=== PATIENT | female | born 2005 | race Hispanic/Latino ===

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

== ENCOUNTER 2023-04-01 22:40 | Emergency (ER) | payer OTHER ==
--- OUTSIDE RECORDS SUMMARY | 2023-04-01 23:10 | XMS REPORT | Continuity of Care Document ---
:2005 Author Organization [facility] t Address [address] [place] [address] [place] [id number] Care Team Providers Name Role Phone King LELE, Josefa Isabel Primary Care Physician PERLA ZAVALETA Attending Clinician Unavailable YAMILKA KUMAR Attending Clinician Unavailable CHULA KING Attending Clinician Unavailable SOPHIA MERCEDES Attending Clinician Unavailable SOPHIA MERCEDES Attending Clinician Unavailable Pob, [facility] Main Attending Clinician Unavailable EDSON WELCH Attending Clinician Unavailable Edson Welch DO Attending Clinician HILDA GÓMEZ Attending Clinician Unavailable Hilda Gómez MD Attending Clinician Nurse, [facility] Attending Clinician Unavailable Perla Zavaleta MD Attending Clinician Doctor Unassigned, [place] Attending Clinician Unavailable Chula King MD Attending Clinician Latosha GARCIA Attending Clinician Unavailable Latosha Guzman Attending Clinician PERLA OSBORNE Attending Clinician Unavailable Perla Osborne MD Attending Clinician Kadie Rock MD Attending Clinician KADIE ROCK Attending Clinician Unavailable GERALD PENDLETON Attending Clinician Unavailable Keerthi PILL MAKER, Gerald B Attending Clinician Liza PAC, Yamilka S Attending Clinician KJ GALLAGHER Attending Clinician Unavailable Kj Gallagher MD Attending Clinician Kanu Mercado CRNA Attending Clinician Drake Gallardo CRNA Attending Clinician Miguel Douglas MD Attending Clinician Nurse, [facility] Attending Clinician Unavailable Ultrasound, [facility] Mf Attending Clinician Unavailable Nomi Giron MD Attending Clinician Cathleen DICKEY, Iris Samson Attending Clinician Unavailable UNKNOWN, ATTENDING Attending Clinician Unavailable PERLA ZAVALETA Admitting Clinician Unavailable CHULA KING Admitting Clinician Unavailable KADIE ROCK Admitting Clinician Unavailable SOPHIA MERCEDES Admitting Clinician Unavailable Chula King MD Admitting Clinician PERLA OSBORNE Admitting Clinician Unavailable Kadie Rock MD Admitting Clinician Payers Payer Name Policy Type Policy Number Effective Date Expiration Date S z[place] [facility] [id number] 2016 HEALTH 00:00:00 [place] [facility] [facility] [id number] 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 [employer] Problems Condition Condition Condition Status Onset Resolution Last Treating Co mments Source Name Details Category Date Date Treatment Clinician Date PCOS PCOS Disease Active Univers (polycysti (polycysti 6-08 [place] c [place] syndrome[place] syndrome[place] 00 [facility] Pain Pain Disease Active Univers pelvic pelvic 4-26 ity of 00:00: [address] Galactorrh Galactorrh Disease Active U nivers ea ea 4-26 ity of 00:: [address] Possible Possible Disease Active Unive rs exposure exposure 2-13 ity of to STD to STD 00:00: [address] Abnormal Abnormal Disease Active Unive rs uterine uterine 2-13 ity of bleeding bleeding 00:00: [address] BMI BMI Disease Active Univers 30.0-30.9, 30.0-30.9, 2-13 it y of adult adult 00:00: [place] 00 [facility] Branch Late Late Disease Active Univers menses menses 2-13 ity of 00:00: [place] 00 [facility] Disease Active 2021-10 Univers control control 2-08 [place] of counseling [place] [facility] Menorrhagi Menorrhagi Disease Active 2021-10 U nivers a with a with 2-08 [place] irregular irregular [place] 00 [place] Peritonsil Peritonsil Disease Active Overview : Univers lar lar 8-16 Formatt[place] ity of abscess abscess 00:00: g of this [place] note Medical might be Branch different from the original. Added automatic ally from request for surgery [id number] Recurrent Recurrent Disease Active Overview: Univers tonsilliti tonsilliti 8-16 Formattin ity of s s 00:00: g of this [place] note Medical might be Branch different from the original. Added automatic ally from request for surgery [id number] Abnormal Abnormal Disease Active Unive rs maternal maternal 9-07 ity of glucose glucose 00:00: [place] tolerance, tolerance, 00 Me dical antepartum antepartum Br anch Acute low Acute low Disease Active Uni vers back pain back pain 5-04 ity of without without 00:00: [place] sciatica, sciatica, 00 Medi margarita unspecifie unspecifie Br anch d back d back pain pain laterality laterality Allergies, Adverse Reactions, Alerts Allergy Allergy Status Severity Reaction(s) Onset Inactive Treating Comm ents Source Name Type Date Date Clinician NO KNOWN Drug Active Univers ALLERGIE Class ity of S [facility] Social History Social Habit Start Date Stop Date Quantity Comments Source Alcohol intake 2023-03-19 2023-03-19 Ex-drinker [facility] 00:00:00 00:00:00 (finding) [facility] Exposure to 2023-01-18 2023-01-28 Not sure [facility] SARS-CoV-2 00:00:00 15:55:00 [facility] (event) [place] Tobacco use and 2022-09-18 2022-09-18 Smokeless tobacco Un iversity of exposure 00:00:00 00:00:00 non-user [facility] Sex Assigned At [birth year] Universit y of 00:00:00 00:00:00 [facility] Smoking Status Start Date Stop Date Source Never smoked tobacco [facility] Medications Ordered Filled Start Stop Current Ordering Indication Dosage Frequency Signature Comments Components Source Medication Medication Date Date Medication? Clinician (SIG) Name Name radha 2022-0 Yes [id number] 1{tbl} Take 1 Univers e-ethinyl 6-08 tablet by ity o f estradioL [place] ([place] 00 the [facility] TRI-CYCLEN, morning. Bran ch 28,) 0.18/0.215/ 0.25 mg-35 mcg (28) tablet naproxen 2022-0 Yes [id number] 550mg Take 1 Univers sodium 550 4-14 9100 tablet by ity of mg tablet 00:00: [place] 00 the [place] morning Branch and 1 tablet in the evening. Take with meals. methylPREDN 2022-0 Yes [id number] Take by Univers ISolone 4 4-14 9100 mouth ity of mg tablets 00:00: [place]INSTRU [place] CTIONS. Medical follow Branch package directions naproxen 2022-0 Yes [id number] 550mg Take 1 Univers sodium 550 4-14 9100 tablet by ity of mg tablet 00:00: [place] the [place] morning Branch and 1 tablet in the evening. Take with meals. methylPREDN 2022-0 Yes [id number] Take by Univers ISolone 4 4-14 9100 mouth ity of mg tablets 00:00: [place]INSTRU [place] CTIONS. Medical follow Branch package directions naproxen 2022-0 Yes [id number] 550mg Take 1 Univers sodium 550 4-14 9100 tablet by ity of mg tablet 00:00: [place] 00 the Medical morning Branch and 1 tablet in the evening. Take with meals. methylPREDN 3-0 Yes [id number] Take by Univers ISolone 4 4-14 9100 mouth ity of mg tablets 00:00: [place]INSTRU [place] CTIONS. Medical follow Branch package directions naproxen 2022-0 Yes [id number] 550mg Take 1 Univers sodium 550 4-14 9100 tablet by ity of mg tablet 00:00: [place] 00 the Medical morning Branch and 1 tablet in the evening. Take with meals. methylPREDN 2023-0 Yes [id number] Take by Univers ISolone 4 4-14 9100 mouth ity of mg tablets 00:00: [place]INSTRU [place] CTIONS. Medical follow Branch package directions naproxen 2023-0 Yes [id number] 550mg Take 1 Univers sodium 550 4-14 9100 tablet by ity of mg tablet 00:00: [place] 00 the Medical morning Branch and 1 tablet in the evening. Take with meals. methylPREDN 2023-0 Yes [id number] Take by Univers ISolone 4 4-14 9100 mouth ity of mg tablets 00:00: [place]INSTRU [place] CTIONS. Medical follow Branch package directions naproxen 2023-0 Yes [id number] 550mg Take 1 Univers sodium 550 4-14 9100 tablet by ity of mg tablet 00:00: [place] 00 the Medical morning Branch and 1 tablet in the evening. Take with meals. methylPREDN 3-0 Yes [id number] Take by Univers ISolone 4 4-14 9100 mouth ity of mg tablets 00:00: [place]INSTRU [place] CTIONS. Medical follow Branch package directions naproxen 2023-0 Yes [id number] 550mg Take 1 Univers sodium 550 4-14 9100 tablet by ity of mg tablet 00:00: [place] 00 the Medical morning Branch and 1 tablet in the evening. Take with meals. methylPREDN 2023-0 Yes [id number] Take by Univers ISolone 4 4-14 9100 mouth ity of mg tablets 00:00: [place]INSTRU [place] CTIONS. Medical follow Branch package directions naproxen 2023-0 Yes [id number] 550mg Take 1 Univers sodium 550 4-14 9100 tablet by ity of mg tablet 00:00: [place] 00 the Medical morning Branch and 1 tablet in the evening. Take with meals. methylPREDN 2023-0 Yes [id number] Take by Univers ISolone 4 4-14 9100 mouth ity of mg tablets 00:00: [place]INSTRU [place] CTIONS. Medical follow Branch package directions naproxen 2023-0 Yes [id number] 550mg Take 1 Univers sodium 550 4-14 9100 tablet by ity of mg tablet 00:00: [place] 00 the Medical morning Branch and 1 tablet in the evening. Take with meals. methylPREDN 2022-0 Yes [id number] Take by Univers ISolone 4 4-14 9100 mouth ity of mg tablets 00:00: [place]INSTRU [place] CTIONS. Medical follow Branch package directions naproxen 2022-0 Yes [id number] 550mg Take 1 Univers sodium 550 4-14 9100 tablet by ity of mg tablet 00:00: [place] 00 the Medical morning Branch and 1 tablet in the evening. Take with meals. methylPREDN 2022-0 Yes [id number] Take by Univers ISolone 4 4-14 9100 mouth ity of mg tablets 00:00: [place]INSTRU [place] CTIONS. Medical follow Branch package directions methocarbam 2022- Yes [id number] 500mg Take 1 Univers oL 500 mg 01-23 9100 tablet by ity of tablet 00:00: 04:59 mouth in [place] 00 :00 the Medical morning Branch and 1 tablet at noon and 1 tablet in the evening. Do all this for 5 days. methocarbam 2022- Yes [id number] 500mg Take 1 Univers oL 500 mg 14 01-29 9100 tablet by ity of tablet 00:00: 04:59 mouth in [place] 00 :00 the Medical morning Branch and 1 tablet at noon and 1 tablet in the evening. Do all this for 5 days. methocarbam 2022- No [id number] 500mg Take 1 Univers oL 500 mg 414 01-29 9100 tablet by ity of tablet 00:00: 04:59 mouth in [place] 00 :00 the Medical morning Branch and 1 tablet at noon and 1 tablet in the evening. Do all this for 5 days. methocarbam 2022- No [id number] 500mg Take 1 Univers oL 500 mg 4-14 - 9100 tablet by ity of tablet 00:00: 04:59 mouth in [place] 00 :00 the Medical morning Branch and 1 tablet at noon and 1 tablet in the evening. Do all this for 5 days. methocarbam 2022- No [id number] 500mg Take 1 Univers oL 500 mg 4-14 0420 9100 tablet by ity of tablet 00:00: 04:59 mouth in [place] 00 :00 the Medical morning Branch and 1 tablet at noon and 1 tablet in the evening. Do all this for 5 days. predniSONE 2021-10 Yes [id number] 60mg Take 3 U nivers 20 mg 2-29 tablets by ity of tablet 00:00: mouth [place] 00 every Medical morning. Branch amoxicillin 2021-10 Yes [id number] 1{tbl} Take 1 Univers -clavulanat 2-29 tablet by ity of e 875-125 00:00: mouth [place] mg per 00 every 12 Medical tablet (twelve) Branch hours. predniSONE 2021-10 Yes [id number] 60mg Take 3 U nivers 20 mg 2-29 tablets by ity of tablet 00:00: mouth [place] 00 every Medical morning. Branch amoxicillin 2021-10 Yes [id number] 1{tbl} Take 1 Univers -clavulanat 2-29 tablet by ity of e 875-125 00:00: mouth [place] mg per 00 every 12 Medical tablet (twelve) Branch hours. predniSONE 2021-10 Yes [id number] 60mg Take 3 U nivers 20 mg 2-29 tablets by ity of tablet 00:00: mouth [place] 00 every Medical morning. Branch amoxicillin 2021-10 Yes [id number] 1{tbl} Take 1 Univers -clavulanat 2-29 tablet by ity of e 875-125 00:00: mouth [place] mg per 00 every 12 Medical tablet (twelve) Branch hours. predniSONE 2021-10 Yes [id number] 60mg Take 3 U nivers 20 mg 2-29 tablets by ity of tablet 00:00: mouth [place] 00 every Medical morning. Branch amoxicillin 2021-10 Yes [id number] 1{tbl} Take 1 Univers -clavulanat 2-29 tablet by ity of e 875-125 00:00: mouth [place] mg per 00 every 12 Medical tablet (twelve) Branch hours. predniSONE 2021-10 Yes [id number] 60mg Take 3 U nivers 20 mg 2-29 tablets by ity of tablet 00:00: mouth [place] 00 every Medical morning. Branch amoxicillin 2021-10 Yes [id number] 1{tbl} Take 1 Univers -clavulanat 2-29 tablet by ity of e 875-125 00:00: mouth [place] mg per 00 every 12 Medical tablet (twelve) Branch hours. predniSONE 2021-10 Yes [id number] 60mg Take 3 U nivers 20 mg 2-29 tablets by ity of tablet 00:00: mouth [place] 00 every Medical morning. Branch amoxicillin 2021-10 Yes [id number] 1{tbl} Take 1 Univers -clavulanat 2-29 tablet by ity of e 875-125 00:00: mouth [place] mg per 00 every 12 Medical tablet (twelve) Branch hours. predniSONE 2021-10 Yes [id number] 60mg Take 3 U nivers 20 mg 2-29 tablets by ity of tablet 00:00: mouth [place] 00 every Medical morning. Branch amoxicillin 2021-10 Yes [id number] 1{tbl} Take 1 Univers -clavulanat 2-29 tablet by ity of e 875-125 00:00: mouth [place] mg per 00 every 12 Medical tablet (twelve) Branch hours. predniSONE 2021-10 Yes [id number] 60mg Take 3 U nivers 20 mg 2-29 tablets by ity of tablet 00:00: mouth [place] 00 every Medical morning. Branch amoxicillin 2021-10 Yes [id number] 1{tbl} Take 1 Univers -clavulanat 2-29 tablet by ity of e 875-125 00:00: mouth [place] mg per 00 every 12 Medical tablet (twelve) Branch hours. predniSONE 2021-10 Yes [id number] 60mg Take 3 U nivers 20 mg 2-29 tablets by ity of tablet 00:00: mouth [place] 00 every Medical morning. Branch amoxicillin 2021-10 Yes [id number] 1{tbl} Take 1 Univers -clavulanat 2-29 tablet by ity of e 875-125 00:00: mouth [place] mg per 00 every 12 Medical tablet (twelve) Branch hours. predniSONE 2021-10 Yes [id number] 60mg Take 3 U nivers 20 mg 2-29 tablets by ity of tablet 00:00: mouth [place] 00 every Medical morning. Branch amoxicillin 2021-10 Yes [id number] 1{tbl} Take 1 Univers -clavulanat 2-29 tablet by ity of e 875-125 00:00: mouth [place] mg per 00 every 12 Medical tablet (twelve) Branch hours. predniSONE 2021- Yes [id number] 60mg Take 3 U nivers 20 mg 2-29 tablets by ity of tablet 00:00: mouth [place] 00 every Medical morning. Branch amoxicillin 2021-10 Yes [id number] 1{tbl} Take 1 Univers -clavulanat 2-29 tablet by ity of e 875-125 00:00: mouth [place] mg per 00 every 12 Medical tablet (twelve) Branch hours. predniSONE 2021-10 Yes [id number] 60mg Take 3 U nivers 20 mg 2-29 tablets by ity of tablet 00:00: mouth [place] 00 every Medical morning. Branch amoxicillin 2021-10 Yes [id number] 1{tbl} Take 1 Univers -clavulanat 2-29 tablet by ity of e 875-125 00:00: mouth [place] mg per 00 every 12 Medical tablet (twelve) Branch hours. predniSONE 2021-10 Yes [id number] 60mg Take 3 U nivers 20 mg 2-29 tablets by ity of tablet 00:00: mouth [place] 00 every Medical morning. Branch amoxicillin 2021-10 Yes [id number] 1{tbl} Take 1 Univers -clavulanat 2-29 tablet [...] 00 Medical (50,000 Branch unit) capsule ergocalcife 2021-1 Yes Univer s rol, 0-04 ity of vitamin d2, 00:00: [place] 1,250 mcg 00 Medical (50,000 Branch unit) capsule ergocalcife 2021-1 Yes Univer s rol, 0-04 ity of vitamin d2, 00:00: [place] 1,250 mcg 00 Medical (50,000 Branch unit) capsule ergocalcife 2021-1 Yes Univer s rol, 0-04 ity of vitamin d2, 00:00: [place] 1,250 mcg 00 Medical (50,000 Branch unit) capsule ergocalcife 2021-1 Yes Univer s rol, 0-04 ity of vitamin d2, 00:00: [place] 1,250 mcg 00 Medical (50,000 Branch unit) capsule ergocalcife 2021-1 Yes Univer s rol, 0-04 ity of vitamin d2, 00:00: [place] 1,250 mcg 00 Medical (50,000 Branch unit) capsule ergocalcife 2021-1 Yes Univer s rol, 0-04 ity of vitamin d2, 00:00: [place] 1,250 mcg 00 Medical (50,000 Branch unit) capsule ergocalcife 2021-1 Yes Univer s rol, 0-04 ity of vitamin d2, 00:00: [place] 1,250 mcg 00 Medical (50,000 Branch unit) capsule ergocalcife 2021-1 Yes Univer s rol, 0-04 ity of vitamin d2, 00:00: [place] 1,250 mcg 00 Medical (50,000 Branch unit) capsule ergocalcife 2021-1 Yes Univer s rol, 0-04 ity of vitamin d2, 00:00: [place] 1,250 mcg 00 Medical (50,000 Branch unit) capsule ergocalcife 2021-1 Yes Univer s rol, 0-04 ity of vitamin d2, 00:00: [place] 1,250 mcg 00 Medical (50,000 Branch unit) capsule ergocalcife 2021-1 Yes Univer s rol, 0-04 ity of vitamin d2, 00:00: [place] 1,250 mcg 00 Medical (50,000 Branch unit) capsule ergocalcife 2021-1 Yes Univer s rol, 0-04 ity of vitamin d2, 00:00: [place] 1,250 mcg 00 Medical (50,000 Branch unit) capsule ergocalcife 2021-1 Yes [facility] rol, 0-04 ity of vitamin d2, 00:00: [place] 1,250 mcg 00 Medical (50,000 Branch unit) capsule ergocalcife 2021-1 Yes [facility] rol, 0-04 ity of vitamin d2, 00:00: [place] 1,250 mcg 00 Medical (50,000 Branch unit) capsule ergocalcife 2021-1 Yes [facility] rol, 0-04 ity of vitamin d2, 00:00: [place] 1,250 mcg 00 Medical (50,000 Branch unit) capsule methylPREDN 2021-0 Yes [id number] Take by [facility] ISolone 4 8-15 mouth ity of mg tablets 00:00: [place]-INSTRU [place] CTIONS. Medical follow Branch package directions methylPREDN 2021-0 Yes [id number] Take by [facility] ISolone 4 8-15 mouth ity of mg tablets 00:00: SEE-INSTRU [place] 00 CTIONS. Medical follow Branch package directions methylPREDN 2021-0 Yes [id number] Take by Univers ISolone 4 8-15 mouth ity of mg tablets 00:00: SEE-INSTRU [place] 00 CTIONS. Medical follow Branch package directions methylPREDN 2-0 Yes [id number] Take by Univers ISolone 4 8-15 mouth ity of mg tablets 00:00: SEE-INSTRU [place] 00 CTIONS. Medical follow Branch package directions methylPREDN 2-0 2022- No [id number] Take by Univers ISolone 4 8-15 12-08 mouth ity of mg tablets 00:00: 00:00 SEE-INSTRU [place] 00 :00 CTIONS. Medical follow Branch package directions methylPREDN 2-0 2022- No [id number] Take by Univers ISolone 4 8-15 12-08 mouth ity of mg tablets 00:00: 00:00 SEE-INSTRU [place] 00 :00 CTIONS. Medical follow Branch package directions amoxicillin 2-0 2022- No [id number] 1{tbl} Take 1 Univers -clavulanat 8-15 08-30 tablet by it y of e 00:00: 04:59 mouth in [place] (AUGMENTIN) 00 :00 the Medical 875-125 mg morning Branch per tablet and 1 tablet in the evening. Do all this for 14 days. methylPREDN 2021-0 Yes [id number] Take by Univers ISolone 4 7-29 mouth ity of mg tablets 00:00: SEE-INSTRU [place] 00 CTIONS. Medical follow Branch package directions methylPREDN 2021-0 Yes [id number] Take by Univers ISolone 4 7-29 mouth ity of mg tablets 00:00: SEE-INSTRU [place] 00 CTIONS. Medical follow Branch package directions methylPREDN 2021-0 Yes [id number] Take by Univers ISolone 4 7-29 mouth ity of mg tablets 00:00: [place]-INSTRU [place] 00 CTIONS. Medical follow Branch package directions methylPREDN 2021-0 Yes [id number] Take by [facility] ISolone 4 7-29 mouth ity of mg tablets 00:00: [place]-INSTRU [place] CTIONS. Medical follow Branch package directions methylPREDN 2021-0 2- No [id number] Take by Univers ISolone 4 7-29 12-08 mouth ity of mg tablets 00:00: 00:00 SEE-INSTRU [place] 00 :00 CTIONS. Medical follow Branch package directions methylPREDN 2021-0 2- No [id number] Take by [facility] ISolone 4 7-29 12-08 mouth ity of mg tablets 00:00: 00:00 SEE-INSTRU [place] 00 :00 CTIONS. Medical follow Branch package directions ondansetron 2021-0 Yes [id number] 1 or 2 Univers 4 mg tablet 7-19 tablets ity o f 00:00: every 6 [place] 00 hours as Medical needed for Branch nausea ondansetron 2021-0 Yes [id number] 1 or 2 Univers 4 mg tablet 7-19 tablets ity o f 00:00: every 6 [place] 00 hours as Medical needed for Branch nausea ondansetron 2-0 Yes [id number] 1 or 2 Univers 4 mg tablet 7-19 tablets ity o f 00:00: every 6 [place] 00 hours as Medical needed for Branch nausea ondansetron 2-0 Yes [id number] 1 or 2 Univers 4 mg tablet 7-19 tablets ity o f 00:00: every 6 [place] 00 hours as Medical needed for Branch nausea ondansetron 2-0 2022- No [id number] 1 or 2 Univers 4 mg tablet 7-19 12-08 tablets ity of 00:00: 00:00 every 6 [place] 00 :00 hours as Medical needed for Branch nausea ondansetron 0 2022- No [id number] 1 or 2 Univers 4 mg tablet 04-29-08 tablets ity of 00:00: 00:00 every 6 [place] 00 :00 hours as Medical needed for Branch nausea ibuprofen 2021-0 Yes [id number] 600mg Take 1 Un jones 600 mg 7-13 tablet by ity of tablet 00:00: mouth [place] 00 every 6 Medical (six) Branch hours as needed for Pain (scale 4-6). ibuprofen 2021-0 Yes [id number] 600mg Take 1 Un jones 600 mg 7-13 tablet by ity of tablet 00:00: mouth [place] 00 every 6 Medical (six) Branch hours as needed for Pain (scale 4-6). ibuprofen 2021-0 Yes [id number] 600mg Take 1 Un jones 600 mg 7-13 tablet by ity of tablet 00:00: mouth [place] 00 every 6 Medical (six) Branch hours as needed for Pain (scale 4-6). ibuprofen 2021-0 Yes [id number] 600mg Take 1 Un jones 600 mg 7-13 tablet by ity of tablet 00:00: mouth [place] 00 every 6 Medical (six) Branch hours as needed for Pain (scale 4-6). ibuprofen 2021-0 Yes [id number] 600mg Take 1 Un jones 600 mg 7-13 tablet by ity of tablet 00:00: mouth [place] 00 every 6 Medical (six) Branch hours as needed for Pain (scale 4-6). ibuprofen 2021-0 Yes [id number] 600mg Take 1 Un jones 600 mg 7-13 tablet by ity of tablet 00:00: mouth [place] 00 every 6 Medical (six) Branch hours as needed for Pain (scale 4-6). ibuprofen 2021-0 Yes [id number] 600mg Take 1 Un jones 600 mg 7-13 tablet by ity of tablet 00:00: mouth [place] 00 every 6 Medical (six) Branch hours as needed for Pain (scale 4-6). ibuprofen 2021-0 Yes [id number] 600mg Take 1 Un jones 600 mg 7-13 tablet by ity of tablet 00:00: mouth [place] 00 every 6 Medical (six) Branch hours as needed for Pain (scale 4-6). ibuprofen 2022-0 Yes [id number] 600mg Take 1 Un jones 600 mg 7-13 tablet by ity of tablet 00:00: mouth [place] 00 every 6 Medical (six) Branch hours as needed for Pain (scale 4-6). ibuprofen 2022-0 Yes [id number] 600mg Take 1 Un jones 600 mg 7-13 tablet by ity of tablet 00:00: mouth [place] 00 every 6 Medical (six) Branch hours as needed for Pain (scale 4-6). ibuprofen 202-0 Yes [id number] 600mg Take 1 Un jones 600 mg 7-13 tablet by ity of tablet 00:00: mouth [place] 00 every 6 Medical (six) Branch hours as needed for Pain (scale 4-6). ibuprofen 2022-0 Yes [id number] 600mg Take 1 Un jones 600 mg 7-13 tablet by ity of tablet 00:00: mouth [place] 00 every 6 Medical (six) Branch hours as needed for Pain (scale 4-6). ibuprofen 2021-0 Yes [id number] 600mg Take 1 Un jones 600 mg 7-13 tablet by ity of tablet 00:00: mouth [place] 00 every 6 Medical (six) Branch hours as needed for Pain (scale 4-6). ibuprofen 2021-0 Yes [id number] 600mg Take 1 Un jones 600 mg 7-13 tablet by ity of tablet 00:00: mouth [place] 00 every 6 Medical (six) Branch hours as needed for Pain (scale 4-6). ibuprofen 2022-0 Yes [id number] 600mg Take 1 Un jones 600 mg 7-13 tablet by ity of tablet 00:00: mouth [place] 00 every 6 Medical (six) Branch hours as needed for Pain (scale 4-6). ibuprofen 2022-0 Yes [id number] 600mg Take 1 Un jones 600 mg 7-13 tablet by ity of tablet 00:00: mouth [place] 00 every 6 Medical (six) Branch hours as needed for Pain (scale 4-6). ibuprofen 2022-0 Yes [id number] 600mg Take 1 Un jones 600 mg 7-13 tablet by ity of tablet 00:00: mouth [place] 00 every 6 Medical (six) Branch hours as needed for Pain (scale 4-6). ibuprofen 2022-0 Yes [id number] 600mg Take 1 Un jones 600 mg 7-13 tablet by ity of tablet 00:00: mouth [place] 00 every 6 Medical (six) Branch hours as needed for Pain (scale 4-6). ibuprofen 2021-0 Yes [id number] 600mg Take 1 Un jones 600 mg 7-13 tablet by ity of tablet 00:00: mouth [place] 00 every 6 Medical (six) Branch hours as needed for Pain (scale 4-6). ibuprofen 2021-0 Yes [id number] 600mg Take 1 Un jones 600 mg 7-13 tablet by ity of tablet 00:00: mouth [place] 00 every 6 Medical (six) Branch hours as needed for Pain (scale 4-6). levonorgest 2021-0 Yes [id number] 1{tbl} Take 1 Univers rel-ethinyl 4-12 tablet by ity of estradiol 00:00: mouth [place] 0.1-20 00 daily. Medical mg-mcg per Branch tablet levonorgest 2021-0 Yes [id number] 1{tbl} Take 1 Univers rel-ethinyl 4-12 tablet by ity of estradiol 00:00: mouth [place] 0.1-20 00 daily. Medical mg-mcg per Branch tablet levonorgest 2021-0 Yes [id number] 1{tbl} Take 1 Univers rel-ethinyl 4-12 tablet by ity of estradiol 00:00: mouth [place] 0.1-20 00 daily. Medical mg-mcg per Branch tablet levonorgest 2021-0 Yes [id number] 1{tbl} Take 1 Univers rel-ethinyl 4-12 tablet by ity of estradiol 00:00: mouth [place] 0.1-20 00 daily. Medical mg-mcg per Branch tablet levonorgest 2021-0 2021- No [id number] 1{tbl} Take 1 Univers rel-ethinyl 4-12 12-08 tablet by it y of estradiol 00:00: 00:00 mouth [place] 0.1-20 00 :00 daily. Medical mg-mcg per Branch tablet levonorgest 2021-0 2021- No [id number] 1{tbl} Take 1 Univers rel-ethinyl 4-12 12-08 tablet by it y of estradiol 00:00: 00:00 mouth [place] 0.1-20 00 :00 daily. Medical mg-mcg per Branch tablet Yes [id number] 1{tbl} Take 1 U nivers vit w/iron 3-29 tablet by ity of fumarate 00:00: mouth [place] and [place] 00 daily. Medical ( Branch VITAMIN WITH MINERALS) tablet Yes [id number] 1{tbl} Take 1 U nivers vit w/iron 3-29 tablet by ity of fumarate 00:00: mouth [place] and [place] 00 daily. Medical ( Branch VITAMIN WITH MINERALS) tablet Yes [id number] 1{tbl} Take 1 U nivers vit w/iron 3-29 tablet by ity of fumarate 00:00: mouth [place] and [place] 00 daily. Medical ( Branch VITAMIN WITH MINERALS) tablet Yes [id number] 1{tbl} Take 1 U nivers vit w/iron 3-29 tablet by ity of fumarate 00:00: mouth [place] and [place] 00 daily. Medical ( Branch VITAMIN WITH MINERALS) tablet 2021- No [id number] 1{tbl} Take 1 Univers vit w/iron 3-29 12-08 tablet by ity of fumarate 00:00: 00:00 mouth [place] and [place] 00 :00 daily. Medical ( Branch VITAMIN WITH MINERALS) tablet 2021- No [id number] 1{tbl} Take 1 Univers vit w/iron 3-29 12-08 tablet by ity of fumarate 00:00: 00:00 mouth [place] and [place] 00 :00 daily. Medical ( Branch VITAMIN WITH MINERALS) tablet Immunizations Ordered Filled Immunization Date Status Comments [facility] e Immunization Name Name TD 2021-06-06 Completed University of 00:00:00 [facility] TDAP 2021-06-06 Completed University of 00:00:00 [facility] [place] TDAP 2021-06-06 Completed University of 00:00: [facility] TDAP 2021-06-06 Completed University of 00:00:00 [facility] TDAP 2021-06-06 Completed University of 00:00:00 [facility] TDAP 2021-06-06 Completed University of 00:00:00 [facility] TDAP 2021-06-06 Completed University of 00:00:00 [facility] TDAP 2021-06-06 Completed University of 00:00:00 [facility] TDAP 2021-06-06 Completed University of 00:00:00 [facility] TDAP 2021-06-06 Completed University of 00:00:00 [facility] TDAP 2021-06-06 Completed University of 00:00:00 [facility] TDAP 2021-06-06 Completed University of 00:00:00 [facility] TDAP 2021-06-06 Completed University of 00:00:00 [facility] TDAP 2021-06-06 Completed University of 00:00:00 [facility] TDAP 2021-06-06 Completed University of 00:00:00 [facility] TDAP 2021-06-06 Completed University of 00:00:00 [facility] TDAP 2021-06-06 Completed University of 00:00:00 [facility] TDAP 2021-06-06 Completed University of 00:00:00 [facility] TDAP 2021-06-06 Completed University of 00:00:00 [facility] TDAP 2021-06-06 Completed University of 00:00:00 [facility] Vital Signs Vital Name Observation Time Observation Value Comments Source Systolic blood 2023-03-19 14:04:00 122 mm[Hg] Univer sity of pressure [facility] Diastolic blood 2023-03-19 14:04:00 81 mm[Hg] Unive rsity of [facility] Heart rate 2023-03-19 14:04:00 80 /min [facility] Body temperature 2023-03-19 14:04:00 36.5 Nisha [facility] Body height 2023-03-19 14:04:00 152.4 cm [facility] Body weight 2023-03-19 14:04:00 70.035 kg [facility] BMI 2023-03-19 14:04:00 30.15 kg/m2 [facility] Systolic blood 2023-01-28 18:59:00 127 mm[Hg] Univer sity of pressure [facility] Diastolic blood 2023-01-28 18:59:00 89 mm[Hg] Unive rsity of pressure [facility] Heart rate 2023-01-28 18:59:00 74 /min [facility] Respiratory rate 2023-01-28 18:59:00 18 /min [facility] 2023-01-28 18:59:00 152.4 cm Universi ty of [facility] Body weight 2023-01-28 18:59:00 70.761 kg Universi ty of [facility] BMI 2023-01-28 18:59:00 30.47 kg/m2 Universi ty of [facility] Systolic blood 2023-01-23 17:03:00 122 mm[Hg] Univer sity of pressure [facility] Branch Diastolic blood 2023-01-23 17:03:00 82 mm[Hg] Unive rsity of pressure [facility] Branch Heart rate 2023-01-23 17:03:00 91 /min Universi ty of [facility] Body temperature 2023-01-23 17:03:00 36.72 Nisha Univ ersity of [facility] Respiratory rate 2023-01-23 17:03:00 14 /min Univ ersity of [facility] Body weight 2023-01-23 17:03:00 71.396 kg Universi ty of [facility] Oxygen saturation in 2023-01-23 17:03:00 99 /min University of Arterial blood by [facility] Pulse oximetry Branch Systolic blood 2022-11-24 16:49:00 121 mm[Hg] Univer sity of pressure [facility] Diastolic blood 2022-11-24 16:49:00 85 mm[Hg] Unive rsity of pressure [facility] Heart rate 2022-11-24 16:49:00 83 /min Universi ty of [facility] Body temperature 2022-11-24 16:49:00 36.67 Nisha Univ ersity of [facility] Branch Respiratory rate 2022-11-24 16:49:00 16 /min Univ ersity of [facility] Body height 2022-11-24 16:49:00 149.9 cm Universi ty of [facility] Body weight 2022-11-24 16:49:00 70.489 kg Universi ty of [facility] BMI 2022-11-24 16:49:00 31.39 kg/m2 Universi ty of [facility] Branch Systolic blood 2022-10-10 01:39:00 130 mm[Hg] Univer sity of pressure [facility] Branch Diastolic blood 2022-10-10 01:39:00 98 mm[Hg] Unive rsity of pressure [facility] Heart rate 2022-10-10 01:39:00 102 /min Universi ty of [facility] Body temperature 2022-10-10 01:39:00 36.61 Nisha Univ ersity of [facility] Respiratory rate 2022-10-10 01:39:00 20 /min Univ ersity of [facility] Body height 2022-10-10 01:39:00 149.9 cm Universi ty of [facility] Body weight 2022-10-10 01:39:00 70.126 kg Universi ty of [facility] BMI 2022-10-10 01:39:00 31.23 kg/m2 Universi ty of [facility] Oxygen saturation in 2022-10-10 01:39:00 98 /min University of Arterial blood by [facility] Pulse oximetry Branch Systolic blood 2022-10-01 17:06:00 118 mm[Hg] Univer sity of pressure [facility] [place] Diastolic blood 2022-10-01 17:06:00 79 mm[Hg] Unive rsity of pressure [facility] Heart rate 2022-10-01 17:06:00 78 /min Universi ty of [facility] Body temperature 2022-10-01 17:06:00 36.78 Nisha Univ ersity of [facility] Branch Respiratory rate 2022-10-01 17:06:00 18 /min Univ ersity of [facility] Body height 2022-10-01 17:06:00 149.9 cm Universi ty of [facility] Body weight 2022-10-01 17:06:00 68.493 kg Universi ty of [facility] BMI 2022-10-01 17:06:00 30.50 kg/m2 Universi ty of [facility] Systolic blood 2022-09-18 15:00:00 131 mm[Hg] Univer sity of pressure [facility] Diastolic blood 2022-09-18 15:00:00 83 mm[Hg] Unive rsity of pressure [facility] Heart rate 2022-09-18 15:00:00 78 /min Universi ty of [facility] Body height 2022-09-18 15:00:00 149.9 cm Universi ty of [facility] Body weight 2022-09-18 15:00:00 68.901 kg Universi ty of [facility] BMI 2022-09-18 15:00:00 30.68 kg/m2 Universi ty [facility] Oxygen saturation in 2022-09-18 15:00:00 98 /min [facility] Arterial blood by [facility] Pulse oximetry Branch Body height 2022-07-14 16:15:00 149.9 cm Universi ty [facility] Body weight 2022-07-14 16:15:00 68.765 kg Univers ty [facility] BMI 2022-07-14 16:15:00 30.62 kg/m2 Universi ty [facility] Body weight 2022-05-26 20:56:00 66.724 kg [facility] Procedures Procedure Date / Time Performing Source Performed Clinician US PELVIS COMPLETE WITH 2023-02-24 Daren [facility] of TRANSVAGINAL 20:54:19 [facility] WOUND/ASPIRATE OR ABSCESS 2023-01-[address] [facility] sity of CULTURE 21:33:00 [facility] WOUND CULTURE [facility]23[facility]01-[facility] 21:33:00 [facility] PROLACTIN 2023-01-28 [facility] 20:10:00 [facility] THYROID STIMULATING HORMONE 2023-01-28 [facility] 20:10:00 [facility] COMP. METABOLIC PANEL (95481) 2023-01-28 Carla, Un iversity of 20:10:00 [facility] LIPID PANEL ([id number])(TOTAL 2023-01-[facility] sity of CHOLESTEROL, TRIGLYCERIDES, 20:10:00 [facility] HDL) [place] DEHYDROEPIANDROSTERONE SULFATE 2023-01-28 [facility], U niversity of 20:10:00 [facility] CBC WITH DIFF 2023-01-28 [facility] 20:10:00 [facility] GLYCOSYLATED HEMOGLOBIN (A1C) 2023-01-28 Daren, iversity of 20:10:00 [facility] HEPATITIS B SURFACE ANTIGEN 2023-01-28 [facility] ersity of 20:10:00 [facility] HCV ANTIBODY 2023-01-28 [facility] of 20:10:00 [facility] ADC OR ADILENE ONLY - RPR 2023-01-28 [facility] sity of 20:10:00 [facility] HIV 1/2 AG-AB WITH REFLEX 2023-01-28 [facility] sity of 20:10:00 [facility] GC & CHLAMYDIA AMPLIFIED ASSAY 2023-01-28 [facility], U niversity of 19:02:00 [facility] TRICHOMONAS AMPLIFIED ASSAY 2023-01-28 [facility], Univ ersity of 19:02:00 [facility] CONSENT/REFUSAL FOR DIAGNOSIS 2023-01-23 [facility] 16:59:14 [place] [facility] POCT TEST 2022-11-24 [facility] o f 00:00:00 [facility] POCT TEST 2022-10-10 Hilda Gómez [facility] 02:57:00 [facility] ASSIGNMENT OF BENEFITS 2022-10-10 Doctor Unassigned, [facility] sity of 01:54:06 [facility]AP[facility] STREP SCREEN FOR GROUP A 2022-10-10 Hilda Gómez [facility] 01:48:00 [facility] RAPID INFLUENZA A/B 2022-10-10 Hilda Gómez [facility] 01:48:00 [facility] COVID-19 (ID NOW RAPID TESTING) 2022-10-10 Hilda Gómez [facility] 01:48:00 [facility] NOTICE OF PRIVACY PRACTICES 2022-10-10 Doctor Unassigned, U niversity of 01:26:12 [place] [facility] CONSENT/REFUSAL FOR DIAGNOSIS 2022-10-10 Doctor Mtigned, [facility] AND [facility] 01:25:34 [facility] PO[facility] 2022-10-01 [facility] o f 00:00:00 [facility] POCT TEST 2022-09-18 [facility] o f 15:08:00 [facility] Encounters Start End Encounter Admission Attending Care Care Encounter Source Date/Time Date/Time Type Type Clinicians Facility Department ID 2022-05-27 Outpatient Ella ZAVALETA UTRAQUEL MARIE [id number] Univers 07:53:54 PERLA ity of [facility] 2022-05-09 Emergency X [facility] CYNTHIA [id number] Univers 15:51:37 ity of [facility] 2022-05-09 Emergency X LIZA [facility] CYNTHIA [id number] Univers 15:45:58 YAMILKA ity of [facility] 2022-05-09 Emergency X [facility] CYNTHIA [id number] Univers 15:45:27 ity of [facility] 2022-05-09 Emergency X CHRISTINE [facility] CYNTHIA [id number] Univers 15:38:57 CHULA ity of [facility] 2022-05-09 Emergency X CHRISTINE [facility] CYNTHIA [id number] Univers 14:28:14 CHULA ity [facility] 2021-08-13 Outpatient P [facility] GAURI [id number] Univers 09:55:02 ity [facility] 2023-03-19 2023-03-19 Outpatient R SOPHIA MERCEDES [facility] B [id number] Univers 09:00:00 09:17:42 SOPHIA MERCEDES ity [facility] 2023-03-19 2023-03-19 Office [facility] 1.2.840.114 [id number] Univers 09:00:00 09:17:42 Visit Sophia CHAN 350.1.13.10 it y of WOMEN'S 4.2.7.2.686 [facility] [id number] [address] 2023-03-19 2023-03-19 [facility] 1.2.840.11 [id number] Univers 00:00:00 00:00:00 Ziggygwen REZA 350.1.13.10 it [place] [facility] [id number] [address] 2023-03-03 2023-03-03 Telephone [facility] 1.2.840.11 [id number] Univers 00:00:00 00:00:00 Sophia CHAN 350.1.13.10 it y of [place] [id number] [facility] [address] [place] 2023-02-24 2023-02-24 Outpatient R CARLANAVEEN SOPHIA [facility] B [id number] Univers 15:16:23 23:59:00 SOPHIA MERCEDES [facility] 2023-02-24 2023-02-24 [facility] 1.2.840.114 [id number] Univers 15:15:00 23:59:00 Encounter Sophia MATTSON 350.1.13.10 ity of [place] 4.2.7.2.686 [facility] [id number] [facility] [address] [place] 2023-01-28 2023-01-28 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 Moses, Radha Lab Main [facility] 1.2.8 [id number] Univers 15:00:00 15:15:00 Visit Sophia Mercedes 350.1.13. 10 ity [facility] 4.2.7.2.686 [facility] [id number] Ut dical [facility] 2023-01-28 2023-01-28 Outpatient R SOPHIA MERCEDES [facility] B [id number] Univers 13:30:00 14:16:52 SOPHIA MERCEDES [facility] 2023-01-28 2023-01-28 Office Daren [facility] 1.2.840.114 [id number] Univers 13:30:00 14:16:52 Visit Sophia CHAN 350.1.13.10 it y of [facility] 4.2.7.2.686 [facility] [id number] [facility] [address] [place] 2023-01-23 2023-01-23 Outpatient R DAREN SOPHIA [facility] B [id number] Univers 14:00:00 14:00:00 SOPHIA MERCEDES [facility] 2023-01-23 2023-01-23 Emergency X FLORENTIN WELCH ERT [id number] Univers 12:04:00 12:24:00 EDSON barajas [facility] 2023-01-23 2023-01-23 Emergency Singer WIRAQUEL [id number] Univers 12:04:00 12:24:00 Edson MATTSON 350.1.13.10 i ty [facility] 4.2.7.2.686 [facility] [id number] [place] [id number] Branch 2023-01-22 2023-01-22 Outpatient R CARLANAVEEN SOPHIA [facility] B [id number] Univers 10:00:00 10:00:00 SOPHIA MERCEDES kael [facility] 2022-11-24 2022-11-24 Outpatient R DAREN SOPHIA [facility] B [id number] Univers 10:30:00 11:00:50 [facility] 2022-11-24 2022-11-24 Office Daren [facility] 1.2.840.114 [id number] Univers 10:30:00 11:00:50 Visit Sophia CHAN 350.1.13.10 it y of WOMEN'S 4.2.7.2.686 [facility] [id number] [facility] [address] [place] 2022-10-20 2022-10-20 Outpatient R DAREN SOPHIA [facility] B [id number] Univers 09:30:00 09:30:00 SOPHIA MERCEDES kael [facility] 2022-10-13 2022-10-13 Outpatient R APRIL [facility] [id number] Univers 15:00:00 15:00:00 PERLA [facility] 2022-10-09 2022-10-09 Emergency X DALIA [facility] ERT [id number] Univers 19:49:00 21:03:00 HILDA [facility] 2022-10-09 2022-10-09 Emergency Dalia [facility] [id number] Univers 19:49:00 21:03:00 Hilda MATTSON 350.1.13.10 ity of [place] 4.2.7.2.686 [facility] [id number] [place] 427844 [place] 2022-10-08 2022-10-08 Outpatient R SOPHIA MERCEDES [facility] B [id number] Univers 11:30:00 11:30:00 SOPHIA MERCEDES [facility] 2022-10-02 2022-10-02 Outpatient R SOPHIA MERCEDES [facility] B [id number] Univers 10:00:00 10:00:00 SOPHIA MERCEDES [facility] 2022-10-01 2022-10-01 Nurse Nurse, Terrence [facility] 1.2.840.114 [id number] Univers 11:00:00 11:15:00 Visit Sophia Mercedes 350.1.13.1 0 ity of WOMEN'S 4.2.7.2.686 [facility] [id number] [address] 2022-10-01 2022-10-01 Outpatient R SOPHIA MERCEDES [facility] B [id number] Univers 11:00:00 11:00:00 SOPHIA MERCEDES [facility] 2022-09-18 2022-09-18 Outpatient R SOPHIA MERCEDES [facility] B [id number] Univers 08:30:00 09:16:33 SOPHIA MERCEDES [facility] 2022-09-18 2022-09-18 Office Daren [facility] 1.2.840.114 [id number] Univers 08:30:00 09:16:33 Visit Sophia CHAN 350.1.13.10 it y of WOMEN'S 4.2.7.2.686 [facility] [id number] [address] 2022-08-18 2022-08-18 Outpatient R APRIL [facility] [id number] Univers 16:00:00 16:00:00 PERLA barajas [facility] 2022-07-14 2022-07-14 [facility] [id number] Univers 10:30:00 17:06:10 PERLA barajas [facility] 2022-07-14 2022-07-14 Office JOSE Zavaleta 1.2.840.114 [id number] Univers 10:30:00 17:06:10 Visit Perla Demarco 350.1.13.10 it y of NATIONAL 4.2.7.2.686 [place] as [id number] [address] [place] 2022-05-26 2022-05-26 Office JOSE Zavaleta 1.2.840.114 [id number] Univers 15:45:00 17:28:44 Visit Perla Demarco 350.1.13.10 it y of NATIONAL 4.2.7.2.686 [place] as BANK [id number] [facility]. [address] [place] 2022-05-26 2022-05-26 [facility] [id number] Univers 15:45:00 17:28:44 [facility] 2022-05-26 2022-05-26 Outpatient [facility] [id number] Univers 15:45:00 17:28:44 PERLA karl [facility] 2022-05-26 2022-05-26 Outpatient [facility] [id number] Univers 15:45:00 15:45:00 [facility] 2022-05-26 2022-05-26 Orders Doctor KEEGAN 1.2.840.114 [id number] Univers 00:00:00 00:00:00 Only Unassigned, WILMER 350.1.13.10 ity of [place] [facility] 4.2.7.2.686 [place] as [id number] [facility] [address] [place] 2022-05-09 2022-05-09 Emergency Coblens, TRAUMA 1.2.840.114 [id number] Univers 16:46:00 21:14:00 [facility] 350.1.13.10 it [place] [id number] [facility] 0[address] [place] 2022-05-09 2022-05-09 Emergency X Latosha GARCIA [facility] ERT [id number] Univers 11:13:00 15:36:00 ity [facility] 2022-05-09 2022-05-09 Emergency Latosha Garcia [facility] 1.2.840.114 [id number] Univers 11:13:00 15:36:00 Lesvia MATTSON 350.1.13.10 i ty of [place] 4.2.7.2.686 [facility] [id number] [address] 2022-05-09 2022-05-09 Emergency X Latosha GARCIA [facility] ERT [id number] Univers 11:13:00 15:36:00 ity [facility] 2022-04-29 2022-04-29 [facility] [id number] Univers 15:58:00 17:59:00 PERLA ity [facility] 2022-04-29 2022-04-29 [facility] [id number] Univers 15:58:00 17:59:00 Perla MATTSON 350.1.13.10 ity of [place] 4.2.7.2.686 [facility] [id number] [address] 2022-04-23 2022-04-23 Emergency X Latosha GARCIA [facility] ERT [id number] Univers 14:02:00 15:29:00 ity [facility] 2022-04-23 2022-04-23 Emergency Latosha Garcia [facility] 1.2.840.114 [id number] Univers 14:02:00 15:29:00 Lesvia MATTSON 350.1.13.10 i ty [facility] 4.2.7.2.686 [facility] [id number] [address] 2022-01-21 2022-01-21 Office Kadie Rock [facility] 1.2.840.114 [id number] Univers 13:30:00 14:09:37 Ramana MATTSON 350.1.13.10 i ty of [place] 4.2.7.2.[address] [facility] PROFESSIO [id number] Ut dical [address] BUILDING 2022-01-21 2022-01-21 Outpatient R KADIE ROCK [facility] [id number] Univers 13:30:00 14:09:37 ity [facility] 2022-01-21 2022-01-21 Outpatient R KADIE ROCK [facility] [id number] Univers 13:30:00 13:30:00 ity [facility] 2022-01-21 2022-01-21 Kadie Meng [facility] 1.2.840.11 [id number] Univers 00:00:00 00:00:00 REZA 350.1.13.10 it y of WOMENS 4.2.7.2.686 [facility] [id number] [facility] [address] [place] 2022-01-16 2022-01-16 Emergency X KEERTHI, [facility] ERT [id number] Univers 19:19:00 19:22:00 GERALD ity [facility] 2022-01-16 2022-01-16 Emergency [place], [facility] 1.2.840.114 [id number] Univers 19:19:00 19:22:00 Gerald B [place] 350.1.13.10 i ty of [place] 4.2.7.2.686 [facility] [id number] [address] 2022-01-16 2022-01-16 Emergency X KEERTHI, [facility] ERT [id number] Univers 19:19:00 19:22:00 GERALD ity [facility] 2022-01-16 2022-01-16 Emergency X KEERTHI, [facility] ERT [id number] Univers 19:19:00 19:22:00 GERALD ity [facility] 2021-11-26 2021-11-26 Emergency X KUMAR, [facility] ERT [id number] Univers 13:04:00 14:50:00 YAMILKA ity [facility] 2021-11-26 2021-11-26 Emergency Liza, [facility] [id number] Univers 13:04:00 14:50:00 Yamilka S [place] 350.1.13.10 i ty of [place] 4.2.7.2.686 [facility] [id number] [address] 2021-11-26 2021-11-26 Emergency [facility] [id number] Univers 13:04:00 14:50:00 YAMILKA ity [facility] 2021-11-13 2021-11-13 Telephone Kadie Rock [facility] 1.2.840.11 [id number] Univers 00:00:00 00:00:00 REZA 350.1.13.10 it y [place]2.[place] [id number] [address] 2021-11-07 2021-11-07 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 Moses, Adc Lab Main [facility] 1.2.8 40.114 [id number] Univers 13:45:00 14:00:00 Visit Kadie [place] 350.1.13.10 ity [facility] 4.2.7.2.[place] [id number] Ut dical [address] 2021-11-07 2021-11-07 Outpatient R KADIE ROCK [facility] [id number] Univers 13:45:00 13:45:00 ity [facility] 2021-11-04 2021-11-04 Telephone Kadie Rock [facility] 1.2.840.11 4 [id number] Univers 00:00:00 00:00:00 REZA 350.1.13.10 it [place] [id number] [address] 2021-10-31 2021-10-31 Outpatient R KADIE ROCK [facility] [id number] Univers 13:30:00 14:08:32 ity [facility] 2021-10-31 2021-10-31 Office Kadie Rock [facility] 1.2.840.114 [id number] Univers 13:30:00 14:08:32 Visit REZA 350.1.13.10 it [place] [id number] [address] 2021-10-31 2021-10-31 Outpatient R KADIE ROCK [facility] [id number] Univers 13:30:00 13:30:00 ity [facility] 2021-09-27 2021-09-27 Outpatient R KADIE ROCK [facility] [id number] Univers 15:30:00 17:19:02 ity [facility] 2021-09-27 2021-09-27 Office Kadie Rock [facility] 1.2.840.114 [id number] Univers 15:30:00 17:19:02 Visit TWILA 350.1.13.10 i ty [facility] [place] [id number] Ut dical [address] 2021-09-27 2021-09-27 Outpatient R KADIE ROCK [facility] [id number] Univers 15:30:00 17:19:02 ity of [facility] 2021-09-27 2021-09-27 Telephone Kadie Rock 1.2.840.11 [id number] Univers 00:00:00 00:00:00 REZA 350.1.13.10 it [place] [id number] [address] 2021-09-27 2021-09-27 Orders Doctor KEEGAN 1.2.840.114 [id number] Univers 00:00:00 00:00:00 Only Unassigned, WILMER 350.1.13.10 ity of [place] [facility] 4.2.7.2.686 [place] as [id number] [address] 2021-09-12 2021-09-12 Telephone Kadie Rock 1.2.840.11 4 [id number] Univers 00:00:00 00:00:00 REZA 350.1.13.10 it [place] [id number] [address] 2021-09-10 2021-09-10 Outpatient R KADIE ROCK [facility] [id number] Univers 13:00:00 13:00:00 ity [facility] 2021-09-09 2021-09-09 Outpatient R KADIE ROCK [facility] [id number] Univers 15:15:00 15:51:16 ity [facility] 2021-09-09 2021-09-09 Routine Kadie Rock WIRAQUEL MICHELLE 1.2.840.114 [id number] Univers 15:13:19 15:51:16 REZA 350.1.13.10 i ty of [place] [id number] [address] 2021-09-04 2021-09-04 Nurse Nurse, [facility] 1.2.840.114 [id number] Univers 13:25:52 13:34:15 Visit Kadie Rock 350.1.13.10 ity of WOMEN'S 4.2.7.2.686 [facility] [id number] [address] 2021-09-04 2021-09-04 Outpatient R KADIE ROCK [facility] [id number] Univers 13:00:00 13:34:15 ity of [facility] 2021-08-23 2021-08-23 Outpatient R KJ GALLAGHER [facility] [id number] Univers 11:00:00 11:17:16 ity of [facility] 2021-08-23 2021-08-23 Nurse Nurse, [facility] 1.2.840.114 [id number] Univers 10:53:34 11:17:16 Visit Kj Gallagher 350.1.13.10 ity of WOMEN'S 4.2.7.2.686 [facility] [id number] [address] 2021-08-15 2021-08-18 Inpatient P KADIE ROCK [facility] GAURI [id number] Univers 09:58:00 12:30:00 ity of [facility] 2021-08-15 2021-08-18 [facility] Kadie Rock [facility] 1.2.840.114 [id number] Univers 09:58:00 12:30:00 Encounter TWILA 350.1.13.10 ity of [place] 4.2.7.2.686 [facility] [id number] [address] 2021-08-18 2021-08-18 [place] Kadie Rock [facility] 1.2.840.11 4 [id number] Univers 00:00:00 00:00:00 REZA 350.1.13.10 it y of WOMEN'S 4.2.7.2.686 [facility] [id number] [address] 2021-08-16 2021-08-16 Anesthesia Jess [facility] 1.2.840.114 [id number] Univers 20:03:10 20:03:10 Event Kanu TWILA 350.1.13.10 i ty [facility] 4.2.7.2.686 [facility] [id number] [facility] [address] 2021-08-16 2021-08-16 Anesthesia Drake Gallardo [facility] 1.2.8 40.114 [id number] Univers 07:16:00 14:08:00 Event Miguel Douglas TWILA 350.1.13.10 ity of [place] 4.2.7.2.686 [facility] [id number] [facility] [address] 2021-08-16 2021-08-16 Surgery Esvin Rockn [facility] 1.2.840.114 [id number] [facility] 00:00:00 00:00:00 TWILA 350.1.13.10 i ty of [place] 4.2.7.2.686 [facility] [id number] [facility] [address] 2021-08-15 2021-08-15 Routine Pranav Kadie [facility] 1.2.840.114 [id number] Univers 08:04:05 09:03:46 REZA 350.1.13.10 i ty of Visit WOMEN'S 4.2.7.2.686 [facility] [id number] [facility] [address] 2021-08-15 2021-08-15 Outpatient R ESVIN ROCKN [facility] [id number] [facility] 08:00:00 09:03:46 ity of [facility] 2021-08-09 2021-08-09 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 Radha Lopes Lab Main [facility] 1.2.8 40.114 [id number] [facility] 14:28:40 14:43:40 Visit Pranav Kadiejasbir MATTSON 350.1.13.10 ity [facility] 4.2.7.2.686 [facility] [id number] Ut dic[address] 2021-08-09 2021-08-09 Routine Pranav Kadie [facility] 1.2.840.114 [id number] [facility] 11:28:18 14:10:27 ANGLESELVIN 350.1.13.10 ity of [place] [id number] Ut dical [address] 2021-08-09 2021-08-09 Outpatient R KADIE ROCK [facility] [id number] Univers 11:15:00 14:10:27 ity of [facility] 2021-08-09 2021-08-09 Orders Doctor KEEGAN 1.2.840.114 [id number] Univers 00:00:00 00:00:00 Only Unassigned, WILMER 350.1.13.10 ity of [place] [facility] 4.2.7.2.686 [place] [id number] [facility] [address] 2021-08-08 2021-08-08 Outpatient R ESVIN ROCKN [facility] [id number] Univers 15:15:00 15:15:00 ity [facility] 2021-08-06 2021-08-06 Outpatient P PRANAVESVINN [facility] [id number] Univers 15:38:00 16:45:00 ity of [facility] 2021-08-06 2021-08-06 [facility] Kadie Rock [facility] 1.2.840.114 [id number] Univers 15:38:00 16:45:00 Encounter Rudy 350.1.13.10 [place] [id number] [facility] [address] 2021-08-06 2021-08-06 Telephone PranavKadie WIRAQUEL Michelle 1.2.840.11 [id number] Univers 00:00:00 00:00:00 Reza 350.1.13.10 it [place] [id number] [address] 2021-08-01 2021-08-01 Routine PranavKadie [facility] Michelle 1.2.840.114 [id number] Univers 13:55:38 14:36:36 Reza 350.1.13.10 i ty of Visit [place]'s [place] [id number] [address] 2021-08-01 2021-08-01 Outpatient R KADIE ROCK [facility] [id number] Univers 13:45:00 13:45:00 ity [facility] 2021-07-29 2021-07-29 Outpatient R KADIE ROCK [facility] [id number] Univers 08:00:00 08:00:00 ity [facility] 2021-07-22 2021-07-22 Nurse Nurse, [facility] 1.2.840.114 [id number] Univers 15:32:02 16:12:55 Visit Kadie [place] 350.1.13.10 [place] [id number] Ut dical nal [address] [place] [address] 2021-07-22 2021-07-22 Outpatient R [facility] [id number] Univers 15:30:00 15:30:00 ity [facility] 2021-07-22 2021-07-22 Routine Kadie Rock Michelle 1.2.840.114 [id number] Univers 13:34:00 13:57:40 Reza 350.1.13.10 i ty of Visit [place] [id number] [address] 2021-07-22 2021-07-22 Letter Nurse, [facility] 1.2.840.114 [id number] Univers 00:00:00 00:00:00 (Out) WomenLakishas Twila 350.1.13.10 i ty of Health [place].2.[place] [id number] Ut dical nal [address] [place] [address] 2021-07-16 2021-07-16 Telephone Kadie Rock 1.2.840.11 [id number] Univers 00:00:00 00:00:00 Reza 350.1.13.10 it [place] [id number] [address] 2021-07-15 2021-07-15 Routine Kadie Rock 1.2.840.114 [id number] Univers 11:22:22 11:59:52 Reza 350.1.13.10 i ty of Visit [place]'s [place] [id number] [address] 2021-07-15 2021-07-15 Outpatient R KADIE ROCK [facility] [id number] Univers 11:15:00 11:15:00 ity of [facility] 2021-07-14 2021-07-14 Telephone Kadie Rock WIRAQUEL Michelle 1.2.840.11 [id number] Univers 00:00:00 00:00:00 Reza 350.1.13.10 it [place] [id number] [address] 2021-07-08 2021-07-08 Telephone Kadie Rock 1.2.840.11 4 [id number] Univers 00:00:00 00:00:00 Reza 350.1.13.10 it y of [place] [id number] [address] 2021-07-05 2021-07-05 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 Moses, Radha Lab Main [facility] 1.2.8 40.114 [id number] Univers 09:18:21 09:33:21 Visit Kadie Rock 350.1.13.10 it[place] of [place].2.[place] [id number] Ut dical nal [address] [place] [address] 2021-07-05 2021-07-05 Outpatient R KADIE ROCK [facility] [id number] Univers 09:15:00 09:15:00 ity of [facility] 2021-07-05 2021-07-05 Orders Doctor KEEGAN 1.2.840.114 [id number] Univers 00:00:00 00:00:00 Only Unassigned, WILMER 350.1.13.10 ity of [place] [facility] 4.2.7.2.686 [place] [id number] [address] 2021-07-01 2021-07-01 Routine Kadie Rock [facility] Miguel Angel 1.2.840.114 [id number] Univers 12:55:46 13:48:40 Reza 350.1.13.10 i ty of Visit [place]'s [place] [id number] [address] 2021-07-01 2021-07-01 Outpatient R KADIE ROCK [facility] [id number] Univers 13:00:00 13:00:00 ity of [facility] 2021-07-01 2021-07-01 Letter Kadie Rock 1.2.840.114 [id number] Univers 00:00:00 00:00:00 (Out) Reza 350.1.13.10 it [place] of [place] [id number] [address] 2021-07-01 2021-07-01 Kadie Colin 1.2.840.114 [id number] Univers 00:00:00 00:00:00 (Out) Reza 350.1.13.10 it [place] of [place] [id number] [address] 2021-07-01 2021-07-01 Letter Kadie Rock 1.2.840.114 [id number] Univers 00:00:00 00:00:00 (Out) Reza 350.1.13.10 it [place] [id number] [address] 2021-07-01 2021-07-01 Letter Kadie Rock 1.2.840.114 [id number] Univers 00:00:00 00:00:00 (Out) Reza 350.1.13.10 it [place] [id number] [address] 2021-06-19 2021-06-19 Osmar Kadie [place] 1.2.840.11 4 [id number] Univers 00:00:00 00:00:00 Reza 350.1.13.10 it y of Pediatric 4.2.7.2.686 [facility] [id number] [address] 2021-06-18 2021-06-18 Routine Kadie Rock 1.2.840.114 [id number] Univers 14:22:01 15:24:05 Reza 350.1.13.10 i ty of Visit [place] [id number] [address] 2021-06-18 2021-06-18 Routine Kadie Rock 1.2.840.114 [id number] Univers 14:22:01 15:24:05 Reza 350.1.13.10 i ty of Visit [place]'s 4[place]2.[place] [id number] [address] 2021-06-18 2021-06-18 Outpatient R KADIE ROCK [facility] [id number] [facility] 14:30:00 14:30:00 ity of [facility] 2021-06-18 2021-06-18 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 Moses, [facility] Lab Main [facility] 1.2.8 40.114 [id number] Univers 11:36:41 11:51:41 Visit Kadie Rock 350.1.13.10 it[place] [id number] Ut dic[address] 2021-06-18 2021-06-18 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 Moses, [facility] Lab Main [facility] 1.2.8 40.114 [id number] Univers 11:36:41 11:51:41 Visit Kadie Rock 350.1.13.10 it[place] of [place] 4[place].2.[place] [id number] Ut dical nal [address] [place] [address] 2021-06-06 2021-06-06 Routine Kadie Rock Michelle 1.2.840.114 [id number] Univers 11:21:25 12:13:40 Erza 350.1.13.10 i ty of Visit [place]'s 4.2.[place].2.[place] [id number] [address] 2021-06-06 2021-06-06 Routine Kadie Rock [facility] 1.2.840.114 [id number] Univers 11:21:25 12:13:40 Reza 350.1.13.10 i ty of Visit Women's 4.2.7.2.686 [place] [facility] [id number] [address] 2021-06-06 2021-06-06 Outpatient R KADIE ROCK [facility] [id number] Univers 11:15:00 11:15:00 ity of [facility] 2021-05-31 2021-05-31 Orders Doctor KEEGAN 1.2.840.114 [id number] Univers 00:00:00 00:00:00 Only Unassigned, WILMER 350.1.13.10 ity of [facility] 4.2.7.2.686 [place] [id number] [place] [address] 2021-05-09 2021-05-09 Outpatient R KADIE ROCK [facility] [id number] Univers 10:45:00 10:45:00 ity of [facility] 2021-04-19 2021-04-19 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 Светлана, [facility] 1.2 .840.114 [id number] Univers 13:51:24 14:51:24 Visit Nomi Giron 350.1.13.10 ity [facility] 4.2.7.2.686 [facility]ash[place] s [facility] [id number] Ut dical [address] 2021-04-19 2021-04-19 Outpatient P [facility] [id number] Univers 14:00:00 14:00:00 ity of [facility] 2021-04-11 2021-04-11 Outpatient R KADIE ROCK [facility] [id number] Univers 13:45:00 13:45:00 ity of [facility] 2021-03-29 2021-03-29 Outpatient R KADIE ROCK [facility] [id number] Univers 09:45:00 09:45:00 ity [facility] 2021-03-29 2021-03-29 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 Pojoseph, Adc Lab Main [facility] 1.2.8 40.114 [id number] Univers 09:04:17 09:19:17 Visit Kadie Rock 350.1.13.10 it[place] [id number] [address] 2021-03-29 2021-03-29 Orders Doctor KEEGAN 1.2.840.114 [id number] Univers 00:00:00 00:00:00 Only Unassigned, WILMER 350.1.13.10 ity of [place] [facility] 4.2.7.2.686 [place] [id number] [address] 2021-03-14 2021-03-14 Outpatient R KADIE ROCK [facility] [id number] Univers 13:45:00 13:45:00 ity of [facility] 2021-03-14 2021-03-14 Orders Doctor KEEGAN 1.2.840.114 [id number] Univers 00:00:00 00:00:00 Only Unassigned, WILMER 350.1.13.10 [facility] 4.2.7.2.686 [place] [id number] [address] 2021-02-13 2021-02-13 Outpatient R KADIE ROCK [facility] [id number] Univers 12:30:00 12:30:00 ity of [facility] 2021-02-13 2021-02-13 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 Radha Lopes Lab Main [facility] 1.2.8 40.114 [id number] Univers 12:06:52 12:21:52 Visit Kadie Rock 350.1.13.10 it[place].2.[place] [id number] [address] 2021-02-13 2021-02-13 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 Moses, [facility] 1.2.840.114 [id number] 12:06:52 12:21:52 Visit Lab Main Rudy 350.1.13.10 [place] 4.2.7.2.686 Professio [id number] [address] 2021-02-13 2021-02-13 Orders Doctor ALLISON 1.2.840.114 [id number] Univers 00:00:00 00:00:00 Only Unassigned, WILMER 350.1.13.10 ity of [place] [facility] 4.2.7.2.686 [place] [id number] [address] 2021-02-13 2021-02-13 Orders Doctor KEEGAN 1Shara2.840.114 [id number] 00:00:00 00:00:00 Only Unassigned, WILMER 350.1.13.10 [place] [facility] 4.2.7.2.686 [id number] 2021-02-12 2021-02-12 Outpatient R KADIE ROCK [facility] [id number] Univers 13:45:00 13:45:00 ity [facility] 2021-01-22 2021-01-22 Outpatient R KADIE ROCK [facility] [id number] Univers 16:00:00 16:00:00 ity [facility] 2021-01-08 2021-01-08 Orders Doctor KEEGAN 1Shara2.840.114 [id number] Univers 00:00:00 00:00:00 Only Unassigned, WILMER 350.1.13.10 ity of [place] [facility] 4.2.7.2.686 [place] [id number] [address] 2021-01-07 2021-01-07 Outpatient R KADIE ROCK [facility] [id number] Univers 08:30:00 08:30:00 ity [facility] 2020-06-11 2020-06-11 Letter KEEGAN Connolly 1.2.840.114 [id number] Univers 00:00:00 00:00:00 (Out) Iris GUILLEN 350.1.13.10 it y of [facility] 4.2.7.2.686 [place] [id number] [address] 2020-06-11 2020-06-11 Letter KEEGAN Connolly 1.2.840.114 [id number] 00:00:00 00:00:00 (Out) Iris GUILLEN 350.1.13.10 HOSPITAL 4.2.7.2.686 [id number] 019 2020-06-08 2020-06-08 Outpatient R EVIN, [facility] [id number] Univers 14:15:00 14:15:00 ATTENDING ity [facility] Results Test Description Test Time Test Comments Results Result Comments Source PROLACTIN 2023-01-29 09:12:15 Test Item Value Reference Range Interpretation Comme nts PROLACTIN (test code = 9360717078) 7.3 ng/mL 3.3-26.7 Lab Interpretation (test code = 61372-8) Normal [facility]HYDROEPIANDROSTERONE [id number] 09:12:15 Test Item Value Reference Range Interpretation Comments DHEA-S (test code = 2234.3 ng/mL 1332884312) ANTONIO (test code = Normal Ranges for DHEA ANTONIO) SO4 Prepubertal: ? ? 50-995 ng/mLAdult: ? 650-3400 ng/mL Adult levels may decrease with age after age 50. ? Decreased level may be seen in term pregnancies. ? Pubertal is based on physical examination. ? [facility] CenterHCV [id number] 07:01:39 Test Item Value Reference Range Interpretation Comments HCV Ab (test code = 62508-3) Negative HCV Semi-Quantitative (test code = 0.03 94964-2) [facility] CenterHEPATITIS B SURFACE [id number] 06:44:18 Test Item Value Reference Range Interpretation Comments HBsAg Semi-Quantitative (test code = 0.06 Negative 5195-3) [facility] OR ADILENE ONLY - [id number] 03:57:58 Test Item Value Reference Range Interpretation Comments RPR (Qualitative) (test code = Nonreactive Nonreactive 23613-0) Lab Interpretation (test code = Normal 89500-1) [facility] CenterCB WITH [id number] 00:07:19 Test Item Value Reference Range Interpretation Comments WBC (test code = 7.75 See_Comment [Automated message] 1090-2) The system [employer] generated this result transmitted ref erence range: 4.30 - 1 1.10 10*3/?L. The re ference range was not u sed to interpret this result as normal/abnor mal. RBC (test code = 4.44 See_Comment [Automated message] 259-8) The system [employer] generated this result transmitted ref erence range: 3.93 - 5 .25 10*6/?L. The re ference range was not u sed to interpret this result as normal/abnor mal. HGB (test code = 12.9 g/dL 11.6-15.0 718-7) HCT (test code = 38.9 % 35.7-45.2 4544-3) MCV (test code = 87.6 fL 80.6-95.5 787-2) MCH (test code = 29.1 pg 25.9-32.8 785-6) MCHC (test code = 33.2 g/dL 31.6-35.1 786-4) RDW-SD (test code 39.5 fL 39.0-49.9 = 92591-1) RDW-CV (test code 12.2 % 12.0-15.5 = 788-0) PLT (test code = 334 See_Comment [Automated message] 777-3) The system [employer] generated this result transmitted ref erence range: 166 - 35 8 10*3/?L. The re ference range was not u sed to interpret this result as normal/abnor mal. MPV (test code = 10.4 fL 9.5-12.9 55625-6) NRBC/100 WBC (test 0.0 See_Comment [Automat ed message] code = 4263164935) The syste m which generated this result transmitted ref erence range: 0.0 - 10 .0 /100 WBCs. The refer ence range was not u sed to interpret this result as normal/abnor mal. NRBC x10^3 (test See_Comment [Automated message] code = 5471521403) The syste m which generated this result transmitted ref erence range: 10*3/?L. The reference range was not used to interpr et this result as normal/abnormal . GRAN MAT (NEUT) % 67.4 % (test code = 770-8) IMM GRAN % (test 0.30 % code = 4910631824) LYMPH % (test code 24.9 % = 736-9) MONO % (test code 5.3 % = 5905-5) EOS % (test code = 1.3 % 713-8) BASO % (test code 0.8 % = 706-2) GRAN MAT 5.23 10*3/uL 1.88-7.09 x10^3(ANC) (test code = 6190537921) IMM GRAN x10^3 0.00-0.06 (test code = 6176133758) LYMPH x10^3 (test 1.93 10*3/uL 1.32-3.29 code = 731-0) MONO x10^3 (test 0.41 10*3/uL 0.33-0.92 code = 742-7) EOS x10^3 (test 0.10 10*3/uL 0.03-0.39 code = 711-2) BASO x10^3 (test 0.06 10*3/uL 0.01-0.07 code = 704-7) [facility] CenterGLYCOSYLATED HEMOGLOBIN (A1C)2023-01-28 22:01:59 Test Item Value Reference Range Interpretation Comments HGB A1C (test code = 4.7 % 4.0-5.7 4548-4) ANTONIO (test code = ANTONIO) Reference RangesNormal: <5.7%Prediabetes: 5.7 - 6.4%Diabetes: > 6.5% Lab Interpretation (test Normal code = 54907-7) [facility] CenterHIV 1/2 AG-AB WITH [id number] 21:56:38 Test Item Value Reference Range Interpretation Comments HIV 0.08 Negative Semi-quantitative (test code = 55852-3) ANTONIO (test code = Non-reactive for HIV-1 ANTONIO) antigen and HIV-1/HIV-2 antibodies. ?No laboratory evidence of HIV infection. ?Repeat in 2-4 weeks if acute HIV infection is suspected. [facility] CenterTHYROID STIMULATING [id number] 21:46:58 Test Item Value Reference Range Interpretation Comments TSH (test code = 0.96 See_Comment [Automated message] 1539180941) The system [employer] generated this result transmitted ref erence range: 0.45 - 4 .70 mIU/L. The refe rence range was not u sed to interpret this result as normal/abnor mal. Lab Interpretation (test Normal code = 82747-1) [facility] CenterLIPID PANEL (40294)(TOTAL CHOLESTEROL, TRIGLYCERIDES, HDL)2023-01-28 21:19:54 Test Item Value Reference Range Interpretation Comments CHOL (test code = 9079661982) 178 mg/dL 120-200 HDL (test code = 6393454228) 56 mg/dL >=50 HDLC RATIO (test code = 9067569984) 3.2 <=4.5 TRIG (test code = 9515579030) 78 mg/dL 30-170 LDL CHOL (test code = 07129-9) 106 mg/dL <=160 VLDL (test code = 7822771189) 16 mg/dL 5-60 Lab Interpretation (test code = Normal 31903-6) [facility]. METABOLIC PANEL (56912)2023-01-28 21:19:33 Test Item Value Reference Range Interpretation Comments NA (test code = 141 mmol/L 135-145 6905775928) K (test code = 4.3 mmol/L 3.5-5.0 9567601719) CL (test code = 103 mmol/L 98-108 1188469115) CO2 TOTAL (test code 26 mmol/L 23-31 = 7182073526) AGAP (test code = 12 2-16 4025758364) BUN (test code = 11 mg/dL 7-23 4064649568) GLUCOSE (test code = 78 mg/dL 70-110 5346307496) CREATININE (test code 0.51 mg/dL 0.50-1.04 = 5873085349) TOTAL BILI (test code 0.9 mg/dL 0.1-1.1 = 8994508526) CALCIUM (test code = 9.8 mg/dL 8.6-10.6 8520450392) T PROTEIN (test code 7.9 g/dL 6.3-8.2 = 4104819599) ALBUMIN (test code = 4.9 g/dL 3.5-5.0 4432469526) ALK PHOS (test code = 74 U/L 34-122 9750105338) ALTv (test code = 20 U/L 5-35 1742-6) AST(SGOT) (test code 25 U/L 13-40 = 0009741358) eGFR (test code = 155.4 mL/min/1.73m2 5634885238) ANTONIO (test code = ANTONIO) Association of Glomerular Filtration Rate (GFR) and Staging of Kidney Disease* + + +- +| GFR (mL/min/1.73 m2) ?| With Kidney Damage ?| ?Without Kidney Damage+ ------+ ----+ ------+| ?>90 ?| ?Stage one ?| ? Normal ?+ -+ + -+| ?60-89 ?| ?Stage two ?| ? Decreased GFR ? + + +- +| ?30-59 ?| ?Stage three ?| ? Stage three ? + + +- +| ?15-29 ?| ?Stage four ? | ? Stage four ?+ -+ + -+| ?<15 (or dialysis) ? ?| ?Stage five ? | ? Stage five ?+ -+ + -+ *Each stage assumes the associated GFR level has been in effect for at least three months. ?Stages 1 to 5, with or without kidney disease, indicate chronic kidney disease. Notes: Determination of stages one and two (with eGFR >59mL/min/1.73 m2) requires estimation of kidney damage for at least three months as defined by structural or functional abnormalities of the kidney, manifested by either:Pathological abnormalities or Markers of kidney damage (including abnormalities in the composition of the blood or urine or abnormalities in imaging tests). [facility] [id number] 16:52:00 Test Item Value Reference Range Interpretation Comments POCT PREG (test code = 1605) Negative On board controls acceptable with C Yes Line (test code = 3574) POCT PREG LOT # (test code = 3575) POCT PREG TEST DATE (test code = 3576) [facility] [id number] 16:52:00 Test Item Value Reference Range Interpretation Comments POCT PREG (test code = 1605) Negative On board controls acceptable with C Yes Line (test code = 3574) POCT PREG LOT # (test code = 3575) POCT PREG TEST DATE (test code = 3576) [facility] [id number] 02:57:00 Test Item Value Reference Range Interpretation Comments POCT PREG (test code = 1605) neg On board controls acceptable with yes C Line (test code = 3574) POCT PREG LOT # (test code = 3575) [id number] POCT PREG TEST DATE (test 01/10/2024 code = 3576) Lab Interpretation (test code = Normal 06817-5) [facility] [id number] 17:05:00 Test Item Value Reference Range Interpretation Comments POCT PREG (test code = 1605) Negative On board controls acceptable with C Yes Line (test code = 3574) POCT PREG LOT # (test code = 3575) POCT PREG TEST DATE (test code = 3576) [facility] [id number] 15:08:00 Test Item Value Reference Range Interpretation Comments POCT PREG (test code = 1605) Negative On board controls acceptable with C Yes Line (test code = 3574) POCT PREG LOT # (test code = 3575) POCT PREG TEST DATE (test code = 3576) [facility] [id number] 15:08:00 Test Item Value Reference Range Interpretation Comments POCT PREG (test code = 1605) Negative On board controls acceptable with C Yes Line (test code = 3574) POCT PREG LOT # (test code = 3575) POCT PREG TEST DATE (test code = 3576) [facility]"
--- NOTE | 2023-04-02 00:02 | EDPHYS ---
Physician Documentation [facility] Name: Laina Palomo Age: 17 yrs Sex: Female : 2005 Arrival Date: 04/01/2023 Time: 22:40 Bed 11 Private MD: ED Physician Sergo Zuluaga HPI: 04/01 23:59 This 17 yrs old Female presents to ER via Ambulatory with complaints of no jmm symptoms. 23:59 Patient states her child was recently diagnosed with influenza. Advised by her work she jmm would need to be cleared to return due to contact. Patient denies cough, fever, sore throat, ect. . 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 Flu vaccine is not up to date. - Social history:: Smoking status: Patient denies any tobacco usage or history of. Patient uses alcohol, occasionally. ROS: 23:59 Constitutional: Negative for fever, chills, and weight loss, Cardiovascular: Negative jmm for chest pain, palpitations, and edema, Respiratory: Negative for shortness of breath, cough, wheezing, and pleuritic chest pain. 23:59 All other systems are negative. Exam: 23:59 Constitutional: This is a well developed, well nourished patient who is awake, alert, jmm and in no acute distress. Head/Face: atraumatic. Eyes: EOMI, no conjunctival erythema appreciated ENT: Moist Mucus Membranes Neck: Trachea midline, Supple Chest/axilla: Normal chest wall appearance and motion. Cardiovascular: Regular rate and rhythm. No edema appreciated Respiratory: Normal respirations, no respiratory distress appreciated Abdomen/GI: Non distended Back: Normal ROM Skin: General appearance color normal MS/ Extremity: Moves all extremities, no obvious deformities appreciated, no edema noted to the lower extremities Neuro: Awake and alert Psych: Behavior is normal, Mood is normal, Patient is cooperative and pleasant Vital Signs: 22:54 BP 117 / 77; Pulse 67; Resp 15 S; Temp 98.4(O); Pulse Ox 100% on R/A; Weight 68.04 kg lg3 (R); Height 5 ft. 0 in. (R); Pain 0/10; 22:54 Body Mass Index 29.29 (68.04 kg, 152.4 cm) lg3 22:54 Pain Scale: Adult lg3 MDM: 22:49 Patient medically screened. [facility] 23:59 Data reviewed: vital signs, nurses notes, lab test result(s). Counseling: I had a [facility] detailed discussion with the patient and/or guardian regarding: the historical points, exam findings, and any diagnostic results supporting the discharge/admit diagnosis, lab results, the need for outpatient follow up, to return to the emergency department if symptoms worsen or persist or if there are any questions or concerns that arise at home. 04/01 22:49 Order name: Influenza Screen (a \T\ B); Complete Time: 23:[address] [facility] Administered Medications: No medications were administered Disposition Summary: 04/02/23 00:01 Discharge Ordered Location: Home [facility] Condition: Stable [facility] Diagnosis - Person with feared health complaint in whom no diagnosis is made [facility] Followup: [facility] - With: Private Physician - When: As needed - Reason: Recheck today's complaints, Continuance of care, Re-evaluation by your physician Discharge Instructions: - Discharge Summary Sheet [facility] Forms: - Work release form [facility] - Medication Reconciliation Form [facility] - Thank You Letter [facility] - Antibiotic Education [facility] - Prescription Opioid Use [facility] Addendum: 04/03/2023 05:19 Co-signature as Attending Physician, Sergo Zuluaga MD I agree with the assessment s p4 and plan of care. I reviewed the patient's care provided by the Advanced Practice Provider and agree with the diagnosis and treatment plan. Signatures: Dispatcher [employer] EDMckay Bal PA PA jmm Gibson, Lacie, NOBLE RN lg3 Sergo Zuluaga MD MD sp4
--- NOTE | 2023-04-02 00:02 | ER ---
Nurse's Notes [facility] Name: Laina Palomo Age: 17 yrs Sex: Female : 2005 Arrival Date: 04/01/2023 Time: 22:40 Bed 11 Private MD: Diagnosis: Person with feared health complaint in whom no diagnosis is made Presentation: 04/01 22:54 Chief complaint: Patient states: my son tested positive for flu a few days ago and i lg3 have been out from work with him. my job said i have to come get tested before i can come back to work. denies any flu like symptoms. Coronavirus screen: Client denies travel out of the [place] in the last 14 days. At this time, the client does not indicate any symptoms associated with coronavirus-19. Ebola Screen: No symptoms or risks identified at this time. Initial Sepsis Screen: Does the patient meet any 2 criteria? No. Patient's initial sepsis screen is negative. Does the patient have a suspected source of infection? No. Patient's initial sepsis screen is negative. Risk Assessment: Do you want to hurt yourself or someone else? Patient reports no desire to harm self or others. Onset of symptoms was April 01, 2023. 22:54 Method Of Arrival: Ambulatory lg3 22:54 Acuity: HI 5 lg3 Triage Assessment: 22:57 General: Appears in no apparent distress. comfortable, Behavior is calm, cooperative. lg3 Pain: Denies pain. EENT: No deficits noted. No signs and/or symptoms were reported regarding the EENT system. Neuro: No deficits noted. Kaplan Agitation-Sedation Scale (RASS): 0 - Alert and Calm Level of Consciousness is awake, alert, obeys commands, Oriented to person, place, time, situation. Cardiovascular: No deficits noted. Denies chest pain, shortness of breath, Capillary refill < 3 seconds Clubbing of nail beds is present JVD is absent Patient's skin is warm and dry. Respiratory: No deficits noted. Airway is patent Respiratory effort is even, unlabored, Respiratory pattern is regular, symmetrical. GI: No deficits noted. No signs and/or symptoms were reported involving the gastrointestinal system. Abdomen is round non-distended. : No deficits noted. No signs and/or symptoms were reported regarding the genitourinary system. Derm: No deficits noted. No signs and/or symptoms reported regarding the dermatologic system. Skin is intact, is healthy with good turgor, Skin is dry, Skin is normal, Skin temperature is warm. Musculoskeletal: No deficits noted. No signs and/or symptoms reported regarding the musculoskeletal system. Circulation, motion, and sensation intact. Range of motion: intact in all extremities. [employer]: 22:57 LMP 02/26/2023 lg3 Historical: - Allergies: 22:57 No Known Allergies; lg3 - Home Meds: 22:57 None [Active]; lg3 - PMHx: 22:57 None; lg3 - PSHx: 22:57 section; lg3 - Immunization history:: Adult Immunizations up to date, Client reports having NOT received the Covid vaccine. Flu vaccine is not up to date. - Social history:: Smoking status: Patient denies any tobacco usage or history of. Patient uses alcohol, occasionally. Screenin:00 [facility] ED Fall Risk Assessment (Adult) History of falling in the last 3 months, lg3 including since admission No falls in past 3 months (0 pts). Abuse screen: Denies threats or abuse. Denies injuries from another. Nutritional screening: No deficits noted. Tuberculosis screening: No symptoms or risk factors identified. Assessment: 22:59 General: see triage assessment . lg3 04/02 00:04 Reassessment: Patient appears in no apparent distress at this time. No changes from lg3 previously documented assessment. Patient and/or family updated on plan of care and expected duration. Pain level reassessed. Patient is alert, oriented x 3, equal unlabored respirations, skin warm/dry/pink. Patient denies pain at this time. Vital Signs: 04/01 22:54 BP 117 / 77; Pulse 67; Resp 15 S; Temp 98.4(O); Pulse Ox 100% on R/A; Weight 68.04 kg lg3 (R); Height 5 ft. 0 in. (R); Pain 0/10; 22:54 Body Mass Index 29.29 (68.04 kg, 152.4 cm) lg3 22:54 Pain Scale: Adult lg3 ED Course: 22:44 Patient arrived in ED. ag3 22:46 Mckay Richardson PA is PHCP. jmm 22:47 Sergo Zuluaga MD is Attending Physician. katherin 22:54 Dorothy Armenta, RN is Primary Nurse. lg3 22:57 Triage completed. lg3 22:57 Arm band placed on right wrist. lg3 23:00 Patient has correct armband on for positive identification. Bed in low position. Call lg3 light in reach. Door closed. Noise minimized. Warm blanket given. 23:00 Influenza Screen (a \T\ B) Sent. lg3 04/02 00:04 No provider procedures requiring assistance completed. Patient did not have IV access lg3 during this emergency room visit. Administered Medications: No medications were administered Medication: 00:05 VIS not applicable for this client. lg3 Outcome: 00:01 Discharge ordered by . [facility] 00:04 Discharged to home ambulatory. lg3 00:04 Condition: stable 00:04 Discharge instructions given to patient. 00:06 Patient left the ED. lg3 Signatures: Mckay Richardson PA PA [facility] Malina Quintana ag3 Dorothy Armenta, RN RN lg3
[2023-04-02 01:11] VITALS: BP 117/77; TEMP 98.4; O2SAT 100
== END 2023-04-02 00:06 | disposition home or self-care (01) ==
LOC: ER 22:40
DX: Z71.1 Person with feared health complaint in whom no diagnosis is made (principal)
CPT/HCPCS: 87804; 99283

== ENCOUNTER 2024-10-12 04:10 | Emergency (ER) | payer OTHER, SELFPAY ==
--- OUTSIDE RECORDS SUMMARY | 2024-10-12 04:17 | XMS REPORT | Continuity of Care Document ---
Author Name Unknown Address [address] [facility] [address] [place] [address] [facility] Address [address] [facility] [place] [address] Care Team Providers Care Clerk Rating Name Role Phone LORENZO HAWK Primary Care Physician VALENTINE Mckeon Attending Clinician VALENTINE Mckeon Attending Clinician PERLA Alejandre Attending Clinician Unavailable YAMILKA DE JESUS Attending Clinician Unavailable CHULA HILL Attending Clinician Unavailable ALISSA LE Attending Clinician UnaALISSA Karimi Attending Clinician UnaAlissa Karimi MD Attending Clinician + MIRIAM LEZAMA Attending Clinician Unavailable Latosha SANCHEZ Attending Clinician Unavailable Latosha Guzman Attending Clinician [phone] Emmie Borden RN Attending Clinician Unavailable Umesh Garcia DNP Attending Clinician [phone] Alissa Neely MD Attending Clinician [phone] Drake Gallardo CRNA Attending Clinician [phone] Pob, [facility] Main Attending Clinician Unavailethan Aguero, Terrence Nst Room Attending Clinician Unavailable RODRIGO MARY Attending Clinician Unavailable RODRIGO MARY Attending Clinician Unavailable Ultrasound, [facility] Attending Clinician Unavailkendal Mary MD, Rodrigo Attending Clinician [phone] Doctor Unassigned, [place] Attending Clinician U elliott Patel MD, Jorje Rivera Attending Clinician [phone] Kanu Mercado CRNA Attending Clinician [phone] Zack DICKEY, Mer Attending Clinician Unavailethan prabhakar 2, [facility] Attending Clinician Unavailable Kj Gallagher MD Attending Clinician [phone] KJ GALLAGHER Attending Clinician Unavailable PALLAVI MOLINA Attending Clinician Unavailable Stephanie WHEEL PRESS OPERATOR, Pallavi Webb Attending Clinician [phone] JUNIE HICKEY Attending Clinician Unavailable JUNIE HICKEY Attending Clinician Unavailable Junie Hickey MD Attending Clinician [phone] Rajan DICKEY, Shahab Samson Attending Clinician Unavaila TENISHA Alonso Attending Clinician Unav delia Dobbs MD, Tenisha Cannon Attending Clinician + 2, [facility] Us Room Attending Clinician Unavailab REGLA Munguia Attending Clinician Unavailable Regla Hernández Attending Clinician [phone] ERNESTO WHARTON Attending Clinician Unavaila Ernesto Maza Attending Clinician [phone] SOPHIA MERCEDES Attending Clinician Unavaila SOPHIA Emery Attending Clinician Unavaila EDSON Stauffer Attending Clinician Unavailable Edson Montanez DO Attending Clinician [phone] HILDA GÓMEZ Attending Clinician Unavailable Hilda Gómez MD Attending Clinician [phone] Nurse, [facility] Attending Clinician Unavailable Meghann BILL, Perla Attending Clinician [phone] Sergio BILL, [place] Attending Clinician [phone] PERLA ROBLES Attending Clinician Unavailethan Robles MD, Perla Magana Attending Clinician [phone] Kadie Rock MD Attending Clinician [phone] KADIE ROCK Attending Clinician Unavailable GERALD PENDLETON Attending Clinician Unavailable Keerthi GONZALEZP, Gerald B Attending Clinician [phone] Yamilka English S Attending Clinician [phone] Miguel Douglas MD Attending Clinician [phone] Nurse, [facility] Attending Clinician Un available Ultrasound, [facility] M[facility] Attending Clinician UnavailNomi Orozco MD Attending Clinician [phone] Cathleen DICKEY, Iris Samson Attending Clinician Unavailab le UNKNOWN, ATTENDING Attending Clinician Unavailab VALENTINE Hope Admitting Clinician UnaPERLA Iverson Admitting Clinician Unavailable CHULA HILL Admitting Clinician Unavailable KADIE ROCK Admitting Clinician Unavailable ALISSA LE Admitting Clinician UnaMIRIAM Nagy Admitting Clinician Unavailable KJ GALLAGHER Admitting Clinician Unavailable Kj Gallagher MD Admitting Clinician [phone] ERNESTO WHARTON Admitting Clinician Unavaila SOPHIA Emery Admitting Clinician Unavaila marissa Hill MD, [place] Admitting Clinician [phone] PERLA ROBLES Admitting Clinician UnavailKadie Ureña MD Admitting Clinician [phone] Payers Payer Name Policy Type Policy Number Effective Date Expirati on Date Source [place] [employer] [id number] 2021 00:00:00 [place] [employer] [id number] Problems Condition Name Condition Details Condition Category Status Onset Date Resolution Date Last Treatment Date Treating Clinician Comments Source S/P section S/P section Disease Active 01-11 00:00: 00 [facility] Preeclamps ia, third trimester Preeclamps ia, third trimester Disease Active 12-29 00:00: 00 [facility] Preeclamps ia in period Preeclamps ia in period Disease Active 12-29 00:00: 00 [facility] Obesity (BMI 30-39.9) Obesity (BMI 30-39.9) Disease Active 2023-1 1-20 00:00: 00 [facility] Previous section complicati ng Previous section complicati ng Disease Active 0 9-21 00:00: 00 [facility] BMI 30.0-30.9, adult BMI 30.0-30.9, adult Disease Active 0 2-13 00:00: 00 [facility] headache headache Disease Resolve d 0 4-02 00:00: 00 2024-01-19 00:00:00 2024-01-19 09:02:35 [facility] Two vessel umbilical cord in mckeon , antepartum Two vessel umbilical cord in [place]ckeon , antepartum Disease Resolve d 2023-0 1-19 00:00: 00 2024-01-19 00:00:00 2024-01-19 09:02:20 [facility] Two vessel umbilical cord in [place] , antepartum Two vessel umbilical cord in [place]cke[place] , antepartum Disease Resolve d 0 1-19 00:00: 00 2024-01-19 00:00:00 2024-01-19 09:02:20 [facility] History of pre-eclamp mel in prior , currently History of pre-eclamp mel in prior , currently Disease Resolve d 2022-0 9-21 00:00: 00 2024-01-19 00:00:00 2024-01-19 09:02:26 [facility] High-risk in third trimester High-risk in third trimester Disease Resolve d 2020-0 3-29 00:00: 00 2024-01-19 00:00:00 2024-01-19 09:02:28 [facility] uterine contractio ns in third trimester, antepartum uterine contractio ns in third trimester, antepartum Disease Resolve d 2023-0 3-14 00:00: 00 2024-01-06 00:00:00 2024-01-06 06:25:44 [facility] Galactorrh ea Galactorrh ea Disease Resolve d 2022-0 4-26 00:00: 00 2024-01-06 00:00:00 2024-01-06 06:25:26 [facility] 35 weeks gestation of 35 weeks gestation of Disease Resolve d 2020-0 3-29 00:00: 00 2024-01-06 00:00:00 2024-01-06 06:25:17 [facility] Peritonsil lar abscess Peritonsil lar abscess Disease Resolve d 2021-0 8-16 00:00: 00 2023-07-02 00:00:00 2023-07-02 12:57:57 Overview: Formattin g of this note might be different from the original. Added automatic ally from request for surgery [id number] [facility] Recurrent tonsilliti s Recurrent tonsilliti s Disease Resolve d 2021-0 8-16 00:00: 00 2023-07-02 00:00:00 2023-07-02 12:58:00 Overview: Formattin g of this note might be different from the original. Added automatic ally from request for surgery [id number] [facility] PCOS (polycysti c ovarian syndrome) PCOS (polycysti c ovarian syndrome) Disease Resolve d 2022-0 6-08 00:00: 00 2023-06-04 00:00:00 2023-06-04 13:37:17 [facility] Pain pelvic Pain pelvic Disease Resolve d 2022-0 4-26 00:00: 00 2023-06-04 00:00:00 2023-06-04 13:36:51 [facility] Possible exposure to STD Possible exposure to STD Disease Resolve d 2022-0 2-13 00:00: 00 2023-06-04 00:00:00 2023-06-04 13:37:01 [facility] Abnormal uterine bleeding Abnormal uterine bleeding Disease Resolve d 2022-0 2-13 00:00: 00 2023-06-04 00:00:00 2023-06-04 13:36:46 [facility] Late menses Late menses Disease Resolve d 2022-0 2-13 00:00: 00 2023-06-04 00:00:00 2023-06-04 13:36:49 [facility] control counseling control counseling Disease Resolve d 2021-1 2-08 00:00: 00 2023-06-04 00:00:00 2023-06-04 13:36:59 [facility] Menorrhagi a with irregular cycle Menorrhagi a with irregular cycle Disease Resolve d 2021- 2-08 00:00: 00 2023-06-04 00:00:00 2023-06-04 13:36:54 [facility] Abnormal maternal glucose tolerance, antepartum Abnormal maternal glucose tolerance, antepartum Disease Resolve d 2020-0 9-07 00:00: 00 2023-06-04 00:00:00 2023-06-04 13:37:07 [facility] Acute low back pain without sciatica, unspecifie d back pain laterality Acute low back pain without sciatica, unspecifie d back pain laterality Disease Resolve d 0 5-04 00:00: 00 2023-06-04 00:00:00 2023-06-04 13:37:11 [facility] Liveborn infant, of [place] , born in hospital by delivery Liveborn infant, of [place] , born in hospital by delivery Disease Resolve d 1 1-05 00:00: 00 2021-10-31 00:00:00 2021-10-31 14:11:58 [facility] Severe preeclamps ia, third trimester Severe preeclamps ia, third trimester Disease Resolve d 1 1-04 00:00: 00 2021-10-31 00:00:00 2021-10-31 14:12:00 [facility] Anemia of mother in , antepartum Anemia of mother in , antepartum Disease Resolve d 2020-0 9-07 00:00: 00 2021-10-31 00:00:00 2021-10-31 14:09:18 [facility] Nausea Nausea Disease Resolve d 2020-0 4-14 00:00: 00 2021-10-31 00:00:00 2021-10-31 14:09:21 [facility] Dysuria Dysuria Disease Resolve d 0 7-01 00:00: 00 2021-07-22 00:00:00 2021-07-22 14:03:37 [facility] Encounter for supervisio n of normal first in second trimester Encounter for supervisio n of normal first in second trimester Disease Resolve d 7 00:00: 00 2021-06-18 00:00:00 2021-06-18 17:44:58 [facility] Allergies, Adverse Reactions, Alerts Allergy Name Allergy Type Status Severity Reaction(s) Onset Date Inactive Date Treating Clinician Comments Source NO KNOWN ALLERGIE S Drug Class Active [facility] Family History Family Member Diagnosis Comments Start Date Stop Date Sourc e Natural father Unive [facility] Natural mother Unive [facility] Social History Social Habit Start Date Stop Date Quantity Comments Source ASSERTION 2023-05-06 00:00:00 [facility] Gender identity [facility] Alcoholic beverage intake 2024-04-22 00:00:00 2024-04-22 00:00:00 Ex-drinker (finding) [facility] Alcohol intake 2024-02-09 00:00:00 2024-02-09 00:00:00 Ex-drinker (finding) [facility] History of Social function 2023-05-21 00:00:00 2023-05-21 00:00:00 [facility] Exposure to SARS-CoV-2 (event) 2023-01-18 00:00:00 2023-01-28 15:55:00 Not sure [facility] Tobacco use and exposure 2022-09-18 00:00:00 2022-09-18 00:00:00 Smokeless tobacco non-user [facility] Sex assigned at 2005 00:00:00 2005 00:00:00 [facility] Smoking Status Start Date Stop Date Source Never smoked tobacco [facility] Medications Ordered Medication Name Filled Medication Name Start Date Stop Date Current Medication? Ordering Clinician Indication Dosage Frequency Signature (SIG) Comments Components Source ondansetron (ZOFRAN (PF)) injection 4 mg 2023-10 13:30: 00 09-13 13:36 :00 No 4mg 4 mg, Slow IV Push, ONCE, 1 dose, On Thu09/13/24 at 0730, Administer over 2-5 Minutes, 2 mL [facility] maalox/diph enhydrAMINE :lidocaine2 %viscous 1:1:1: suspension (COMPOUNDED ) 2023-10 13:30: 00 09-13 13:33 :00 No 15mL 15 mL, Oral, ONCE, 1 dose, On Thu09/13/24 at 0730, Routine [facility] omeprazole 40 mg capsule 2023-10 00:00: 00 10-14 05:59 :00 Yes [id number] 40mg Take 1 capsule by mouth in the morning for 30 days. [facility] cefTRIAXone (ROCEPHIN) injection 1,000 mg 04-20 19:00: 00 Yes 1000mg 1,000 mg, Intramuscu lar, Q24H, First dose on Thu04/20/24 at 1400, Until Discontinu ed, SAVITA, Reason for Anti-Infec tive: Documented Infection, Documented Infection Site: HEENT, Duration of Therapy: Once (ED) [facility] ibuprofen (IBU) tablet 600 mg 04-20 17:15: 00 04-20 16:35 :00 No 600mg 600 mg, Oral, ONCE, 1 dose, On Thu04/20/24 at 1215, SAVITA [facility] acetaminoph en (TYLENOL) tablet 650 mg 04-20 17:15: 00 04-20 16:34 :00 No 650mg 650 mg, Oral, ONCE, 1 dose, On Thu04/20/24 at 1215, SAVITA [facility] famotidine (PEPCID AC) tablet 40 mg 04-20 16:30: 00 04-20 16:35 :00 No 40mg 40 mg, Oral, ONCE, 1 dose, On Thu04/20/24 at 1130, SAVITA [facility] amoxicillin -clavulanat e 875-125 mg per tablet 04-20 00:00: 00 Yes [id number] 1{tbl} Take 1 tablet by mouth every 12 (twelve) hours. [facility] ibuprofen 800 mg tablet 04-20 00:00: 00 Yes [id number] 800mg Take 1 tablet by mouth every 6 (six) hours as needed for Pain (scale 4-6) or Temp > 38.5 C. [facility] bromphenira mine-pseudo ephedrine-D M (BROMFED DM) 2-30-10 mg/5 mL syrup 04-20 00:00: 00 Yes [id number] 5mL Take 5 mL by mouth 4 (four) times daily as needed for Congestion /Allergies . [facility] SERTraline (ZOLOFT) 100 mg tablet 03-03 00:00: 00 Yes 100mg Take 1 tablet by mouth in the morning. [facility] levonorgest reL (MIRENA) IUD 1 Device 02-17 20:45: 00 02-17 19:52 :00 No [id number] 1{devic e} 1 Device, Intrauteri ne, ONCE, 1 dose, On Yesenia 02/18/24 at 1545, Routine [facility] amoxicillin (TRIMOX) capsule 500 mg 01-27 04:30: 00 01-27 04:25 :00 No 500mg 500 mg, Oral, ONCE, 1 dose, On Thu01/27/24 at 2330, SAVITA
Re ason for Anti-Infec tive: Documented Infection< br>Documen dickson Infection Site: HEENT
D uration of Therapy: Once (ED) [facility] amoxicillin 500 mg capsule 01-26 00:00: 00 02-06 04:59 :00 No [id number] 500mg Take 1 capsule by mouth in the morning and 1 capsule at noon and 1 capsule in the evening. Do all this for 10 days. [facility] cephALEXin 250 mg capsule 01-18 00:00: 00 01-26 04:59 :00 No [id number] 250mg Take 1 capsule by mouth every 6 (six) hours for 7 days. [facility] magnesium sulfate in water for injection 20 gram/500 mL (4 %) IV infusion 01-11 23:30: 00 Yes 2g/h 2 g/hr (50 mL/hr), IV Infusion, CONTINUOUS , Starting on Thu01/12/24 at 1830, [facility] mL 01-11 23:00: 00 Yes 1000mL at 75 mL/hr, IV Infusion, CONTINUOUS , Starting on Thu01/12/24 at 1800, Until [facility]continu ed, [facility] ibup[facility] (IBU) tablet 600 mg 01-11 22:56: 24 Yes 600mg 600 mg, Oral, Q6HPRN, Starting on Thu01/12/24 at 1756, Until Discontinu ed, Routine, Pain (scale 1-3), Pain (scale 4-6) [facility] butalbital- acetaminoph en-caff (ESGIC) 50-325-40 mg tablet 1 tablet 01-11 22:54: 07 Yes 1{tbl} 1 tablet, Oral, Q4HPRN, Starting on Thu01/12/24 at 1754, Until Discontinu ed, Routine, Pain (scale 7-10), headache if unrelieved by Ibuprofen [facility] NIFEdipine (ADALAT) capsule 10 mg 01-11 22:53: 29 Yes 10mg [Order 1 Start] Name: NIFEdipine (ADALAT) capsule 10 mg Signed Summary: 10 mg, Oral, PRN - SEE INSTRUCTIO NS, 1 dose, Starting on Thu01/12/24 at 1753, Until Discontinu ed, Routine, If severe BP persists for 15 min or more, administer Nifedipine capsules [Order 1 End] [Order 2 Start] Name: NIFEdipine (ADALAT) capsule 20 mg Signed Summary: 20 mg, Oral, PRN - SEE INSTRUCTIO NS, 2 doses, Starting on Thu01/12/24 at 1753, Until Discontinu ed, Routine, If either BP threshold is still exceeded, administer Nifedipine capsules [Order 2 End] [Order 3 Start] Name: labetaloL (NORMODYNE ) injection 20 mg Signed Summary: 20 mg, Slow IV Push, PRN - SEE INSTRUCTIO NS, 1 dose, Starting on Thu01/12/24 at 1753, Until Discontinu ed, Routine, If either BP threshold is still exceeded, administer Labetalol 40 mg slow [Order 3 End] [facility] calcium gluconate 100 mg/mL (10%) injection 1,000 mg 01-11 22:51: 54 Yes 1000mg 1,000 mg, Slow IV Push, PRN - SEE INSTRUCTIO NS, Starting on Thu01/12/24 at 1751, Until Discontinu ed, Routine, magnesium toxicity [facility] magnesium sulfate 500 mg/mL (50 %) injection 32.48 mEq 01-11 22:51: 54 Yes 4g 32.48 mEq (4 g), Slow IV Push, PRN - SEE INSTRUCTIO NS, Starting on Thu01/12/24 at 1751, Until Discontinu ed, Routine, For seizure activity (patient not on magnesium sulfate) [facility] magnesium sulfate 500 mg/mL (50 %) injection 16.24 mEq 01-11 22:51: 54 Yes 2g 16.24 mEq (2 g), Slow IV Push, PRN - SEE INSTRUCTIO NS, 2 doses, Starting on Thu01/12/24 at 1751, Until Discontinu ed, Routine, For seizure activity (patient already on magnesium sulfate) [facility] no115/iron/ folic acid ( 19 ORAL) 01-07 08:27: 18 01-07 00:00 :00 No Take by mouth. [facility] aspirin 81 mg Cap 01-07 08:27: 18 01-07 00:00 :00 No Take by mouth. [facility] vitamin w/FA tablet 01-07 00:00: 00 01-13 00:00 :00 No [id number] 1{tbl} Take 1 tablet by mouth in the morning. [facility] docusate 100 mg capsule 01-07 00:00: 00 01-13 00:00 :00 No [id number] 200mg Take 2 capsules by mouth once daily as needed for Constipati on. [facility] ferrous sulfate 325 mg (65 mg iron) tablet 01-07 00:00: 00 01-13 00:00 :00 No [id number] 325mg Take 1 tablet by mouth in the morning. [facility] ibuprofen 600 mg tablet 01-07 00:00: 00 01-13 00:00 :00 No [id number] 600mg Take 1 tablet by mouth every 6 (six) hours as needed (Pain). Take with food or milk. [facility] HYDROcodone -acetaminop hen 5-325 mg tablet 01-07 00:00: 00 01-13 00:00 :00 No [id number] 1{tbl} Take 1 tablet by mouth every 6 (six) hours as needed (Pain scale above 4) for up to 7 days. Do not exceed 3 grams of acetaminop hen in 24 hours. Indication s: acute pain [facility] acetaminoph en (TYLENOL) tablet 1,000 mg 01-06 03:00: 00 Yes 1000mg 1,000 mg, Oral, Q8H, First dose (after last modificati on) on Thu01/06/24 at 2200, Until Discontinu ed, Routine [facility] acetaminoph en (OFIRMEV) IV piggyback 1,000 mg 01-05 19:00: 00 01-05 19:47 :00 No 1000mg 1,000 mg, IV Piggyback, at 400 mL/hr Administer over 15 Minutes, ONCE, 1 dose, On Thu01/06/24 at 1415, Routine, PACU
Is the patient strict NPO and unable to tolerate oral medication s? Yes [facility] ibuprofen (IBU) tablet 800 mg 01-05 18:00: 00 Yes 800mg 800 mg, Oral, Q8HA1, First dose on Thu01/06/24 at 1300, Until Discontinu ed, Routine [facility] lactated ringers IV infusion 1,000 mL 01-05 14:45: 00 01-05 17:58 :00 No 1000mL at 125 mL/hr, 1,000 mL, IV Infusion, ONCE, 1 dose, On Thu01/06/24 at 0945, Routine [facility] rho(D) immune globulin (RHOGAM) syringe 300 mcg 01-05 13:58: 27 Yes 300ug 300 mcg, Intramuscu lar, ONCE, For 1 dose, Conditiona l, Routine [facility] oxyCODONE immediate release tablet 5 mg 01-05 13:57: 56 Yes 5mg 5 mg, Oral, Q6HPRN, Starting on Thu01/06/24 at 0857, Until Discontinu ed, Routine, Pain (scale 7-10)
F aculty member approving Restricted medication : WOODY IS, VALENTINE [facility] diphenhydrA MINE (BENADRYL) injection 25 mg 01-05 13:56: 58 Yes 25mg 25 mg, Slow IV Push, Q6HPRN, Starting on Thu01/06/24 at 0856, Until Discontinu ed, Routine, Itching [facility] diphenhydrA MINE (BENADRYL) tablet 25 mg 01-05 13:56: 58 Yes 25mg 25 mg, Oral, Q6HPRN, Starting on Thu01/06/24 at 0856, Until Discontinu ed, Routine, Sleep, Itching [facility] ondansetron (ZOFRAN (PF)) injection 4 mg 01-05 13:56: 58 Yes 4mg 4 mg, Slow IV Push, Q8HPRN, Starting on Thu01/06/24 at 0856, Until Discontinu ed, Routine, Nausea and Vomiting (N/V) [facility] bisacodyL (DULCOLAX) suppository 10 mg 01-05 13:56: 58 Yes 10mg 10 mg, Rectal, QDAILYPRN, Starting on Thu01/06/24 at 0856, Until Discontinu ed, Routine, Constipati on [facility] simethicone (GAS RELIEF (SIMETHICON E)) chewable tablet 160 mg 01-05 13:56: 58 Yes 160mg 160 mg, Oral, PC+HSPRN, Starting on Thu01/06/24 at 0856, Until Discontinu ed, Routine, Gas [facility] docusate (COLACE) capsule 200 mg 01-05 13:56: 58 Yes 200mg 200 mg, Oral, QDAILYPRN, Starting on Thu01/06/24 at 0856, Until Discontinu ed, Routine, Constipati on [facility] magnesium hydroxide (MILK OF MAGNESIA) 400 mg/5 mL suspension 30 mL 01-05 13:56: 58 Yes 30mL 30 mL, Oral, QDAILYPRN, Starting on Thu01/06/24 at 0856, Until Discontinu ed, Routine, Constipati on [facility] lactated ringers IV infusion 1,000 mL 01-05 13:56: 58 Yes 1000mL at 125 mL/hr, 1,000 mL, IV Infusion, PRN, 1 dose, Starting on Thu01/06/24 at 0856, Until Discontinu ed, Routine [facility] sodium citrate-cit kathleen acid (BICITRA) 500-334 mg/5 mL solution 30 mL 01-05 11:02: 35 01-05 12:43 :00 No 30mL 30 mL, Oral, PRE-PROCED URE ONCE, 1 dose, Starting on Thu01/06/24 at 0602, Until Discontinu ed, Routine, Surgery/Pr ocedure [facility] D5W-LR IV infusion 1,000 mL 01-05 11:02: 35 01-05 13:58 :26 No 1000mL at 1-125 mL/hr, IV Infusion, TITRATE, Starting on Thu01/06/24 at 0602, Until Thu01/06/24 at 0858, Routine [facility] no115/iron/ folic acid ( 19 ORAL) 01-05 05:59: 33 Yes Take by mouth. [facility] aspirin 81 mg Cap 01-05 05:59: 33 Yes Take by mouth. [facility] aspirin 81 mg Cap 01-04 10:04: 33 Yes Take by mouth. [facility] betamethaso ne acet,sod phos (CELESTONE SOLUSPAN) 6 mg/mL injection 12 mg 12-30 12:45: 00 12-30 13:17 :00 No 12mg 12 mg, Intramuscu lar, ONCE, 1 dose, On Thu12/31/23 at 0800, Routine [facility] no115/iron/ folic acid ( 19 ORAL) 12-30 10:04: 55 Yes Take by mouth. [facility] betamethaso ne acet,sod phos (CELESTONE SOLUSPAN) 6 mg/mL injection 12 mg 12-29 12:45: 00 12-31 12:44 :00 No 12mg 12 mg, Intramuscu lar, Q24H, 2 doses, First dose on Thu12/30/23 at 0745, Last dose on Thu12/31/23 at 0745, Routine [facility] miSOPROStoL (CYTOTEC) tablet 200 mcg 12-29 12:38: 16 Yes 200ug 200 mcg, Rectal, PRN, 5 doses, Starting on Thu12/30/23 at 0738, Until Discontinu ed, Routine, For PPH [facility] carboprost (HEMABATE) injection 250 mcg 12-29 12:38: 16 Yes 250ug 250 mcg, Intramuscu lar, Q2HPRN, 8 doses, Starting on Thu12/30/23 at 0738, Until Discontinu ed, Routine, PPH [facility] methylergon ovine (METHERGINE ) injection 0.2 mg 12-29 12:38: 16 Yes .2mg 0.2 mg, Intramuscu lar, Q4HPRN, 1 dose, Starting on Thu12/30/23 at 0738, Until Discontinu ed, Routine, PPH [facility] lidocaine 1% (XYLOCAINE) 10 mg/mL (1 %) injection 50 mL 12-29 12:38: 16 Yes 50mL 50 mL, Infiltrati on, PRN - SEE INSTRUCTIO NS, Starting on Thu12/30/23 at 0738, Until Discontinu ed, Routine, Local anesthesia , For laceration repair only as a local anesthetic as indicated. [facility] lidocaine 1% (PF) (XYLOCAINE) injection 0.3 mL 12-29 12:38: 16 Yes .3mL 0.3 mL, Infiltrati on, PRN - SEE INSTRUCTIO NS, Starting on Thu12/30/23 at 07, Until Discontinu ed, Routine, Local anesthesia , For IV line placement only as a local anesthetic . [facility] lactated ringers IV infusion 500 mL 12-29 12:38: 16 Yes 500mL at 999 mL/hr, 500 mL, IV Infusion, PRN - SEE INSTRUCTIO NS, Starting on Thu12/30/23 at 07, Until Discontinu ed, Routine [facility] D5W-LR IV infusion 1,000 mL 12-29 12:38: 16 Yes 1000mL at 1-125 mL/hr, IV Infusion, TITRATE, Starting on Thu12/30/23 at 07, Until Discontinu ed, Routine [facility] sodium citrate-cit kathleen acid (BICITRA) 500-334 mg/5 mL solution 30 mL 12-29 12:38: 16 12-30 01:50 :00 No 30mL 30 mL, Oral, PRE-PROCED URE ONCE, 1 dose, Starting on Thu12/30/23 at 0738, Until Discontinu ed, Routine, Surgery/Pr [facility]cedure [facility] [facility] IV infusion 1,000 mL 12-29 09:00: 00 12-29 08:38 :25 No 1000mL at 999 mL/hr, 1,000 mL, IV Infusion, ONCE, 1 dose, On Thu12/30/23 at 0400, STAT [facility] no115/iron/ folic acid ( 19 ORAL) 12-29 07:40: 03 Yes Take by mouth. [facility] no115/iron/ folic acid ( 19 ORAL) 12-23 08:32: 00 Yes Take by mouth. [facility] terbutaline (BRETHINE) injection 0.25 mg 12-23 04:30: 00 12-23 03:45 :00 No .25mg 0.25 mg, Subcutaneo us, ONCE, 1 dose, On Thu12/23/23 at 2330, Routine [facility] D5W-LR IV infusion 1,000 mL 12-23 03:15: 00 Yes 1000mL at 125 mL/hr, IV Infusion, CONTINUOUS , Starting on Thu12/23/23 at 2215, Until Discontinu ed, Routine [facility] NaCl 0.9% (NS) bolus infusion 1,000 mL 12-23 02:09: 00 12-23 02:30 :00 No 1000mL at 999 mL/hr, 1,000 mL, IV Infusion, ONCE, 1 dose, On Thu12/23/23 at 2115, STAT [facility] metroNIDAZO LE (FLAGYL) tablet 500 mg 12-23 02:07: 00 12-24 00:59 :00 No 500mg 500 mg, Oral, Q12H, 2 doses, First dose on Thu12/23/23 at 2115, Last dose on Yesenia 12/24/23 at 0800, Routine
Reason for Anti-Infec tive: Documented Infection< br>Documen dickson Infection Site: Urine
D uration of Therapy: Once (ED) [facility] fluconazole (DIFLUCAN) tablet 200 mg 12-23 02:05: 00 12-23 02:57 :00 No 200mg 200 mg, Oral, DAILY, 1 dose, First dose on Thu12/23/23 at 2115, SAVITA
Re ason for Anti-Infec tive: Documented Infection< br>Documen dickson Infection Site: Urine
D uration of Therapy: Once (ED) [facility] ferrous sulfate 325 mg (65 mg iron) tablet 12-23 00:00: 00 01-07 00:00 :00 No [id number] 325mg Take 1 tablet by mouth in the morning and 1 tablet in the evening. [facility] metroNIDAZO LE 500 mg tablet 12-23 00:00: 00 12-30 00:00 :00 No [id number] 500mg Take 1 tablet by mouth every 12 (twelve) hours for 7 days. [facility] metoclopram sarah HCl (REGLAN) 10 mg tablet 12-23 00:00: 00 12-30 00:00 :00 No [id number] 10mg Take 1 tablet by mouth every 6 (six) hours as needed for Nausea and Vomiting (N/V) or Gastroesop hageal reflux. [facility] famotidine 20 mg tablet 12-23 00:00: 00 12-30 00:00 :00 No [id number] 20mg Take 1 tablet by mouth in the morning and 1 tablet in the evening. [facility] NaCl 0.9% (NS) bolus infusion 1,000 mL 12-12 03:00: 00 12-12 03:42 :00 No 1000mL at 999 mL/hr, 1,000 mL, IV Infusion, ONCE, 1 dose, On 12/12/23 at 2100, SAVITA [facility] ondansetron (ZOFRAN-ODT ) disintegrat ing tablet 4 mg 12-12 02:15: 00 12-12 02:33 :00 No 4mg 4 mg, Oral, ONCE, 1 dose, On 12/12/23 at 2015, Routine [facility] acetaminoph en (TYLENOL) tablet 1,000 mg 12-12 02:15: 00 12-12 02:33 :00 No 1000mg 1,000 mg, Oral, ONCE NOW, 1 dose, On 12/12/23 at 2015, Routine [facility] fluticasone propionate 50 mcg/actuati on nasal spray 12-11 00:00: 00 12-15 05:59 :00 No [id number] 2{spray } Use 2 Sprays in each nostril in the morning for 3 days. [facility] no115/iron/ folic acid ( 19 ORAL) 2022-10 19:42: 21 Yes Take by mouth. [facility] NaCl 0.9% (NS) IV infusion 1,000 mL 2022-10 04:22: 00 08-05 05:54 :00 No 1000mL at 999 mL/hr, Intravenou s, ONCE, 1 dose, [facility]04[facility]23 [facility] 2330[facility] (NS[facility] 1,000 mL 2022-10 02:45: 00 08-05 05:19 :00 No 1000mL at 999 mL/hr, Intravenou s, ONCE, 1 dose, On Thu08/04/23 at 2145, Routine [facility] proMETHazin e (PHENERGAN) 12.5 mg in NaCl 0.9% (NS) 50 mL IV piggyback 2022-10 01:45: 00 08-05 03:10 :00 No 12.5mg 12.5 mg, IV Piggyback, ONCE, 1 dose, On Thu08/04/23 at 2045, [facility] sodium chloride (NS) injection 5 mL 2022-10 01:32: 32 Yes 5mL 5 mL, Intravenou s, PRN, Starting on Thu08/04/23 at 2031, Until Discontinu ed, Routine, IV line flushing [facility] proMETHazin e 25 mg tablet 2022-10 00:00: 00 12-23 00:00 :00 No [id number] 25mg Take 1 tablet by mouth every 8 (eight) hours as needed for Nausea and Vomiting (N/V). [facility] acetaminoph en (TYLENOL) tablet 325 mg 2022-10 21:00: 00 07-13 20:26 :00 No [id number] 325mg [facility] ampicillin 500 mg capsule 2022-10 0 00:00: 00 12-23 00:00 :00 No [id number] 500mg Take 1 capsule by mouth every 6 (six) hours. [facility] ondansetron (ZOFRAN) 4 mg tablet 9-07 00:00: 00 12-23 00:00 :00 No 4mg Take 1 tablet by mouth every 6 (six) hours as needed for Nausea and Vomiting (N/V) (Every 6 hours as needed). [facility] doxylamine- pyridoxine, vit B6, (DICLEGIS) 10-10 mg per tablet 8-31 00:00: 00 12-30 00:00 :00 No 1{tbl} Take 1 tablet by mouth at bedtime. [facility] cefdinir 300 mg capsule 814 00:00: 00 06-02 04:59 :00 No [id number] 300mg Take 1 capsule by mouth every 12 (twelve) hours for 7 days. [facility] no115/iron/ folic acid ( 19 ORAL) 8 10:18: 05 Yes Take by mouth. [facility] norgestimat e-ethinyl estradioL (ORTHO TRI-CYCLEN, 28,) 0.18/0.215/ 0.25 mg-35 mcg (28) tablet 08 00:00: 00 05-21 00:00 :00 No [id number] 1{tbl} Take 1 tablet by mouth in the morning. [facility] naproxen sodium 550 mg tablet 14 00:00: 00 05-21 00:00 :00 No [id number] 9100 550mg Take 1 tablet by mouth in the morning and 1 tablet in the evening. Take with meals. [facility] methylPREDN ISolone 4 mg tablets 14 00:00: 00 05-21 00:00 :00 No [id number] 9100 Take by mouth SEE-INSTRU CTIONS. follow package directions [facility] methocarbam oL 500 mg tablet 414 00:00: 00 01-29 04:59 :00 No [id number] 9100 500mg Take 1 tablet by mouth in the morning and 1 tablet at noon and 1 tablet in the evening. Do all this for 5 days. [facility] predniSONE 20 mg tablet 2021-10 2- 00:00: 00 05-21 00:00 :00 No [id number] 60mg Take 3 tablets by mouth every morning. [facility] amoxicillin -clavulanat e 875-125 mg per tablet 2021-10 2- 00:00: 00 05-21 00:00 :00 No [id number] 1{tbl} Take 1 tablet by mouth every 12 (twelve) hours. [facility] miSOPROStoL 200 mcg tablet 2021-10 2- 00:00: 00 11-24 00:00 :00 No Take one tablet the night before the procedure and one tablet the morning of the procedure [facility] ergocalcife rol, vitamin d2, 1,250 mcg (50,000 unit) capsule 2021-10 0-04 00:00: 00 05-21 00:00 :00 No [facility] methylPREDN ISolone 4 mg tablets - 00:00: 00 09-18 00:00 :00 No [id number] Take by mouth SEE-INSTRU CTIONS. follow package directions [facility] amoxicillin -clavulanat e (AUGMENTIN) 875-125 mg per tablet 05-26 00:00: 00 06-10 04:59 :00 No [id number] 1{tbl} Take 1 tablet by mouth in the morning and 1 tablet in the evening. Do all this for 14 days. [facility] methylPREDN ISolone 4 mg tablets 05-09 00:00: 00 09-18 00:00 :00 No [id number] Take by mouth SEE-INSTRU CTIONS. follow package directions [facility] ondansetron 4 mg tablet 04-29 00:00: 00 09-18 00:00 :00 No [id number] 1 or 2 tablets every 6 hours as needed for nausea [facility] ibuprofen 600 mg tablet 04-23 00:00: 00 2023- 08-10 00:00 :00 No [id number] 600mg Take 1 tablet by mouth every 6 (six) hours as needed for Pain (scale 4-6). [facility] levonorgest rel-ethinyl estradiol 0.1-20 mg-mcg per tablet - 00:00: 00 09-18 00:00 :00 No [id number] 1{tbl} Take 1 tablet by mouth daily. [facility] vit w/iron fumarate and FA ( VITAMIN WITH MINERALS) tablet 01-07 00:00: 00 09-18 00:00 :00 No [id number] 1{tbl} Take 1 tablet by mouth daily. [facility] Immunizations Ordered Immunization Name Filled Immunization Name Date Status Comments Source TDAP 2023-10-30 00:00:00 Completed [facility] TDAP 2021-06-06 00:00:00 Completed [facility] TDAP 2021-06-06 00:00:00 Completed [facility] TDAP 2021-06-06 00:00:00 Completed [facility] TDAP 2021-06-06 00:00:00 Completed [facility] TDAP 2021-06-06 00:00:00 Completed [facility] TDAP 2021-06-06 00:00:00 Completed [facility] TDAP 2021-06-06 00:00:00 Completed [facility] TDAP 2021-06-06 00:00:00 Completed [facility] TDAP 2021-06-06 00:00:00 Completed [facility] TDAP 2021-06-06 00:00:00 Completed [facility] TDAP 2021-06-06 00:00:00 Completed [facility] TDAP 2021-06-06 00:00:00 Completed [facility] TDAP 2021-06-06 00:00:00 Completed [facility] TDAP 2021-06-06 00:00:00 Completed [facility] TDAP 2021-06-06 00:00:00 Completed [facility] TDAP 2021-06-06 00:00:00 Completed [facility] TDAP 2021-06-06 00:00:00 Completed [facility] TDAP 2021-06-06 00:00:00 Completed [facility] TDAP 2021-06-06 00:00:00 Completed [facility] TDAP 2021-06-06 00:00:00 Completed [facility] TDAP 2021-06-06 00:00:00 Completed [facility] TDAP 2021-06-06 00:00:00 Completed [facility] TDAP 2021-06-06 00:00:00 Completed [facility] TDAP 2021-06-06 00:00:00 Completed [facility] TDAP 2021-06-06 00:00:00 Completed [facility] TDAP 2021-06-06 00:00:00 Completed [facility] TDAP 2021-06-06 00:00:00 Completed [facility] TDAP 2021-06-06 00:00:00 Completed [facility] TDAP Unknown Completed [facility] TDAP Unknown Completed [facility] TDAP Unknown Completed [facility] TDAP Unknown Completed [facility] TDAP Unknown Completed [facility] TDAP Unknown Completed [facility] TDAP Unknown Completed [facility] TDAP Unknown Completed [facility] TDAP Unknown Completed [facility] TDAP Unknown Completed [facility] TDAP Unknown Completed [facility] TDAP Unknown Completed [facility] TDAP Unknown Completed [facility] TDAP Unknown Completed [facility] TDAP Unknown Completed [facility] TDAP Unknown Completed [facility] TDAP Unknown Completed [facility] TDAP Unknown Completed [facility] TDAP Unknown Completed [facility] TDAP Unknown Completed [facility] TDAP Unknown Completed [facility] TDAP Unknown Completed [facility] TDAP Unknown Completed [facility] TDAP Unknown Completed [facility] TDAP Unknown Completed [facility] TDAP Unknown Completed [facility] TDAP Unknown Completed [facility] TDAP Unknown Completed [facility] TDAP Unknown Completed [facility] TDAP Unknown Completed [facility] TDAP Unknown Completed [facility] TDAP Unknown Completed [facility] TDAP Unknown Completed [facility] TDAP Unknown Completed [facility] TDAP Unknown Completed [facility] TDAP Unknown Completed [facility] TDAP Unknown Completed [facility] TDAP Unknown Completed [facility] TDAP Unknown Completed [facility] TDAP Unknown Completed [facility] TDAP Unknown Completed [facility] TDAP Unknown Completed [facility] TDAP Unknown Completed [facility] TDAP Unknown Completed [facility] TDAP Unknown Completed [facility] TDAP Unknown Completed [facility] TDAP Unknown Completed [facility] TDAP Unknown Completed [facility] TDAP Unknown Completed [facility] TDAP Unknown Completed [facility] TDAP Unknown Completed [facility] TDAP Unknown Completed [facility] TDAP Unknown Completed [facility] TDAP Unknown Completed [facility] TDAP Unknown Completed [facility] TDAP Unknown Completed [facility] TDAP Unknown Completed [facility] TDAP Unknown Completed [facility] Vital Signs Vital Name Observation Time Observation Value Comments S ource Systolic blood pressure 2024-09-13 16:00:00 102 mm[Hg] [facility] Diastolic blood pressure 2024-09-13 16:00:00 71 mm[Hg] [facility] Heart rate 2024-09-13 16:00:00 67 /min [facility] Respiratory rate 2024-09-13 16:00:00 14 /min [facility] Oxygen saturation in Arterial blood by Pulse oximetry 2024-09-13 16:00:00 97 /min [facility] Body temperature 2024-09-13 12:41:00 36.44 Nisha [facility] Body height 2024-09-13 12:41:[address] [facility] Body weight 2024-09-13 12:41:[address] [facility] BMI 2024-09-13 12:41:00 29.29 kg/m2 [facility] Systolic blood pressure 2024-04-20 19:14:00 121 mm[Hg] [facility] Diastolic blood pressure 2024-04-20 19:14:00 88 mm[Hg] [facility] Heart rate 2024-04-20 19:14:00 98 /min [facility] Respiratory rate 2024-04-20 19:14:00 16 /min [facility] Oxygen saturation in Arterial blood by Pulse oximetry 2024-04-20 19:14:00 99 /min [facility] Body temperature 2024-04-20 16:17:00 37.28 Nisha [facility] Body height 2024-04-20 16:17:00 152.4 cm [facility] Body weight 2024-04-20 16:17:[address] [facility] BMI 2024-04-20 16:17:00 32.22 kg/m2 [facility] Systolic blood pressure 2024-02-18 19:51:00 113 mm[Hg] [facility] Diastolic blood pressure 2024-02-18 19:51:00 79 mm[Hg] [facility] Heart rate 2024-02-18 19:51:00 91 /min [facility] Respiratory rate 2024-02-18 19:51:00 18 /min [facility] Body height 2024-02-18 19:51:00 152.4 cm [facility] Body weight 2024-02-18 19:51:[address] [facility] BMI 2024-02-18 19:51:00 31.05 kg/m2 [facility] Systolic blood pressure 2024-02-09 17:51:00 121 mm[Hg] [facility] Diastolic blood pressure 2024-02-09 17:51:00 86 mm[Hg] [facility] Heart rate 2024-02-09 17:51:00 94 /min [facility] Body temperature 2024-02-09 17:51:00 36.67 Nisha [facility] Respiratory rate 2024-02-09 17:51:00 16 /min [facility] Body height 2024-02-09 17:51:00 152.4 cm [facility] Body weight 2024-02-09 17:51:00 72.712 kg [facility] BMI 2024-02-09 17:51:00 31.31 kg/m2 [facility] Oxygen saturation in Arterial blood by Pulse oximetry 2024-02-09 17:51:00 98 /min [facility] Systolic blood pressure 2024-01-28 03:24:00 118 mm[Hg] [facility] Diastolic blood pressure 2024-01-28 03:24:00 86 mm[Hg] [facility] Heart rate 2024-01-28 03:24:00 92 /min [facility] Body temperature 2024-01-28 03:24:00 37 Nisha [facility] Respiratory rate 2024-01-28 03:24:00 18 /min [facility] Body height 2024-01-28 03:24:00 152.4 cm [facility] Body weight 2024-01-28 03:24:[address] [facility] BMI 2024-01-28 03:24:00 29.69 kg/m2 [facility] Oxygen saturation in Arterial blood by Pulse oximetry 2024-01-28 03:24:00 100 /min [facility] Systolic blood pressure 2024-01-19 13:38:00 118 mm[Hg] [facility] Diastolic blood pressure 2024-01-19 13:38:00 77 mm[Hg] [facility] Heart rate 2024-01-19 13:38:00 75 /min [facility] Body temperature 2024-01-19 13:38:00 36.61 Nisha [facility] Respiratory rate 2024-01-19 13:38:00 16 /min [facility] Body height 2024-01-19 13:38:00 152.4 cm [facility] Body weight 2024-01-19 13:38:00 70.988 kg [facility] BMI 2024-01-19 13:38:00 30.56 kg/m2 [facility] Oxygen saturation in Arterial blood by Pulse oximetry 2024-01-19 13:38:00 98 /min [facility] Systolic blood pressure 2024-01-14 13:08:00 132 mm[Hg] [facility] Diastolic blood pressure 2024-01-14 13:08:00 79 mm[Hg] [facility] Heart rate 2024-01-14 12:12:00 76 /min [facility] Body temperature 2024-01-14 12:12:00 36.94 Nisha [facility] Respiratory rate 2024-01-14 12:12:00 16 /min [facility] Oxygen saturation in Arterial blood by Pulse oximetry 2024-01-14 12:12:00 100 /min [facility] Body height 2024-01-12 23:00:00 152.4 cm [facility] Body weight 2024-01-12 23:00:00 73.483 kg [facility] BMI 2024-01-12 23:00:00 31.64 kg/m2 [facility] Systolic blood pressure 2024-01-12 20:38:00 138 mm[Hg] [facility] Diastolic blood pressure 2024-01-12 20:38:00 102 mm[Hg] [facility] Heart rate 2024-01-12 20:30:00 72 /min [facility] Body temperature 2024-01-12 20:30:00 36.67 Nisha [facility] Respiratory rate 2024-01-12 20:30:00 16 /min [facility] Body height 2024-01-12 20:30:00 152.4 cm [facility] Body weight 2024-01-12 20:30:[address] [facility] BMI 2024-01-12 20:30:00 31.81 kg/m2 [facility] Heart rate 2024-01-08 13:28:00 84 /min [facility] Body temperature 2024-01-08 13:28:00 36.94 Nisha [facility] Respiratory rate 2024-01-08 13:28:00 18 /min [facility] Oxygen saturation in Arterial blood by Pulse oximetry 2024-01-08 13:28:00 97 /min [facility] Systolic blood pressure 2024-01-08 10:02:00 133 mm[Hg] [facility] Diastolic blood pressure 2024-01-08 10:02:00 90 mm[Hg] [facility] Body height 2024-01-06 11:15:[address] [facility] Body weight 2024-01-06 11:15:[address] [facility] BMI 2024-01-06 11:15:00 34.53 kg/m2 [facility] Systolic blood pressure 2024-01-06 14:15:00 137 mm[Hg] [facility] Diastolic blood pressure 2024-01-06 14:15:00 80 mm[Hg] [facility] Heart rate 2024-01-06 14:15:00 95 /min [facility] Oxygen saturation in Arterial blood by Pulse oximetry 2024-01-06 14:15:00 100 /min [facility] Body temperature 2024-01-06 14:05:00 35.94 Nisha [facility] Respiratory rate 2024-01-06 14:05:00 16 /min [facility] Body height 2024-01-06 11:15:[address] [facility] Body weight 2024-01-06 11:15:[address] [facility] BMI 2024-01-06 11:15:00 34.53 kg/m2 [facility] Heart rate 2023-12-31 14:30:00 81 /min [facility] Oxygen saturation in Arterial blood by Pulse oximetry 2023-12-31 14:30:00 99 /min [facility] Systolic blood pressure 2023-12-31 12:00:00 124 mm[Hg] [facility] Diastolic blood pressure 2023-12-31 12:00:00 81 mm[Hg] [facility] Body temperature 2023-12-31 12:00:00 36.78 Nisha [facility] Respiratory rate 2023-12-31 12:00:00 16 /min [facility] Body height 2023-12-30 07:29:00 152.4 cm [facility] Body weight 2023-12-30 07:29:00 78.881 kg [facility] BMI 2023-12-30 07:29:00 33.96 kg/m2 [facility] Systolic blood pressure 2023-12-29 18:58:00 129 mm[Hg] [facility] Diastolic blood pressure 2023-12-29 18:58:00 88 mm[Hg] [facility] Heart rate 2023-12-29 18:56:00 87 /min [facility] Respiratory rate 2023-12-29 18:56:00 18 /min [facility] Body height 2023-12-29 18:56:00 152.4 cm [facility] Body weight 2023-12-29 18:56:[address] [facility] BMI 2023-12-29 18:56:00 33.79 kg/m2 [facility] Systolic blood pressure 2023-12-24 12:11:00 129 mm[Hg] [facility] Diastolic blood pressure 2023-12-24 12:11:00 86 mm[Hg] [facility] Heart rate 2023-12-24 12:11:00 80 /min [facility] Body temperature 2023-12-24 12:11:00 36.89 Nisha [facility] Respiratory rate 2023-12-24 12:11:00 18 /min [facility] Oxygen saturation in Arterial blood by Pulse oximetry 2023-12-24 12:11:00 100 /min [facility] Body height 2023-12-23 23:48:00 152.4 cm [facility] Body weight 2023-12-23 23:48:00 76.93 kg [facility] BMI 2023-12-23 23:48:00 33.12 kg/m2 [facility] Systolic blood pressure 2023-12-13 03:00:00 122 mm[Hg] [facility] Diastolic blood pressure 2023-12-13 03:00:00 82 mm[Hg] [facility] Heart rate 2023-12-13 03:00:00 106 /min [facility] Respiratory rate 2023-12-13 03:00:00 16 /min [facility] Oxygen saturation in Arterial blood by Pulse oximetry 2023-12-13 03:00:00 100 /min [facility] Body temperature 2023-12-13 01:43:00 37.61 Nisha [facility] Body height 2023-12-13 01:43:00 152.4 cm [facility] Body weight 2023-12-13 01:43:[address] [facility] BMI 2023-12-13 01:43:00 33.20 kg/m2 [facility] Systolic blood pressure 2023-12-11 21:14:00 127 mm[Hg] [facility] Diastolic blood pressure 2023-12-11 21:14:00 73 mm[Hg] [facility] Heart rate 2023-12-11 21:14:00 108 /min [facility] Body temperature 2023-12-11 21:13:00 36.61 Nisha [facility] Body height 2023-12-11 21:13:00 160 cm [facility] Body weight 2023-12-11 21:13:[address] [facility] BMI 2023-12-11 21:13:00 29.87 kg/m2 [facility] Systolic blood pressure 2023-11-27 19:15:00 105 mm[Hg] [facility] Diastolic blood pressure 2023-11-27 19:15:00 71 mm[Hg] [facility] Heart rate 2023-11-27 19:15:00 89 /min [facility] Body height 2023-11-27 19:15:00 160 cm [facility] Body weight 2023-11-27 19:15:[address] [facility] BMI 2023-11-27 19:15:00 29.30 kg/m2 [facility] Systolic blood pressure 2023-11-13 16:51:00 111 mm[Hg] [facility] Diastolic blood pressure 2023-11-13 16:51:00 78 mm[Hg] [facility] Heart rate 2023-11-13 16:51:00 85 /min [facility] Body temperature 2023-11-13 16:51:00 36.72 Nisha [facility] Respiratory rate 2023-11-13 16:51:00 18 /min [facility] Body height 2023-11-13 16:51:[address] [facility] Body weight 2023-11-13 16:51:[address] [facility] BMI 2023-11-13 16:51:00 28.59 kg/m2 [facility] Systolic blood pressure 2023-10-30 20:10:00 127 mm[Hg] [facility] Diastolic blood pressure 2023-10-30 20:10:00 84 mm[Hg] [facility] Heart rate 2023-10-30 20:10:00 103 /min [facility] Respiratory rate 2023-10-30 20:10:00 18 /min [facility] Body height 2023-10-30 20:10:[address] [facility] Body weight 2023-10-30 20:10:[address] [facility] BMI 2023-10-30 20:10:00 28.17 kg/m2 [facility] Systolic blood pressure 2023-09-28 20:25:00 136 mm[Hg] [facility] Diastolic blood pressure 2023-09-28 20:25:00 85 mm[Hg] [facility] Heart rate 2023-09-28 20:25:00 86 /min [facility] Body temperature 2023-09-28 20:25:00 36.22 Nisha [facility] Respiratory rate 2023-09-28 20:25:00 17 /min [facility] Body height 2023-09-28 20:25:[address] [facility] Body weight 2023-09-28 20:25:[address] [facility] BMI 2023-09-28 20:25:00 28.06 kg/m2 [facility] Systolic blood pressure 2023-08-31 22:41:00 123 mm[Hg] [facility] Diastolic blood pressure 2023-08-31 22:41:00 87 mm[Hg] [facility] Heart rate 2023-08-31 22:41:00 95 /min [facility] Body temperature 2023-08-31 22:41:00 36.83 Nisha [facility] Respiratory rate 2023-08-31 22:41:00 18 /min [facility] Body height 2023-08-31 22:41:[address] [facility] Body weight 2023-08-31 22:41:[address] [facility] BMI 2023-08-31 22:41:00 30.74 kg/m2 [facility] Oxygen saturation in Arterial blood by Pulse oximetry 2023-08-31 22:41:00 98 /min [facility] Heart rate 2023-08-05 05:54:00 68 /min [facility] Respiratory rate 2023-08-05 05:54:00 16 /min [facility] Oxygen saturation in Arterial blood by Pulse oximetry 2023-08-05 05:54:00 98 /min [facility] Systolic blood pressure 2023-08-05 01:24:00 124 mm[Hg] [facility] Diastolic blood pressure 2023-08-05 01:24:00 84 mm[Hg] [facility] Body temperature 2023-08-05 01:24:00 37.17 Nisha [facility] Body height 2023-08-05 01:24:[address] [facility] Body weight 2023-08-05 01:24:[address] [facility] BMI 2023-08-05 01:24:00 30.08 kg/m2 [facility] Systolic blood pressure 2023-07-30 16:30:00 119 mm[Hg] [facility] Diastolic blood pressure 2023-07-30 16:30:00 87 mm[Hg] [facility] Heart rate 2023-07-30 16:30:00 98 /min [facility] 2023-07-30 16:30:00 18 /min [facility] Body height 2023-07-30 16:30:00 152.4 cm [facility] weight 2023-07-30 16:30:00 69.854 kg [facility] BMI 2023-07-30 16:30:00 30.08 kg/m2 [facility] Systolic blood pressure 2023-07-13 20:06:00 118 mm[Hg] [facility] Diastolic blood pressure 2023-07-13 20:06:00 80 mm[Hg] [facility] Heart rate 2023-07-13 20:06:00 103 /min [facility] Body height 2023-07-13 20:06:00 152.4 cm [facility] Body weight 2023-07-13 20:06:00 68.04 kg [facility] BMI 2023-07-13 20:06:00 29.29 kg/m2 [facility] Systolic blood pressure 2023-07-02 18:02:00 119 mm[Hg] [facility] Diastolic blood pressure 2023-07-02 18:02:00 87 mm[Hg] [facility] Heart rate 2023-07-02 18:02:00 93 /min [facility] Body temperature 2023-07-02 18:02:00 36.72 Nisha [facility] Respiratory rate 2023-07-02 18:02:00 16 /min [facility] Body height 2023-07-02 18:02:00 152.4 cm [facility] Body weight 2023-07-02 18:02:00 70.852 kg [facility] BMI 2023-07-02 18:02:00 30.51 kg/m2 [facility] Oxygen saturation in Arterial blood by Pulse oximetry 2023-07-02 18:02:00 97 /min [facility] Systolic blood pressure 2023-06-04 18:21:00 111 mm[Hg] [facility] Diastolic blood pressure 2023-06-04 18:21:00 72 mm[Hg] [facility] Heart rate 2023-06-04 18:21:00 68 /min [facility] Body temperature 2023-06-04 18:21:00 36.72 Nisha [facility] Respiratory rate 2023-06-04 18:21:00 16 /min [facility] Body height 2023-06-04 18:21:[address] [facility] Body weight 2023-06-04 18:21:[address] [facility] BMI 2023-06-04 18:21:00 30.47 kg/m2 [facility] Systolic blood pressure 2023-05-28 16:46:00 118 mm[Hg] [facility] Diastolic blood pressure 2023-05-28 16:46:00 80 mm[Hg] [facility] Heart rate 2023-05-28 16:46:00 95 /min [facility] Body temperature 2023-05-28 16:46:00 36.83 Nisha [facility] Respiratory rate 2023-05-28 16:46:00 18 /min [facility] Body height 2023-05-28 16:46:[address] [facility] Body weight 2023-05-28 16:46:[address] [facility] BMI 2023-05-28 16:46:00 31.25 kg/m2 [facility] Systolic blood pressure 2023-05-25 20:00:47 126 mm[Hg] [facility] Diastolic blood pressure 2023-05-25 20:00:47 71 mm[Hg] [facility] Heart rate 2023-05-25 20:00:47 92 [facility] Respiratory rate 2023-05-25 20:00:47 18 /min [facility] Oxygen saturation in Arterial blood by Pulse oximetry 2023-05-25 20:00:47 100 /min [facility] Body temperature 2023-05-25 16:09:00 37.22 Nisha [facility] Body height 2023-05-25 16:09:00 152.4 cm [facility] Body weight 2023-05-25 16:09:00 73.029 kg [facility] BMI 2023-05-25 16:09:00 31.44 kg/m2 [facility] Systolic blood pressure 2023-05-21 15:16:00 121 mm[Hg] [facility] Diastolic blood pressure 2023-05-21 15:16:00 81 mm[Hg] [facility] Heart rate 2023-05-21 15:16:00 93 /min [facility] Body temperature 2023-05-21 15:16:00 36.94 Nisha [facility] Respiratory rate 2023-05-21 15:16:00 16 /min [facility] Body height 2023-05-21 15:16:00 152.4 cm [facility] Body weight 2023-05-21 15:16:[address] [facility] BMI 2023-05-21 15:16:00 31.19 kg/m2 [facility] Oxygen saturation in Arterial blood by Pulse oximetry 2023-05-21 15:16:00 99 /min [facility] Systolic blood pressure 2023-04-29 15:40:00 119 mm[Hg] [facility] Diastolic blood pressure 2023-04-29 15:40:00 86 mm[Hg] [facility] Heart rate 2023-04-29 15:40:00 78 /min [facility] Respiratory rate 2023-04-29 15:40:00 18 /min [facility] Body height 2023-04-29 15:40:00 152.4 cm [facility] weight 2023-04-29 15:40:[address] [facility] BMI 2023-04-29 15:40:00 30.08 kg/m2 [facility] Sy[facility] blood pressure 2023-03-19 14:04:00 122 mm[Hg] [facility] Diastolic blood pressure 2023-03-19 14:04:00 81 mm[Hg] [facility] Heart rate 2023-03-19 14:04:00 80 /min [facility] Body temperature 2023-03-19 14:04:00 36.5 Nisha [facility] Body height 2023-03-19 14:04:00 152.4 cm [facility] Body weight 2023-03-19 14:04:[address] [facility] BMI 2023-03-19 14:04:00 30.15 kg/m2 [facility] Systolic blood pressure 2023-01-28 18:59:00 127 mm[Hg] [facility] Diastolic blood pressure 2023-01-28 18:59:00 89 mm[Hg] [facility] Heart rate 2023-01-28 18:59:00 74 /min [facility] Respiratory rate 2023-01-28 18:59:00 18 /min [facility] Body height 2023-01-28 18:59:00 152.4 cm [facility] Body weight 2023-01-28 18:59:[address] [facility] BMI 2023-01-28 18:59:00 30.47 kg/m2 [facility] Systolic blood pressure 2023-01-23 17:03:00 122 mm[Hg] [facility] Diastolic blood pressure 2023-01-23 17:03:00 82 mm[Hg] [facility] Heart rate 2023-01-23 17:03:00 91 /min [facility] Body temperature 2023-01-23 17:03:00 36.72 Nisha [facility] Respiratory rate 2023-01-23 17:03:00 14 /min [facility] Body weight 2023-01-23 17:03:[address] [facility] Oxygen saturation in Arterial blood by Pulse oximetry 2023-01-23 17:03:00 99 /min [facility] Systolic blood pressure 2022-11-24 16:49:00 121 mm[Hg] [facility] Diastolic blood pressure 2022-11-24 16:49:00 85 mm[Hg] [facility] Heart rate 2022-11-24 16:49:00 83 /min [facility] Body temperature 2022-11-24 16:49:00 36.67 Nisha [facility] Respiratory rate 2022-11-24 16:49:00 16 /min [facility] Body height 2022-11-24 16:49:[address] [facility] Body weight 2022-11-24 16:49:[address] [facility] BMI 2022-11-24 16:49:00 31.39 kg/m2 [facility] Systolic blood pressure 2022-10-10 01:39:00 130 mm[Hg] [facility] Diastolic blood pressure 2022-10-10 01:39:00 98 mm[Hg] [facility] Heart rate 2022-10-10 01:39:00 102 /min [facility] Body temperature 2022-10-10 01:39:00 36.61 Nisha [facility] Respiratory rate 2022-10-10 01:39:00 20 /min [facility] Body height 2022-10-10 01:39:[address] [facility] Body weight 2022-10-10 01:39:[address] [facility] BMI 2022-10-10 01:39:00 31.23 kg/m2 [facility] Oxygen saturation in Arterial blood by Pulse oximetry 2022-10-10 01:39:00 98 /min [facility] Systolic blood pressure 2022-10-01 17:06:00 118 mm[Hg] [facility] Diastolic blood pressure 2022-10-01 17:06:00 79 mm[Hg] [facility] Heart rate 2022-10-01 17:06:00 78 /min [facility] Body temperature 2022-10-01 17:06:00 36.78 Nisha [facility] Respiratory rate 2022-10-01 17:06:00 18 /min [facility] Body height 2022-10-01 17:06:00 149.9 cm [facility] weight 2022-10-01 17:06:00 68.493 kg [facility] BMI 2022-10-01 17:06:00 30.50 kg/m2 [facility] Systolic blood pressure 2022-09-18 15:00:00 131 mm[Hg] [facility] Diastolic blood pressure 2022-09-18 15:00:00 83 mm[Hg] [facility] Heart rate 2022-09-18 15:00:00 78 /min [facility] Body height 2022-09-18 15:00:00 149.9 cm [facility] Body weight 2022-09-18 15:00:00 68.901 kg [facility] BMI 2022-09-18 15:00:00 30.68 kg/m2 [facility] Oxygen saturation in Arterial blood by Pulse oximetry 2022-09-18 15:00:00 98 /min [facility] Body height 2022-07-14 16:15:00 149.9 cm [facility] Body weight 2022-07-14 16:15:00 68.765 kg [facility] BMI 2022-07-14 16:15:00 30.62 kg/m2 [facility] Body weight 2022-05-26 20:56:[address] [facility] Systolic blood pressure 2024-01-07 18:42:00 132 mm[Hg] [facility] Diastolic blood pressure 2024-01-07 18:42:00 88 mm[Hg] [facility] Heart rate 2024-01-07 18:42:00 87 /min [facility] Body temperature 2024-01-07 18:42:00 36.44 Nisha [facility] Respiratory rate 2024-01-07 18:42:00 18 /min [facility] Oxygen saturation in Arterial blood by Pulse oximetry 2024-01-07 18:42:00 100 /min [facility] Body height 2024-01-06 11:15:[address] [facility] Body weight 2024-01-06 11:15:[address] [facility] BMI 2024-01-06 11:15:00 34.53 kg/m2 [facility] Procedures Procedure Date / Time Performed Performing Clinician Source US GALL BLADDER 2024-09-13 14:46:52 Alissa Le [facility] POCT TEST 2024-09-13 12:50:00 Kristen Sanford [facility] LIPASE 2024-09-13 12:49:00 Kristen Sanford [facility] COMP. METABOLIC PANEL (29233) 2024-09-13 12:49:00 Kristen Sanford [facility] CBC WITH DIFF 2024-09-13 12:49:00 Kristen Sanford [facility] URINALYSIS 2024-09-13 12:49:00 Kristen Sanford [facility] XR CHEST 1 VW 2024-04-20 18:07:00 Flaco Miriam [facility] RAPID STREP SCREEN FOR GROUP A 2024-04-11 0 16:33:00 Flaco Miriam [facility] INFLUENZA A/B RSV COVID NAAT 2024-04-20 16:33:00 Flaco Miriam [facility] URINALYSIS 2024-04-20 16:31:00 Flaco Miriam [facility] POCT TEST 2024-02-18 00:00:00 Valentine Montes [facility] RAPID STREP SCREEN FOR GROUP A 2024-01-11 8 03:27:00 Latosha Sanchez [facility] SGOT (ASPARTATE AMINO TRANSFER) 23:02:00 Rosio Thompson [facility] CREATININE 2024-01-12 23:02:00 Adum, Rosio Garcia [facility] ALANINE AMINO TRANSFERASE(SGPT 2 23:02:00 Adum, Rosio Garcia [facility] LACTATE DEHYDROGENASE 2024-01-12 23:02:00 Adum, Rosio Garcia [facility] URIC ACID 2024-01-12 23:02:00 Adum, Rosio Garcia [facility] CBC WITH DIFF 2024-01-12 23:02:00 Adum, Rosio Garcia [facility] URINALYSIS 2024-01-12 23:02:00 Adum, Rosio Garcia [facility] CBC WITH DIFF 2024-01-07 09:10:00 [facility] CBC WITH DIFF 2024-01-07 09:10:00 [facility] CBC WITH DIFF 2024-01-07 09:10:00 [facility] CENTRAL NEURAXIAL BLOCK 2024-01-06 13:11:00 Drake Gallardo [facility] SECTION 2024-01-06 12:43:00 [facility] SECTION 2024-01-06 12:43:00 [facility] SECTION 2024-01-06 12:43:00 [facility] HB ABO GROUPING 2024-01-06 11:27:00 [facility] RHO (D) IMMUNE GLOBULIN 2024-01-06 11:27:00 [facility] HB ABO GROUPING 2024-01-06 11:27:00 [facility] RHO (D) IMMUNE GLOBULIN 2024-01-06 11:27:00 [facility] HB ABO GROUPING 2024-01-06 11:27:00 [facility] RHO (D) IMMUNE GLOBULIN 2024-01-06 11:27:00 [facility] CBC WITH DIFF 2024-01-05 17:15:00 [facility] HEPATITIS B SURFACE ANTIGEN 2024-01-05 17:15:00 [facility] ADC OR SHAUNA ONLY - RPR 2024-01-05 17:15:00 [facility] HIV 1/2 AG-AB WITH REFLEX 2024-01-05 17:15:00 [facility] NON-STRESS TEST 2024-01-05 15:16:30 [facility] POCT URINALYSIS W/O SPECIFIC GRAVITY 2024-01-05 00:00:00 [facility] SECOND AND THIRD TRIMESTER ULTRASOUND 2024-01-01 16:57:00 [facility] SECOND AND THIRD TRIMESTER ULTRASOUND 2024-01-01 16:57:00 [facility] HEPATITIS B SURFACE ANTIGEN 2023-12-30 12:58:00 [facility] HB ABO GROUPING 2023-12-30 12:58:00 [facility] ADC OR SHAUNA ONLY - RPR 2023-12-30 12:58:00 [facility] HIV 1/2 AG-AB WITH REFLEX 2023-12-30 12:58:00 [facility] HEPATITIS B SURFACE ANTIGEN 2023-12-30 12:58:00 [facility] ADC OR SHAUNA ONLY - RPR 2023-12-30 12:58:00 [facility] HB ABO GROUPING 2023-12-30 12:58:00 [facility] HIV 1/2 AG-AB WITH REFLEX 2023-12-30 12:58:00 [facility] PROTEIN CREAT RATIO URINE RANDOM 2023-12-30 09:48:00 [facility] PROTEIN CREAT RATIO URINE RANDOM 2023-12-30 09:48:00 [facility] NOTICE OF PRIVACY PRACTICES 2023-12-30 07:25:47 Doctor Unassigned, [place] [facility] NOTICE OF PRIVACY PRACTICES 2023-12-30 07:25:47 Doctor Unassigned, [place] [facility] CONSENT/REFUSAL FOR DIAGNOSI S AND TREATMENT 2023-12-30 07:24:45 Doctor Unassigned, [place] [facility] CONSENT/REFUSAL FOR DIAGNOSI S AND TREATMENT 2023-12-30 07:24:45 Doctor Unassigned, [place] [facility] HOSPITAL ADMISSION 2023-12-30 05:01:00 Doctor Unassigned, [place] [facility] CBC WITH DIFF 2023-12-29 19:47:00 [facility] 2023-12-29 19:47:00 [facility] COMP. METABOLIC PANEL (51617) 2023-12-29 19:47:00 [facility] LACTATE DEHYDROGENASE 2023-12-29 19:47:00 [facility] DSU PRE-OP 2023-12-29 05:01:00 Doctor Unassigned, [place] [facility] POCT URINALYSIS W/O SPECIFIC GRAVITY 2023-12-29 00:00:00 [facility] POCT URINALYSIS W/O SPECIFIC GRAVITY 2023-12-29 00:00:00 [facility] NON-STRESS TEST 2023-12-24 13:29:11 Brett [facility] NON-STRESS TEST 2023-12-24 13:29:11 Brett [facility] GROUP B STREPTOCOCCUS BY PCR 2023-12-24 01:15:00 [facility] CHLAM[facility]DIA AMPLIFIED ASSAY 2023-12-11 4 01:15:00 Brett [facility] CBC WITH DIFF 2023-12-24 00:44:00 Brett [facility] URINALYSIS 2023-12-24 00:44:00 Brett [facility] ADC CLC OR LCC ONLY - WET PREP 2023-12-11 4 00:44:00 Brett [facility] URINE CULTURE 2023-12-24 00:44:00 Brett [facility] ADC CLC OR LCC ONLY - WET PREP 2023-12-11 4 00:44:00 Brett [facility] CBC WITH DIFF 2023-12-24 00:44:00 Brett [facility] URINALYSIS 2023-12-24 00:44:00 Brett [facility] CONSENT/REFUSAL FOR DIAGNOSI S AND TREATMENT 2023-12-23 23:29:32 Doctor Unassigned, [place] [facility] CONSENT/REFUSAL FOR DIAGNOSI S AND TREATMENT 2023-12-23 23:29:32 Doctor Unassigned, [place] [facility] CREATININE U 24 HR 2023-12-14 18:00:00 [facility] PROTEIN QUANT U/24H 2023-12-14 18:00:00 [facility] BASIC METABOLIC PANEL (NA, K , CL, CO2, GLUCOSE, BUN, CREATININE, CA) 2023-12-13 02:17:00 Pallavi Molina [facility] CBC WITH DIFF 2023-12-13 02:17:00 Pallavi Molina [facility] RAPID INFLUENZA A/B 2023-12-13 02:17:00 Pallavi Molina [facility] COVID-19 (ID NOW RAPID TESTING) 02:17:00 Pallavi Molina [facility] COVID-19 (ID NOW RAPID TESTING) 02:17:00 Pallavi Molina [facility] RAPID INFLUENZA A/B 2023-12-13 02:17:00 Pallavi Molina [facility] CBC WITH DIFF 2023-12-13 02:17:00 Pallavi Molina [facility] BASIC METABOLIC PANEL (NA, K , CL, CO2, GLUCOSE, BUN, CREATININE, CA) 2023-12-13 02:17:00 Pallavi Molina [facility] LAB ONLY COVID INTERPRETATION 2023-12-13 02:17:00 Pallavi Molina [facility] ASSIGNMENT OF BENEFITS 2023-12-13 01:36:22 Doctor Unassigned, [place] [facility] ASSIGNMENT OF BENEFITS 2023-12-13 01:36:22 Doctor Unassigned, [place] [facility] CONSENT/REFUSAL FOR DIAGNOSI S AND TREATMENT 2023-12-13 01:35:59 Doctor Unassigned, [place] [facility] CONSENT/REFUSAL FOR DIAGNOSI S AND TREATMENT 2023-12-13 01:35:59 Doctor Unassigned, [place] [facility] EMERGENCY SERVICES AGREEMENT S AND AUTHORIZATIONS 2023-12-12 06:01:00 Doctor Unassigned, [place] [facility] CREATININE 2023-12-11 21:39:00 [facility] LACTATE DEHYDROGENASE 2023-12-11 21:39:00 [facility] URIC ACID 2023-12-11 21:39:00 [facility] ALANINE AMINO TRANSFERASE(SGPT 1 21:39:00 [facility] SGOT (ASPARTATE AMINO TRANSFER) 21:39:00 [facility] POCT URINALYSIS W/O SPECIFIC GRAVITY 2023-12-11 00:00:00 [facility] POCT URINALYSIS W/O SPECIFIC GRAVITY 2023-12-11 00:00:00 [facility] EXTERNAL PROVIDER RECORDS 2023-12-07 06:01:00 Doctor Unassigned, [place] [facility] EXTERNAL PROVIDER RECORDS 2023-12-07 06:01:00 Doctor Unassigned, [place] [facility] SECOND AND THIRD TRIMESTER ULTRASOUND 2023-12-03 21:53:00 [facility] SECOND AND THIRD TRIMESTER ULTRASOUND 2023-12-03 21:53:00 [facility] POCT URINALYSIS W/O SPECIFIC GRAVITY 2023-11-27 00:00:00 [facility] POCT URINALYSIS W/O SPECIFIC GRAVITY 2023-11-27 00:00:00 [facility] POCT URINALYSIS W/O SPECIFIC GRAVITY 2023-11-13 16:54:00 [facility] POCT URINALYSIS W/O SPECIFIC GRAVITY 2023-11-13 16:54:00 [facility] SECOND AND THIRD TRIMESTER ULTRASOUND 2023-11-05 21:02:00 [facility] SECOND AND THIRD TRIMESTER ULTRASOUND 2023-11-05 21:02:00 [facility] GLUCOSE 1 HOUR POST PRANDIAL 2023-10-30 21:48:00 [facility] ADC OR SHAUNA ONLY - RPR 2023-10-30 21:48:00 [facility] HIV 1/2 AG-AB WITH REFLEX 2023-10-30 21:48:00 [facility] HB ABO GROUPING 2023-10-30 21:48:00 [facility] CBC WITH DIFF 2023-10-30 21:48:00 [facility] TDAP VACCINE, >11 YRS, IM 2023-10-30 20:14:34 [facility] TDAP VACCINE, >11 YRS, IM 2023-10-30 20:14:34 [facility] POCT URINALYSIS W/O SPECIFIC GRAVITY 2023-10-30 00:00:00 [facility] POCT URINALYSIS W/O SPECIFIC GRAVITY 2023-10-30 00:00:00 [facility] SECOND AND THIRD TRIMESTER ULTRASOUND 2023-10-08 22:11:00 [facility] SECOND AND THIRD TRIMESTER ULTRASOUND 2023-10-08 22:11:00 [facility] SECOND AND THIRD TRIMESTER ULTRASOUND 2023-10-08 22:04:00 [facility] SECOND AND THIRD TRIMESTER ULTRASOUND 2023-10-08 22:04:00 [facility] POCT URINALYSIS W/O SPECIFIC GRAVITY 2023-09-28 00:00:00 [facility] SECOND AND THIRD TRIMESTER ULTRASOUND 2023-09-10 18:24:00 [facility] SECOND AND THIRD TRIMESTER ULTRASOUND 2023-09-10 18:04:00 [facility] POCT URINALYSIS W/O SPECIFIC GRAVITY 2023-08-31 00:00:00 [facility] ASSIGNMENT OF BENEFITS 2023-08-05 02:47:45 Doctor Unassigned, [place] [facility] LIPASE 2023-08-05 02:10:00 Derek [facility] COMP. METABOLIC PANEL (18589) 2023-08-05 02:10:00 Regla Reed [facility] CBC WITH DIFF 2023-08-05 02:10:00 Derek [facility] URINALYSIS 2023-08-05 02:10:00 [facility] [place] [facility] CONSENT/REFUSAL FOR DIAGNOSI S AND TREATMENT 2023-08-05 01:12:31 Doctor Unassigned, [place] [facility] POCT URINALYSIS W/O SPECIFIC GRAVITY 2023-07-30 00:00:00 Valentine Montes [facility] POCT URINALYSIS W/O SPECIFIC GRAVITY 2023-07-13 00:00:00 Valentine Montes [facility] SCANNED LAB RESULTS 2023-07-02 05:01:00 Doctor Unassigned, [place] [facility] POCT URINALYSIS W/O SPECIFIC GRAVITY 2023-07-02 00:00:00 Valentine Montes [facility] INSURANCE CORRESPONDENCE 2023-06-16 05:01:00 Doctor Unassigned, [place] [facility] OB TRANSVAGINAL 2023-06-04 18:32:47 Parul Montessol [facility] HADOOP JAVA DEVELOPER CLINIC ULTRASOUND 2023-06-04 05:01:00 Doctor Unassigned, [place] [facility] POCT URINALYSIS W/O SPECIFIC GRAVITY 2023-06-04 00:00:00 Valentine Montes [facility] OB TRANSVAGINAL 2023-05-28 17:16:09 Parul Montessol [facility] POCT URINALYSIS W/O SPECIFIC GRAVITY 2023-05-28 00:00:00 Valentine Montes [facility] FIRST TRIMESTER LESS THAN 14 WEEKS WITH TRANSVAGINAL 2023-05-25 18:19:03 Ernesto Wharton [facility] LIPASE 2023-05-25 17:45:00 Ernesto Wharton [facility] COMP. METABOLIC PANEL (59008) 2023-05-25 17:45:00 Ernesto Wharton [facility] TOTAL BETA HCG ASSAY 2023-05-25 17:45:00 Ernesto Wharton [facility] CBC WITH DIFF 2023-05-25 17:45:00 Ernesto Wharton [facility] URINALYSIS 2023-05-25 17:45:00 Ernesto Wharton [facility] POCT TEST 2023-05-25 17:40:00 Ernesto Wharton [facility] ASSIGNMENT OF BENEFITS 2023-05-25 17:09:27 Doctor Unassigned, [place] [facility] CONSENT/REFUSAL FOR DIAGNOSI S AND TREATMENT 2023-05-25 15:48:13 Doctor Unassigned, [place] [facility] OB TRANSVAGINAL 2023-05-21 15:51:20 Jyoti Valentine [facility] GC & CHLAMYDIA AMPLIFIED ASSAY 2023-05-12 0 15:44:00 [facility] TRICHOMONAS AMPLIFIED ASSAY 2023-05-21 15:44:00 [facility] POCT TEST 2023-05-21 00:00:00 Jyoti Valentine [facility] PELVIS COMPLETE WITH TRANSVAGINAL 2023-05-07 18:39:03 Daren [facility] PELVIS COMPLETE WITH TRANSVAGINAL 2023-02-24 20:54:19 Daren [facility] WOUND/ASPIRATE OR ABSCESS CULTURE 2023-01-28 21:33:00 Daren [facility] WOUND CULTURE 2023-01-28 21:33:00 Daren [facility] PROLACTIN 2023-01-28 20:10:00 Daren [facility] THYROID STIMULATING HORMONE 2023-01-28 20:10:00 Daren [facility] COMP. METABOLIC PANEL (80559) 2023-01-28 20:10:00 Daren [facility] LIPID PANEL (43346)(TOTAL CHOLESTEROL, TRIGLYCERIDES, HDL) 2023-01-28 20:10:00 Daren [facility] DEHYDROEPIANDROSTERONE SULFATE 2023-01-10 9 20:10:00 Daren [facility] CBC WITH DIFF 2023-01-28 20:10:00 Daren [facility] GLYCOSYLATED HEMOGLOBIN (A1C) 2023-01-28 20:10:00 Daren [facility] HEPATITIS B SURFACE ANTIGEN 2023-01-28 20:10:00 Daren [facility] HCV ANTIBODY 2023-01-28 20:10:00 Daren [facility] ADC OR SHAUNA ONLY - RPR 2023-01-28 20:10:00 Daren [facility] HIV 1/2 AG-AB WITH REFLEX 2023-01-28 20:10:00 Daren [facility] GC & CHLAMYDIA AMPLIFIED ASSAY 2023-01-10 9 19:02:00 Daren [facility] TRICHOMONAS AMPLIFIED ASSAY 2023-01-28 19:02:00 Daren [facility] CONSENT/REFUSAL FOR DIAGNOSI S AND TREATMENT 2023-01-23 16:59:14 Doctor Unassigned, [place] [facility] POCT TEST 2022-11-24 00:00:00 Daren [facility] POCT TEST 2022-10-10 02:57:00 Hilda Gómez [facility] ASSIGNMENT OF BENEFITS 2022-10-10 01:54:06 Doctor Unassigned, [place] [facility] RAPID STREP SCREEN FOR GROUP A 2022-09-13 0 01:48:00 Hilda Gómez [facility] RAPID INFLUENZA A/B 2022-10-10 01:48:00 Hilda Gómez [facility] COVID-19 (ID NOW RAPID TESTING) 01:48:00 Hilda Gómez [facility] NOTICE OF PRIVACY PRACTICES 2022-10-10 01:26:12 Doctor Unassigned, [place] [facility] CONSENT/REFUSAL FOR DIAGNOSI S AND TREATMENT 2022-10-10 01:25:34 Doctor Unassigned, [place] [facility] POCT TEST 2022-10-01 00:00:00 Daren [facility] POCT TEST 2022-09-18 15:08:00 Daren [facility] Encounters Start Date/Time End Date/Time Encounter Type Admission Type Attending [facility] Facility Care Department Encounter ID Source 2023-09-07 19:42:27 Outpatient X MAYA-TAHIR S, VALENTINE MAYA-TAHIR S, VALENTINE [facility] [id number] [facility] 2022-05-27 07:53:54 Outpatient R PERLA ZAVALETA [facility] [place] [id number] [facility] 2022-05-09 15:51:37 Emergency X [facility] [place] [id number] [facility] 2022-05-09 15:45:58 Emergency X DE JESUS YAMILKA [facility] [place] [id number] [facility] 2022-05-09 15:45:27 Emergency X MSMB [place] [id number] [facility] 2022-05-09 15:38:57 Emergency X MONIS CHULA [facility] [place] [id number] [facility] 2022-05-09 14:28:14 Emergency X MONIS CHULA [facility] [place] [id number] [facility] 2021-08-13 09:55:02 Outpatient P [facility] [id number] [facility] 2024-09-13 06:39:00 2024-09-13 10:38:00 Emergency X ALISSA LE ERIN [facility] ERT [id number] [facility] 2024-09-13 06:39:00 2024-09-13 10:38:00 Emergency Alissa Le [facility] 1.2.840.114 350.1.13.10 4.2.7.2.686 [id number] [facility] 2024-04-20 11:19:00 2024-04-20 14:41:00 Emergency X MIRIAM LEZAMA [facility] ERT [id number] [facility] 2024-04-20 11:19:00 2024-04-20 14:41:00 Emergency Miriam Lezama [facility] 1.2.840.114 350.1.13.10 4.2.7.2.686 [id number] [facility] 2024-03-31 13:30:00 2024-03-31 13:30:00 Outpatient R MAYA-TAHIR S, VALENTINE [facility] S, [facility] [id number] [facility] 2024-02-10 00:00:00 2024-03-12 18:04:55 Patient Secure Msg Maya-Tahir s, [facility], [facility]IMARY [facility] SPECIALTY [facility] 1.2.840.114 350.1.13.10 4.2.7.2.686 [id number] [facility] 2024-03-02 00:00:00 2024-03-02 13:18:49 Patient Secure Msg Maya-Tahir s, Valentine [facility] 1.2.840.114 350.1.13.10 4.2.7.2.686 [id number] [facility] 2024-02-18 14:30:00 2024-02-18 14:45:00 [facility] 1.2.840.114 350.1.13.10 4.2.7.2.686 [id number] [facility] 2024-02-18 14:30:00 2024-02-18 14:30:00 Outpatient R MAYA-TAHIR S, VALENTINE [facility], [facility] [id number] [facility] 2024-02-09 13:00:00 2024-02-09 13:18:46 Outpatient R MAYA-TAHIR S, VAL[facility]INE [facility] S, [facility] [id number] [facility] 2024-02-09 13:00:00 2024-02-09 13:18:46 Routine Visit Maya-Tahir sHafsal [facility] 1.2840.114 350.1.13.10 4.2.7.2.686 [id number] [facility] 2024-01-27 22:28:00 2024-01-27 23:31:00 Emergency X Latosha SANCHZE [facility] ERT [id number] [facility] 2024-01-27 22:28:00 2024-01-27 23:31:00 Emergency Latosha Sanchez Lesvia [facility] 1.840.114 350.1.13.10 4.2.7.2.686 [id number] [facility] 2024-01-19 08:45:00 2024-01-19 08:55:44 Outpatient R MAYA-TAHIR S, VALENTINE [facility] S, [facility] [id number] [facility] 2024-01-19 08:45:00 2024-01-19 08:55:44 Routine Visit Maya-Tahir sValentine [facility] 1.2840.114 350.1.13.10 4.2.7.2.686 [id number] [facility] 2024-01-14 14:30:00 2024-01-14 14:30:00 Outpatient R MAYA-TAHIR S, VALENTINE [facility] S, [facility] [id number] [facility] 2024-01-12 17:02:00 2024-01-14 08:15:00 Inpatient P MAYA-TAHIR S, VALENTINE MAYA-TAHIR S, [facility]INE [facility] [id number] [facility] 2024-01-12 17:02:00 2024-01-14 08:15:00 Hospital Encounter Maya-Tahir s, Valentine [facility] 1.2.840.114 350.1.13.10 4.2.7.2.686 [id number] [facility] 2024-01-12 14:45:00 2024-01-12 15:45:56 Outpatient R MAYA-TAHIR S, VAL[facility]INE [facility], [facility] [id number] [facility] 2024-01-12 14:45:00 2024-01-12 15:45:56 Nurse Visit Mayte-Tahir sParulValentine [facility] 1.2.840.114 350.1.13.10 4.2.7.2.686 [id number] [facility] 2024-01-09 00:00:00 2024-01-09 00:00:00 Nurse Triage [facility] 1.2.840.114 350.1.13.10 4.2.7.2.686 [id number] [facility] 2024-01-06 05:59:00 2024-01-08 12:40:00 Inpatient P MAYA-TAHIR S, VALENTINE MAYA-TAHIR S, VALENTINE [facility] [id number] [facility] 2024-01-06 05:59:00 2024-01-08 12:40:00 Hospital Encounter Maya-Tahir sParulValentine [facility] 1.2.840.114 350.1.13.10 4.2.7.2.686 [id number] [id number] [facility] 2024-01-07 08:01:58 2024-01-07 08:01:58 Anesthesia Event Umesh Garcia [facility] 1.2.840.114 350.1.13.10 4.2.7.2.686 [id number] [facility] 2024-01-06 07:55:00 2024-01-06 09:36:00 Surgery Maya-Tahir s Valentine 1.2.840.1 89050.1.1 3.104.2.7 .3.872512 .8 [id number] [facility] 2024-01-06 07:58:00 2024-01-06 09:04:00 Anesthesia Event Alissa Neely Thomas 1.2.840.1 33305.1.1 3.104.2.7 .3.967899 .8 [id number] [facility] 2024-01-06 00:00:00 2024-01-06 00:00:00 Travel 1.2.840.1 67009.1.1 3.104.2.7 .3.839339 .8 1.2.840.114 350.1.13.10 4.2.7.3.698 084.8 [id number] [facility] 2024-01-05 13:30:00 2024-01-05 13:30:00 Outpatient R MAYA-TAHIR S, VALENTINE MAYA-TAHIR S, [facility] [id number] [facility] 2024-01-05 12:15:00 2024-01-05 12:30:00 Private Duty Nurse Visit Maya-Tahir s Valentine Pob, Adc Lab Main 1.2.840.1 20079.1.1 3.104.2.7 .3.855619 .8 [id number] [facility] 2024-01-05 12:15:00 2024-01-05 12:15:00 Outpatient R MAYA-TAHIR S, VALENTINE MAYA-TAHIR S, [facility] [id number] [facility] 2024-01-05 10:20:00 2024-01-05 11:20:00 Ancillary Procedure Maya-Tahir s, Valentine 1.2.840.1 29641.1.1 3.104.2.7 .3.151404 .8 [id number] [facility] 2024-01-05 10:00:00 2024-01-05 10:20:57 Routine Visit Arash rivera Valentine 1, Lkj Nst Room 1.2.840.1 14943.1.1 3.104.2.7 .3.598286 .8 [id number] [facility] 2024-01-05 00:00:00 2024-01-05 00:00:00 Travel 1.2.840.1 19141.1.1 3.104.2.7 .3.036097 .8 1.2.840.114 350.1.13.10 4.2.7.3.698 084.8 [id number] [facility] 2024-01-01 11:30:00 2024-01-01 13:37:31 Outpatient P RODRIGO MARY SANGEETA [facility] [id number] [facility] 2024-01-01 11:30:00 2024-01-01 13:37:31 Private Duty Nurse Visit Ultrasound, Rodrigo Alvarez [facility] HADOOP JAVA DEVELOPER [facility] 1..840.114 350.1.13.10 4.2.7.2.686 [id number] [facility] 2024-01-01 00:00:00 2024-01-01 00:00:00 Travel 1.2.840.1 00066.1.1 3.104.2.7 .3.104689 .8 1.2.840.114 350.1.13.10 4.2.7.3.698 084.8 [id number] [facility] 2024-01-01 00:00:00 2024-01-01 00:00:00 Patient Secure Msg Doctor Unassigned, [place] [facility] 1.2.840.114 350.1.13.10 4.2.7.2.686 [id number] [id number] [facility] 2023-12-30 02:33:00 2023-12-31 10:00:00 Hospital Encounter Valentine Anderson 1.2.840.1 52227.1.1 3.104.2.7 .3.916273 .8 [id number] [facility] 2023-12-30 12:40:02 2023-12-30 12:40:02 Anesthesia Event Jorje Patel Brian 1.2.840.1 14035.1.1 3.104.2.7 .3.982433 .8 [id number] [facility] 2023-12-30 00:00:00 2023-12-30 00:00:00 Nurse Triage Mer Dixon 1.2.840.1 30123.1.1 3.104.2.7 .3.451400 .8 [id number] [facility] 2023-12-29 14:45:00 2023-12-29 15:09:23 Private Duty Nurse Visit Valentine Anderson 2, Adc Lab 1.2.840.1 87529.1.1 3.104.2.7 .3.022566 .8 [id number] [facility] 2023-12-29 13:45:00 2023-12-29 14:11:12 Outpatient R HAFSA ANDERSONL [facility] ANDERSON [facility] [id number] [facility] 2023-12-29 13:45:00 2023-12-29 14:11:12 Routine Visit Valentine Anderson 1.2.840.1 89389.1.1 3.104.2.7 .3.120158 .8 [id number] [facility] 2023-12-29 13:45:00 2023-12-29 14:11:12 Outpatient R [facility] [id number] [facility] 2023-12-29 00:00:00 2023-12-29 00:00:00 Travel 1.2.840.1 85302.1.1 3.104.2.7 .3.085742 .8 1.2.840.114 350.1.13.10 4.2.7.3.698 084.8 [id number] [facility] 2023-12-24 08:30:00 2023-12-24 09:30:00 Ancillary Procedure Kj Gallagher 1.2.840.1 32257.1.1 3.104.2.7 .3.514726 .8 [id number] [facility] 2023-12-23 18:42:00 2023-12-24 08:05:00 Outpatient X KJ GALLAGHER [facility] [place] [id number] [facility] 2023-12-23 18:42:00 2023-12-24 08:05:00 Emergency Kj Gallagher 1.2.840.1 63905.1.1 3.104.2.7 .3.432952 .8 [id number] [facility] 2023-12-23 00:00:00 2023-12-23 00:00:00 Telephone Arash rivera Valentine 1.2.840.1 38721.1.1 3.104.2.7 .3.593682 .8 [id number] [facility] 2023-12-23 00:00:00 2023-12-23 00:00:00 Travel 1.2.840.1 66597.1.1 3.104.2.7 .3.296361 .8 1.2.840.114 350.1.13.10 4.2.7.3.698 084.8 [id number] [facility] 2023-12-15 00:00:00 2023-12-15 00:00:00 Patient Secure Msg Doctor Unassigned, [place] 1.2.840.1 91672.1.1 3.104.2.7 .3.032156 .8 [id number] [facility] 2023-12-15 00:00:00 2023-12-15 00:00:00 Patient Secure Msg MayaErasmo rivera Valentine [facility] 1.840.114 350.1.13.10 4.2.7.2.686 [id number] [facility] 2023-12-14 15:15:00 2023-12-14 15:30:00 Private Duty Nurse Visit Arash rivera Valentine Pob, Adc Lab Main 1.840.1 98342.1.1 3.104.2.7 .3.027256 .8 [id number] [facility] 2023-12-14 15:15:00 2023-12-14 15:15:00 Outpatient R ARASH Rivera, VALENTINE MAYAMagdalenoTAHIR Rivera [facility] [id number] [facility] 2023-12-14 00:00:00 2023-12-14 00:00:00 Patient Secure Msg Doctor Unassigned, [place] [facility] 1.840.114 350.1.13.10 4.2.7.2.686 [id number] [facility] 2023-12-12 19:47:00 2023-12-12 21:43:00 Emergency X PALLAVI MOLINA [facility] ERT [id number] [facility] 2023-12-12 19:47:00 2023-12-12 21:43:00 Emergency Pallavi Molina D 1.840.1 26046.1.1 3.104.2.7 .3.502200 .8 [id number] [facility] 2023-12-12 00:00:00 2023-12-12 00:00:00 Travel 1.2.840.1 81608.1.1 3.104.2.7 .3.373189 .8 1.2.840.114 350.1.13.10 4.2.7.3.698 084.8 [id number] [facility] 2023-12-11 15:30:00 2023-12-11 15:45:00 Private Duty Nurse Visit Valentine Anderson 2, Adc Lab 1.2.840.1 80926.1.1 3.104.2.7 .3.099605 .8 [id number] [facility] 2023-12-11 15:30:00 2023-12-11 15:30:00 Outpatient R VALENTINE ANDERSON MARISOL [facility] [id number] [facility] 2023-12-11 14:45:00 2023-12-11 15:22:48 Routine Visit Valentine Anderson 1.2.840.1 29984.1.1 3.104.2.7 .3.073337 .8 [id number] [facility] 2023-12-11 00:00:00 2023-12-11 00:00:00 Travel 1.2.840.1 68158.1.1 3.104.2.7 .3.290301 .8 1.2.840.114 350.1.13.10 4.2.7.3.698 084.8 [id number] [facility] 2023-12-07 00:00:00 2023-12-07 00:00:00 Orders Only Doctor Unassigned, [place] 1.2.840.1 20688.1.1 3.104.2.7 .3.918019 .8 [id number] [facility] 2023-12-03 15:15:00 2023-12-03 16:01:25 Outpatient JUNIE SEGURA SHANNON [facility] [id number] [facility] 2023-12-03 15:15:00 2023-12-03 16:01:25 Private Duty Nurse Visit Junie Hickey 1.2.840.1 96041.1.1 3.104.2.7 .3.088783 .8 [id number] [facility] 2023-12-03 00:00:00 2023-12-03 00:00:00 Travel 1.2.840.1 72918.1.1 3.104.2.7 .3.631833 .8 1.2.840.114 350.1.13.10 4.2.7.3.698 084.8 [id number] [facility] 2023-11-27 13:15:00 2023-11-27 13:28:27 Outpatient R MAYA-TAHIR S, VALENTINE MAYA-TAHIR S, [facility] [id number] [facility] 2023-11-27 13:15:00 2023-11-27 13:28:27 Routine Visit Maya-Tahir s, Valentine 1.2.840.1 47852.1.1 3.104.2.7 .3.240657 .8 [id number] [facility] 2023-11-27 00:00:00 2023-11-27 00:00:00 Travel 1.2.840.1 22033.1.1 3.104.2.7 .3.299524 .8 1.2.840.114 350.1.13.10 4.2.7.3.698 084.8 [id number] [facility] 2023-11-13 10:45:00 2023-11-13 11:02:36 Outpatient R MAYA-TAHIR S, VALENTINE MAYA-TAHIR S, [facility] [id number] [facility] 2023-11-13 10:45:00 2023-11-13 11:02:36 Routine Visit Maya-Tahir s, Valentine 1.2.840.1 78201.1.1 3.104.2.7 .3.749729 .8 [id number] [facility] 2023-11-13 00:00:00 2023-11-13 00:00:00 Travel 1.2.840.1 54599.1.1 3.104.2.7 .3.393287 .8 1.2.840.114 350.1.13.10 4.2.7.3.698 084.8 [id number] [facility] 2023-11-11 00:00:00 2023-11-11 00:00:00 Telephone Arash Parul riverasol 1.2.840.1 72775.1.1 3.104.2.7 .3.639099 .8 [id number] [facility] 2023-11-09 00:00:00 2023-11-09 00:00:00 Telephone Arash riveraParulValentine 1.2.840.1 79189.1.1 3.104.2.7 .3.343728 .8 [id number] [facility] 2023-11-07 00:00:00 2023-11-07 00:00:00 Nurse Triage RajanMamadoutommie Samson 1.2.840.1 14782.1.1 3.104.2.7 .3.013396 .8 [id number] [facility] 2023-11-07 00:00:00 2023-11-07 00:00:00 Patient Secure Msg MayaKun rivera Valentine 1.2.840.1 29332.1.1 3.104.2.7 .3.338204 .8 [id number] [facility] 2023-11-05 14:30:00 2023-11-05 16:35:26 Outpatient JUNIE ALMEIDA SHANNON [facility] [id number] [facility] 2023-11-05 14:30:00 2023-11-05 16:35:26 Private Duty Nurse Visit Junie Hickey 1.2.840.1 16145.1.1 3.104.2.7 .3.436081 .8 [id number] [facility] 2023-11-05 00:00:00 2023-11-05 00:00:00 Travel 1.2.840.1 38263.1.1 3.104.2.7 .3.335824 .8 1.2.840.114 350.1.13.10 4.2.7.3.698 084.8 [id number] [facility] 2023-10-30 14:45:00 2023-10-30 15:59:51 Private Duty Nurse Visit Valentine Anderson 2, [facility] 1.2.840.1 26639.1.1 3.104.2.7 .3.243664 .8 [id number] [facility] 2023-10-30 14:45:00 2023-10-30 14:45:00 Outpatient R HAFSA ANDERSONL VALENTINE ANDERSON [facility] [id number] [facility] 2023-10-30 13:00:00 2023-10-30 14:28:39 Routine Visit Valentine Anderson 1.2.840.1 20507.1.1 3.104.2.7 .3.684820 .8 [id number] [facility] 2023-10-30 00:00:00 2023-10-30 00:00:00 Travel 1.2.840.1 62013.1.1 3.104.2.7 .3.468158 .8 1.2.840.114 350.1.13.10 4.2.7.3.698 084.8 [id number] [facility] 2023-10-10 00:00:00 2023-10-10 00:00:00 Nurse Triage Ross, Chessica T 1.2.840.1 36986.1.1 3.104.2.7 .3.667136 .8 [id number] [facility] 2023-10-10 00:00:00 2023-10-10 00:00:00 Telephone Arash Hafsa riveral 1.2.840.1 67223.1.1 3.104.2.7 .3.854040 .8 [id number] [facility] 2023-10-08 15:00:00 2023-10-08 16:36:03 Outpatient R TENISHA DOBBS [facility] [id number] [facility] 2023-10-08 15:00:00 2023-10-08 16:36:03 Private Duty Nurse Visit Tenisha Dobbs 1.2.840.1 42565.1.1 3.104.2.7 .3.483916 .8 [id number] [facility] 2023-10-08 00:00:00 2023-10-08 00:00:00 Travel 1.2.840.1 42406.1.1 3.104.2.7 .3.057813 .8 1.2.840.114 350.1.13.10 4.2.7.3.698 084.8 [id number] [facility] 2023-09-28 14:30:00 2023-09-28 14:40:00 Outpatient R ARASH Rivera VALENTINE ARASH Rivera VALENTINE [facility] [id number] [facility] 2023-09-28 14:30:00 2023-09-28 14:40:00 Routine Visit Valentine Anderson [facility] 1.2.840.114 350.1.13.10 4.2.7.2.686 [id number] [facility] 2023-09-10 11:00:00 2023-09-10 12:26:50 Outpatient P JUNIE HICKEY SHANNON [facility] [id number] [facility] 2023-09-10 11:00:00 2023-09-10 12:26:50 Private Duty Nurse Visit 2, [facility] Room Junie Hickey [facility] [facility] [employer] [facility] 1.2.840.114 350.1.13.10 4.2.7.2.686 [id number] [facility] 2023-09-10 00:00:00 2023-09-10 00:00:00 Telephone Parul Andersonsol [facility] 1.2.840.114 350.1.13.10 4.2.7.2.686 [id number] [facility] 2023-09-07 18:05:00 2023-09-07 19:37:00 Outpatient X KJ GALLAGHER [facility] [id number] [facility] 2023-08-31 16:15:00 2023-08-31 16:30:00 Routine Visit Mayte-Tahir Parul riverasol [facility] 1.2.840.114 350.1.13.10 4.2.7.2.686 [id number] 134 [id number] [facility] 2023-08-31 16:15:00 2023-08-31 16:15:00 Outpatient R MAYA-TAHIR S, VALENTINE MAYA-TAHIR S, [facility] [id number] [facility] 2023-08-27 13:00:00 2023-08-27 13:00:00 Outpatient R MAYA-TAHIR S, VALENTINE MAYA-TAHIR S, [facility] [id number] [facility] 2023-08-26 13:00:00 2023-08-26 13:00:00 Outpatient P [facility] [id number] [facility] 2023-08-04 20:25:00 2023-08-05 01:31:00 Emergency X REGLA REED [facility] ERT [id number] [facility] 2023-08-04 20:25:00 2023-08-05 01:31:00 Emergency Regla Reed [facility] 1.2.840.114 350.1.13.10 4.2.7.2.686 [id number] [facility] 2023-07-30 11:30:00 2023-07-30 11:43:40 Outpatient R MAYA-THAIR S, VALENTINE MAYA-TAHIR S, [facility] [id number] [facility] 2023-07-30 11:30:00 2023-07-30 11:43:40 Routine Visit Maya-Tahir s, Valentine [facility] 1.284.114 350.1.13.10 4.2.7.2.686 [id number] 134 [id number] [facility] 2023-07-15 00:00:00 2023-07-15 00:00:00 Patient Secure Msg Doctor Unassigned, [place] [facility] 1.2.840.114 350.1.13.10 4.2.7.2.686 [id number] 134 [id number] [facility] 2023-07-13 14:15:00 2023-07-13 15:23:59 Outpatient R MAYA-TAHIR S, VALENTINE MAYA-TAHIR S, [facility] [id number] [facility] 2023-07-13 14:15:00 2023-07-13 15:23:59 Routine Visit Maya-Tahir s, Valentine [facility] 1.2.840.114 350.1.13.10 4.2.7.2.686 [id number] 134 [id number] [facility] 2023-07-13 00:00:00 2023-07-13 00:00:00 [facility] 1.2840.114 350.1.13.10 4.2.7.2.686 [id number] 134 [id number] [facility] 2023-07-08 00:00:00 2023-07-08 00:00:00 [facility]phone [facility] 1.2840.114 350.1.13.10 4.2.7.2.686 [id number] 134 [id number] [facility] 2023-07-02 13:00:00 2023-07-02 13:18:19 Outpatient R VALENTINE ANDERSON [facility] [id number] [facility] 2023-07-02 13:00:00 2023-07-02 13:18:19 Routine Visit Valentine Anderson [facility] 1.840.114 350.1.13.10 4.2.7.2.686 [id number] [facility] 2023-07-02 00:00:00 2023-07-02 00:00:00 Orders Only Doctor Unassigned, [place] [facility] 1.840.114 350.1.13.10 4.2.7.2.686 [id number] [facility] 2023-07-01 16:45:00 2023-07-01 17:00:00 Private Duty Nurse Visit Pob, Ad[facility] Lab [facility] 1.2840.114 350.1.13.10 4.2.7.2.686 [id number] [facility] 2023-07-01 16:45:00 2023-07-01 16:45:00 Outpatient R MAYA-TAHIR S, VALENTINE MAYA-TAHIR S, [facility] [id number] [facility] 2023-06-18 00:00:00 2023-06-18 00:00:00 Telephone Parul Andersonsol [facility] 1.2.840.114 350.1.13.10 4.2.7.2.686 [id number] 134 [id number] [facility] 2023-06-16 00:00:00 2023-06-16 00:00:00 [facility] 1.2.840.114 350.1.13.10 4.2.7.2.686 [id number] 134 [id number] [facility] 2023-06-16 00:00:00 2023-06-16 00:00:00 Orders Only Doctor Unassigned, [place] [facility] 1.2.840.114 350.1.13.10 4.2.7.2.686 [id number] [facility] 2023-06-10 00:00:00 2023-06-10 00:00:00 Telephone Parul Andersonsol [facility] 1.2.840.114 350.1.13.10 4.2.7.2.686 [id number] 134 [id number] [facility] 2023-06-05 00:00:00 2023-06-05 00:00:00 Telephone Parul Andersonsol [facility] 1.2.840.114 350.1.13.10 4.2.7.2.686 [id number] 134 [id number] [facility] 2023-06-04 13:15:00 2023-06-04 13:34:51 Outpatient R MAYA-TAHIR S, VALENTINE MAYA-TAHIR S, [facility] [id number] [facility] 2023-06-04 13:15:00 2023-06-04 13:34:51 Routine Visit Parul Andersonsol [facility] 1.2.114 350.1.13.10 4.2.7.2.686 [id number] 134 [id number] [facility] 2023-06-04 00:00:00 2023-06-04 00:00:00 Orders Only Doctor Unassigned, [place] [facility] 1.20.114 350.1.13.10 4.2.7.2.686 [id number] [facility] 2023-05-28 13:30:00 2023-05-28 13:45:00 Private Duty Nurse Visit Pob, Adc Lab Main Parul Andersonsol [facility] 1.84.114 350.1.13.10 4.2.7.2.686 [id number] [facility] 2023-05-28 13:30:00 2023-05-28 13:30:00 Outpatient R ARASH Rivera, VALENTINE ARASH Rivera [facility] [id number] [facility] 2023-05-28 11:45:00 2023-05-28 12:13:20 Routine Visit Valentine Anderson [facility] 1.2.114 350.1.13.10 4.2.7.2.686 [id number] 134 [id number] [facility] 2023-05-25 11:12:00 2023-05-25 15:03:00 Emergency X ERNESTO WHARTON [facility] ERT [id number] [facility] 2023-05-25 11:12:00 2023-05-25 15:03:00 Emergency Ernesto Wharton [facility] 1.2.114 350.1.13.10 4.2.7.2.686 [id number] [id number] [facility] 2023-05-23 09:30:00 2023-05-23 09:45:00 Private Duty Nurse Visit Pob, Adc Lab Main Mayte-Tahir s, Valentine [facility] 1.2.840.114 350.1.13.10 4.2.7.2.686 [id number] [facility] 2023-05-23 09:30:00 2023-05-23 09:30:00 Outpatient R MAYA-TAHIR S, VALENTINE MAYA-TAHIR S, [facility] [id number] [facility] 2023-05-21 12:15:00 2023-05-21 12:30:00 Private Duty Nurse Visit Pob, Adc Lab Main Maya-Tahir s, Valentine [facility] 1.2.840.114 350.1.13.10 4.2.7.2.686 [id number] [facility] 2023-05-21 10:00:00 2023-05-21 10:48:02 Outpatient R MAYA-TAHIR S, VALENTINE MAYA-TAHIR S, [facility] [id number] [facility] 2023-05-21 10:00:00 2023-05-21 10:48:02 Initial Visit Maya-Tahir s, Valentine [facility] 1.2.840.114 350.1.13.10 4.2.7.2.686 [id number] 134 [id number] [facility] 2023-05-07 13:00:00 2023-05-07 23:59:00 Outpatient R SOPHIA MERCEDES CHERYAL [facility] [id number] [facility] 2023-05-07 13:00:00 2023-05-07 23:59:00 Hospital Encounter Sophia Mercedes [facility] 1.2.840.114 350.1.13.10 4.2.7.2.686 [id number] [facility] 2023-04-29 10:30:00 2023-04-29 10:52:46 Outpatient R SOPHIA [facility] [id number] [facility] 2023-04-29 10:30:00 2023-04-29 10:52:46 [facility] 1.2.840.114 350.1.13.10 4.2.7.2.686 [id number] 134 [id number] [facility] 2023-03-19 09:00:00 2023-03-19 09:17:42 Outpatient R SOPHIA [facility] [id number] [facility] 2023-03-19 09:00:00 2023-03-19 09:17:42 [facility] 1.2.840.114 350.1.13.10 4.2.7.2.686 [id number] [facility] 2023-03-19 00:00:00 2023-03-19 00:00:00 Telephone [facility] 1.2.840.114 350.1.13.10 4.2.7.2.686 [id number] 134 [id number] [facility] 2023-03-03 00:00:00 2023-03-03 00:00:00 [facility] 1.2.840.114 350.1.13.10 4.2.7.2.686 [id number] 134 [id number] [facility] 2023-02-24 15:16:23 2023-02-24 23:59:00 Outpatient R SOPHIA [facility]ES [facility] [id number] [facility] 2023-02-24 15:15:00 2023-02-24 23:59:00 Hospital Encounter Sophia Mercedes [facility] 1.20.114 350.1.13.10 4.2.7.2.686 [id number] [facility] 2023-01-28 15:00:00 2023-01-28 15:15:00 Private Duty Nurse Visit Pob, Adc Lab Main Sophia Mercedes [facility] PROFESS[facility] 1.2.114 350.1.13.10 4.2.7.2.686 [id number] [facility] 2023-01-28 13:30:00 2023-01-28 14:16:52 Outpatient R SOPHIA [facility]ES [facility] [id number] [facility] 2023-01-28 13:30:00 2023-01-28 14:16:52 Office Visit Sophia Mercedes [facility] 1.2.114 350.1.13.10 4.2.7.2.686 [id number] [facility] 2023-01-23 14:00:00 2023-01-23 14:00:00 Outpatient R SOPHIA [facility] [id number] [facility] 2023-01-23 12:04:00 2023-01-23 12:24:00 Emergency X EDSON MONTANEZ [facility] ERT [id number] [facility] 2023-01-23 12:04:00 2023-01-23 12:24:00 Emergency Edson Montanez [facility] 1.284.114 350.1.13.10 4.2.7.2.686 [id number] [facility] 2023-01-22 10:00:00 2023-01-22 10:00:00 Outpatient R SOPHIA [facility] [id number] [facility] 2022-11-24 10:30:00 2022-11-24 11:00:50 Outpatient R CARLASOPHIA HODGE TAMANNAHERRERASOPHIA HODGE [facility] [id number] [facility] 2022-11-24 10:30:00 2022-11-24 11:00:50 Office Visit Carlanaveen Ziggygwen [facility] 1..840.114 350.1.13.10 4.2.7.2.686 [id number] 134 [id number] [facility] 2022-10-20 09:30:00 2022-10-20 09:30:00 Outpatient R CARLASOPHIA HODGE [facility] [id number] [facility] 2022-10-13 15:00:00 2022-10-13 15:00:00 Outpatient PERLA FOUNTAIN [facility] [id number] [facility] 2022-10-09 19:49:00 2022-10-09 21:03:00 Emergency X HILDA GÓMEZ [facility] ERT [id number] [facility] 2022-10-09 19:49:00 2022-10-09 21:03:00 Emergency Hilda Gómez [facility] 1..840.114 350.1.13.10 4.2.7.2.686 [id number] [facility] 2022-10-08 11:30:00 2022-10-08 11:30:00 Outpatient R DAREN ZIGGYGWEN DARENSOPHIA [facility] [id number] [facility] 2022-10-02 10:00:00 2022-10-02 10:00:00 Outpatient R SOPHIA [facility] [id number] [facility] 2022-10-01 11:00:00 2022-10-01 11:15:00 Nurse Visit [facility], [facility] 1.2.840.114 350.1.13.10 4.2.7.2.686 [id number] 134 [id number] [facility] 2022-10-01 11:00:00 2022-10-01 11:00:00 Outpatient R SOPHIA [facility] [id number] [facility] 2022-09-18 08:30:00 2022-09-18 09:16:33 Outpatient R SOPHIA [facility] [id number] [facility] 2022-09-18 08:30:00 2022-09-18 09:16:33 [facility] 1..840.114 350.1.13.10 4.2.7.2.686 [id number] [facility] 2022-08-18 16:00:00 2022-08-18 16:00:00 Outpatient PERLA FOUNTAIN [facility] [id number] [facility] 2022-07-14 10:30:00 2022-07-14 17:06:10 Outpatient PERLA [facility] [id number] [facility] 2022-07-14 10:30:00 2022-07-14 17:06:10 [facility] 1.2.840.114 350.1.13.10 4.2.7.2.686 [id number] [facility] 2022-05-26 15:45:00 2022-05-26 17:28:44 Office Visit Perla Zavaleta [facility] 1..840.114 350.1.13.10 4.2.7.2.686 [id number] [facility] 2022-05-26 15:45:00 2022-05-26 17:28:44 Outpatient R PERLA ZAVALETA [facility] [id number] [facility] 2022-05-26 15:45:00 2022-05-26 17:28:44 Outpatient PERLA [facility] [id number] [facility] 2022-05-26 15:45:00 2022-05-26 15:45:00 Outpatient R PERLA ZAVALETA [facility] [id number] [facility] 2022-05-26 00:00:00 2022-05-26 00:00:00 Orders Only Doctor Unassigned, [place] [facility] 1..840.114 350.1.13.10 4.2.7.2.686 [id number] [facility] 2022-05-09 16:46:00 2022-05-09 21:14:00 Emergency [place] 1.2.840.114 350.1.13.10 4.2.7.2.686 [id number] [facility] 2022-05-09 11:13:00 2022-05-09 15:36:00 Emergency X Latosha SANCHEZ [facility] ERT [id number] [facility] 2022-05-09 11:13:00 2022-05-09 15:36:00 Emergency Latosha Sanchez [facility] 1..840.114 350.1.13.10 4.2.7.2.686 [id number] [facility] 2022-05-09 11:13:00 2022-05-09 15:36:00 Emergency X Latosha SANCHEZ [facility] ERT [id number] [facility] 2022-04-29 15:58:00 2022-04-29 17:59:00 Emergency X PERLA ROBLES [facility] ERT [id number] [facility] 2022-04-29 15:58:00 2022-04-29 17:59:00 Emergency Perla Robles [facility] 1.2840.114 350.1.13.10 4.2.7.2.686 [id number] [facility] 2022-04-23 14:02:00 2022-04-23 15:29:00 Emergency X Latosha SANCHEZ [facility] ERT [id number] [facility] 2022-04-23 14:02:00 2022-04-23 15:29:00 Emergency Latosha Sanchez Lesvia [facility] 1.20.114 350.1.13.10 4.2.7.2.686 [id number] [facility] 2022-01-21 13:30:00 2022-01-21 14:09:37 Office Visit Kadie Rock [facility] PROFESS[facility] 1.20.114 350.1.13.10 4.2.7.2.686 [id number] [facility] 2022-01-21 13:30:00 2022-01-21 14:09:37 Outpatient R ESVIN ROCKN [facility] [id number] [facility] 2022-01-21 13:30:00 2022-01-21 13:30:00 Outpatient R KADIE ROCK [facility] [id number] [facility] 2022-01-21 00:00:00 2022-01-21 00:00:00 Telephone Kadie Rock [facility] 1.2840.114 350.1.13.10 4.2.7.2.686 [id number] 134 [id number] [facility] 2022-01-16 19:19:00 2022-01-16 19:22:00 Emergency X KEERTHI, GERALD [facility] ERT [id number] [facility] 2022-01-16 19:19:00 2022-01-16 19:22:00 Emergency Keerthi, Gerald B [facility] 1.2840.114 350.1.13.10 4.2.7.2.686 [id number] [facility] 2022-01-16 19:19:00 2022-01-16 19:22:00 Emergency X KEERTHI, GERALD [facility] ERT [id number] [facility] 2022-01-16 19:19:00 2022-01-16 19:22:00 Emergency X KEERTHI, GERALD [facility] ERT [id number] [facility] 2021-11-26 13:04:00 2021-11-26 14:50:00 Emergency X YAMILKA DE JESUS [facility] ERT [id number] [facility] 2021-11-26 13:04:00 2021-11-26 14:50:00 Emergency Yamilka De Jesus S [facility] 1.2840.114 350.1.13.10 4.2.7.2.686 [id number] [facility] 2021-11-26 13:04:00 2021-11-26 14:50:00 Emergency X YAMILKA DE JESUS [facility] ERT [id number] [facility] 2021-11-13 00:00:00 2021-11-13 00:00:00 Telephone Kadie Rock [facility] 1.840.114 350.1.13.10 4.2.7.2.686 [id number] [facility] 2021-11-07 13:45:00 2021-11-07 14:00:00 Private Duty Nurse Visit Moses, Radha Lab Main Kadie Rock [facility] 1.2.840.114 350.1.13.10 4.2.7.2.686 [id number] [facility] 2021-11-07 13:45:00 2021-11-07 13:45:00 Outpatient R KADIE ROCK [facility] [id number] [facility] 2021-11-04 00:00:00 2021-11-04 00:00:00 Telephone Kadie Rock [facility] 1.840.114 350.1.13.10 4.2.7.2.686 [id number] [facility] 2021-10-31 13:30:00 2021-10-31 14:08:32 Outpatient R KADIE ROCK [facility] [id number] [facility] 2021-10-31 13:30:00 2021-10-31 14:08:32 Office Visit Kadie Rock [facility] 1.840.114 350.1.13.10 4.2.7.2.686 [id number] [facility] 2021-10-31 13:30:00 2021-10-31 13:30:00 Outpatient R KADIE ROCK [facility] [id number] [facility] 2021-09-27 15:30:00 2021-09-27 17:19:02 Outpatient R KADIE ROCK [facility] [id number] [facility] 2021-09-27 15:30:00 2021-09-27 17:19:02 Office Visit Kadie Rock [facility] 1..840.114 350.1.13.10 4.2.7.2.686 [id number] [facility] 2021-09-27 15:30:00 2021-09-27 17:19:02 Outpatient R KADIE ROCK [facility] [id number] [facility] 2021-09-27 00:00:00 2021-09-27 00:00:00 Telephone Pranav Kadie [facility] 1.2.840.114 350.1.13.10 4.2.7.2.686 [id number] 134 [id number] [facility] 2021-09-27 00:00:00 2021-09-27 00:00:00 Orders Only Doctor Unassigned, [place] [facility] 1.2.840.114 350.1.13.10 4.2.7.2.686 [id number] [facility] 2021-09-12 00:00:00 2021-09-12 00:00:[address] [facility] 1.2840.114 350.1.13.10 4.2.7.2.686 [id number] 134 [id number] [facility] 2021-09-10 13:00:00 2021-09-10 13:00:00 Outpatient R KADIE ROCK [facility] [id number] [facility] 2021-09-09 15:15:00 2021-09-09 15:51:16 Outpatient R KADIE ROCK [facility] [id number] [facility] 2021-09-09 15:13:19 2021-09-09 15:51:16 Routine Visit [facility] 1.2.0.114 350.1.13.10 4.2.7.2.686 [id number] [facility] 2021-09-04 13:25:52 2021-09-04 13:34:15 Nurse Visit Nurse, Lkj [facility] 1.2.840.114 350.1.13.10 4.2.7.2.686 [id number] [facility] 2021-09-04 13:00:00 2021-09-04 13:34:15 Outpatient R KADIE ROCK [facility] [id number] [facility] 2021-08-23 11:00:00 2021-08-23 11:17:16 Outpatient R KJ GALLAGHER [facility] [id number] [facility] 2021-08-23 10:53:34 2021-08-23 11:17:16 Nurse Visit Nurse, [facility] Kj Gallagher Gary [facility] 1.2.840.114 350.1.13.10 4.2.7.2.686 [id number] [facility] 2021-08-15 09:58:00 2021-08-18 12:30:00 In[facility] [id number] 2021-08-15 09:58:00 2021-08-18 12:30:00 Hospital Encounter Pranav Kadie [facility] 1.2.840.114 350.1.13.10 4.2.7.2.686 [id number] [facility] 2021-08-18 00:00:00 2021-08-18 00:00:00 Telephone Pranav Kadie [facility] 1.2840.114 350.1.13.10 4.2.7.2.686 [id number] 134 [id number] [facility] 2021-08-16 20:03:10 2021-08-16 20:03:10 Anesthesia Event Kanu Mercado [facility] 1.2.840.114 350.1.13.10 4.2.7.2.686 [id number] [id number] [facility] 2021-08-16 07:16:00 2021-08-16 14:08:00 Anesthesia Event Drake Gallardo David K [facility] 1.2.840.114 350.1.13.10 4.2.7.2.686 [id number] [facility] 2021-08-16 00:00:00 2021-08-16 00:00:00 Surgery Kadie Rock [facility] 1.2840.114 350.1.13.10 4.2.7.2.686 [id number] [id number] [facility] 2021-08-15 08:04:05 2021-08-15 09:03:46 Routine Visit Kadie Rock [facility] 1.20.114 350.1.13.10 4.2.7.2.686 [id number] 134 [id number] [facility] 2021-08-15 08:00:00 2021-08-15 09:03:46 Outpatient R KADIE ROCK [facility] [id number] [facility] 2021-08-09 14:28:40 2021-08-09 14:43:40 Private Duty Nurse Visit Pob, [facility] Main Pranav Kadie [facility] 1.0.114 350.1.13.10 4.2.7.2.686 [id number] [facility] 2021-08-09 11:28:18 2021-08-09 14:10:27 Routine Visit Kadie Rock [facility] 1.2840.114 350.1.13.10 4.2.7.2.686 [id number] 134 [id number] [facility] 2021-08-09 11:15:00 2021-08-09 14:10:27 Outpatient R KADIE ROCK [facility] [id number] [facility] 2021-08-09 00:00:00 2021-08-09 00:00:00 Orders Only Doctor Unassigned, [place] [facility] 1.2840.114 350.1.13.10 4.2.7.2.686 [id number] [facility] 2021-08-08 15:15:00 2021-08-08 15:15:00 Outpatient R KADIE ROCK [facility] [id number] [facility] 2021-08-06 15:38:00 2021-08-06 16:45:00 Outpatient P KADIE ROCK [facility] [id number] [facility] 2021-08-06 15:38:00 2021-08-06 16:45:00 Hospital Encounter Kadie Rock [facility] 1.20.114 350.1.13.10 4.2.7.2.686 [id number] [facility] 2021-08-06 00:00:00 2021-08-06 00:00:[address] [facility] 1.20.114 350.1.13.10 4.2.7.2.686 [id number] 134 [id number] [facility] 2021-08-01 13:55:38 2021-08-01 14:36:36 Routine Visit Kadie Rock [facility] 1.2.114 350.1.13.10 4.2.7.2.686 [id number] 134 [id number] [facility] 2021-08-01 13:45:00 2021-08-01 13:45:00 Outpatient R KADIE ROCK [facility] [id number] [facility] 2021-07-29 08:00:00 2021-07-29 08:00:00 Outpatient R KADIE ROCK [facility] [id number] [facility] 2021-07-22 15:32:02 2021-07-22 16:12:55 Nurse Visit Nurse, formerly [facility] Pranav Kadie [facility] 1.2840.114 350.1.13.10 4.2.7.2.686 [id number] 134 [id number] [facility] 2021-07-22 15:30:00 2021-07-22 15:30:00 Outpatient R [facility] [id number] [facility] 2021-07-22 13:34:00 2021-07-22 13:57:40 Routine Visit Kadie Rock [facility] 1.2.840.114 350.1.13.10 4.2.7.2.686 [id number] 134 [id number] [facility] 2021-07-22 00:00:00 2021-07-22 00:00:00 [facility] (Out[facility] 1.2840.114 350.1.13.10 4.2.7.2.686 [id number] 134 [id number] [facility] 2021-07-16 00:00:00 2021-07-16 00:00:00 Telephone Pranav [facility] 1.2840.114 350.1.13.10 4.2.7.2.686 [id number] 134 [id number] [facility] 2021-07-15 11:22:22 2021-07-15 11:59:52 Routine Visit Pranav Kadie [facility] 1.2840.114 350.1.13.10 4.2.7.2.686 [id number] 134 [id number] [facility] 2021-07-15 11:15:00 2021-07-15 11:15:00 Outpatient R [facility] [id number] [facility] 2021-07-14 00:00:00 2021-07-14 00:00:00 Telephone Pranav [facility] 1.2840.114 350.1.13.10 4.2.7.2.686 [id number] 134 [id number] [facility] 2021-07-08 00:00:00 2021-07-08 00:00:[address] [facility] 1..114 350.1.13.10 4.2.7.2.686 [id number] 134 [id number] [facility] 2021-07-05 09:18:21 2021-07-05 09:33:21 Private Duty Nurse Visit Pob, Adc Lab Main Pranav Kadie [facility] 1.114 350.1.13.10 4.2.7.2.686 [id number] 353 [id number] [facility] 2021-07-05 09:15:00 2021-07-05 09:15:00 Outpatient R [facility]IE [facility] [id number] [facility] 2021-07-05 00:00:00 2021-07-05 00:00:00 Orders Only Doctor Unassigned, [place] [facility] 1..114 350.1.13.10 4.2.7.2.686 [id number] 009 [id number] [facility] 2021-07-01 12:55:46 2021-07-01 13:48:40 Routine Visit Kadie Rock [facility] 1.114 350.1.13.10 4.2.7.2.686 [id number] 134 [id number] [facility] 2021-07-01 13:00:00 2021-07-01 13:00:00 Outpatient R [facility]IE [facility] [id number] [facility] 2021-07-01 00:00:00 2021-07-01 00:00:00 Letter (Out) Pranav Kadie [facility] 1.114 350.1.13.10 4.2.7.2.686 [id number] 134 [id number] [facility] 2021-07-01 00:00:00 2021-07-01 00:00:00 Letter (Out) Kadie Rock [facility] 1.2.840.114 350.1.13.10 4.2.7.2.686 [id number] 134 [id number] [facility] 2021-07-01 00:00:00 2021-07-01 00:00:00 Letter (Out) Pranav Kadie [facility] 1.2.840.114 350.1.13.10 4.2.7.2.686 [id number] 134 [id number] [facility] 2021-07-01 00:00:00 2021-07-01 00:00:00 Letter (Out) Pranav Kadie [facility] 1.2.840.114 350.1.13.10 4.2.7.2.686 [id number] 134 [id number] [facility] 2021-06-19 00:00:00 2021-06-19 00:00:00 Telephone Kadie Rock [facility] 1.2.840.114 350.1.13.10 4.2.7.2.686 [id number] 134 [id number] [facility] 2021-06-18 14:22:01 2021-06-18 15:24:05 Routine Visit Kadie Rock [facility] 1.2.840.114 350.1.13.10 4.2.7.2.686 [id number] 134 [id number] [facility] 2021-06-18 14:22:01 2021-06-18 15:24:05 Routine Visit Pranav Kadie [facility] 1.2.840.114 350.1.13.10 4.2.7.2.686 [id number] 134 [id number] [facility] 2021-06-18 14:30:00 2021-06-18 14:30:00 Outpatient R KADIE R[facility] [id number] [facility] 2021-06-18 11:36:41 2021-06-18 11:51:41 Private Duty Nurse Visit Pob, Adc Lab Main Kadie Rock [facility] nal Building 1.2.840.114 350.1.13.10 4.2.7.2.686 [id number] 353 [id number] [facility] 2021-06-18 11:36:41 2021-06-18 11:51:41 Private Duty Nurse Visit Pob, Adc Lab Main Kadie Rock [facility] 1.2.840.114 350.1.13.10 4.2.7.2.686 [id number] 353 [id number] [facility] 2021-06-06 11:21:25 2021-06-06 12:13:40 Routine Visit Kadie Rock [facility] 1.2.840.114 350.1.13.10 4.2.7.2.686 [id number] 134 [id number] [facility] 2021-06-06 11:21:25 2021-06-06 12:13:40 Routine Visit Kadie Rock [facility] 1.2.840.114 350.1.13.10 4.2.7.2.686 [id number] 134 [id number] [facility] 2021-06-06 11:15:00 2021-06-06 11:15:00 Outpatient R [facility]ADIE [facility] [id number] [facility] 2021-05-31 00:00:00 2021-05-31 00:00:00 Orders Only Doctor Unassigned, [place] [facility] 1.2.840.114 350.1.13.10 4.2.7.2.686 [id number] [id number] [facility] 2021-05-09 10:45:00 2021-05-09 10:45:00 Outpatient R KADIE ROCK [facility] [id number] [facility] 2021-04-19 13:51:24 2021-04-19 14:51:24 Private Duty Nurse Visit Ultrasound, Adc [facility] Nomi Giron [facility] 1..840.114 350.1.13.10 4.2.7.2.686 [id number] 134 [id number] [facility] 2021-04-19 14:00:00 2021-04-19 14:00:00 Outpatient P [facility] [id number] [facility] 2021-04-11 13:45:00 2021-04-11 13:45:00 Outpatient R KADIE ROCK [facility] [id number] [facility] 2021-03-29 09:45:00 2021-03-29 09:45:00 Outpatient R KADIE ROCK [facility] [id number] [facility] 2021-03-29 09:04:17 2021-03-29 09:19:17 Private Duty Nurse Visit Pob, Adc Lab Kadie Hendricks [facility] 1..840.114 350.1.13.10 4.2.7.2.686 [id number] 353 [id number] [facility] 2021-03-29 00:00:00 2021-03-29 00:00:00 Orders Only Doctor Unassigned, [place] [facility] 1.2.840.114 350.1.13.10 4.2.7.2.686 [id number] [id number] [facility] 2021-03-14 13:45:00 2021-03-14 13:45:00 Outpatient R KADIE [facility] [id number] [facility] 2021-03-14 00:00:00 2021-03-14 00:00:00 Orders Only Doctor Unassigned, [place] [facility] 1.2.840.114 350.1.13.10 4.2.7.2.686 [id number] [id number] [facility] 2021-02-13 12:30:00 2021-02-13 12:30:00 Outpatient KADIE VICENTE [facility] [id number] [facility] 2021-02-13 12:06:52 2021-02-13 12:21:52 Private Duty Nurse Visit Pob, Adc Lab Main [facility] 1.2.840.114 350.1.13.10 4.2.7.2.686 [id number] 2021-02-13 12:06:52 2021-02-13 12:21:52 Private Duty Nurse Visit [facility], Adc Lab Main Pranav Kadie [facility] 1.2.840.114 350.1.13.10 4.2.7.2.686 [id number] 353 [id number] [facility] 2021-02-13 00:00:00 2021-02-13 00:00:00 Orders Only Doctor Unassigned, [place] [facility] 1.2.840.114 350.1.13.10 4.2.7.2.686 [id number] [id number] 2021-02-13 00:00:00 2021-02-13 00:00:00 Orders Only Doctor Unassigned, [place] [facility] 1.2.840.114 350.1.13.10 4.2.7.2.686 [id number] [id number] [facility] 2021-02-12 13:45:00 2021-02-12 13:45:00 Outpatient KADIE VICENTE [facility] [id number] [facility] 2021-01-22 16:00:00 2021-01-22 16:00:00 Outpatient KADIE VICENTE [facility] [id number] [facility] 2021-01-08 00:00:00 2021-01-08 00:00:00 Orders Only Doctor Unassigned, [place] [facility] 1.2.840.114 350.1.13.10 4.2.7.2.686 [id number] [facility] 2021-01-07 08:30:00 2021-01-07 08:30:00 Outpatient R PRANAV KADIE [facility] [id number] [facility] 2020-06-11 00:00:00 2020-06-11 00:00:00 Letter (Out) Cathleen, [facility] 1.2.840.114 350.1.13.10 4.2.7.2.686 [id number] [facility] 2020-06-11 00:00:00 2020-06-11 00:00:00 Letter (Out) Cathleen, [facility] 1.2.840.114 350.1.13.10 4.2.7.2.686 [id number] 2020-06-08 14:15:00 2020-06-08 14:15:00 Outpatient R UNKNOWN, ATTENDING [facility] [id number] [facility] Results Test Description Test Time Test Comments Results Result Comments Source US GALL BLADDER 15:22:01 EXAM: US GALL BLADDER HISTORY: 19 years-old Female; Provided indication: RUQ abdominal pain,concern for cholecystitis . TECHNIQUE: Limited abdominal ultrasound focused on the gallbladder wasperformed. The main portal vein was evaluated with color Doppler.Bid Writer images were obtained for the record. COMPARISON: None FINDINGS: PANCREAS:The pancreatic head and body display normal echogenicity to the extentvisualized. LIVER:Visualized Parenchyma: The liver parenchyma exhibits normal hepaticechogenicity and echotexture.Portal vein: Hepatopetal flow is present in the main portal vein with PSVof 19.2 cm/s. The MPV measures 0.7 cm. BILE DUCTS:No intra- or extrahepatic biliary dilatation is visualized.The common duct diameter is normal and measures 0.3 cm. GALLBLADDER:No shadowing stones are seen. Comet tail artifact exuding from the anteriorgallbladder wall likely represents focal wall cholesterolosis oradenomyomatosis. The gallbladder is physiologically distended. The gallbladder wall thickness is normal and measures 0.2 cm. Nopericholecystic fluid is visualized.Lilly's sign was not present. OTHER: None. [facility] [id number] 13:13:27* Test Item Value Reference Range Interpretation Comme nts LIPASE (test code = 9335472832) 53 U/L 0-220 Lab Interpretation (test cod e = 67052-3) Normal [facility] [id number] 13:03:04* Test Item Value Reference Range Interpretation Comme nts WBC (test code = 6690-2) 10.52 4.30-11.10 RBC (test code = 789-8) 4.58 3.93-5.25 HGB (test code = 718-7) 13.2 g/dL 11.6-15.0 HCT (test code = 4544-3) 40.4 % 35.7-45.2 MCV (test code = 787-2) 88.2 fL 80.6-95.5 MCH (test code = 785-6) 28.8 pg 25.9-32.8 MCHC (test code = 786-4) 32.7 g/dL 31.6-35.1 RDW-SD (test code = 31108-3) 41.1 fL 39.0-49.9 RDW-CV (test code = 788-0) 12.7 % 12.0-15.5 PLT (test code = 777-3) 245 166-358 MPV (test code = 76117-3) 10.8 fL 9.5-12.9 NRBC/100 WBC (test code = 3487207517) 0.0 0.0-10.0 NRBC x10^3 (test code = 1056051390) See_Comment [Automated messa ge] The system which generated this result transmitted reference range: 10*3/?L. The reference range was not used to interpret this result as normal/abnormal. GRAN MAT (NEUT) % (test code = 770-8) 63.2 % IMM GRAN % (test code = 6779753456) 1.20 % LYMPH % (test code = 736-9) 26.0 % MONO % (test code = 5905-5) 7.5 % EOS % (test code = 713-8) 1.5 % BASO % (test code = 706-2) 0.6 % GRAN MAT x10^3(ANC) (test code = 5085521864) 6.65 10*3/uL 1.88-7.09 IMM GRAN x10^3 (test code = 3515849717) 0.13 10*3/uL 0.00-0.06 H LYMPH x10^3 (test code = 731-0) 2.73 10*3/uL 1.32-3.29 MONO x10^3 (test code = 742-7) 0.79 10*3/uL 0.33-0.92 EOS x10^3 (test code = 711-2) 0.16 10*3/uL 0.03-0.39 BASO x10^3 (test code = 704-7) 0.06 10*3/uL 0.01-0.07 Lab Interpretation (test code = 97994-7) Abnormal [facility] [id number] 12:50:00* Test Item Value Reference Range Interpretation Comme nts POCT PREG (test code = 1605) Negative On board controls acceptable with C Line (test code = 3574) Yes POCT PREG LOT # (test code = 3575) [id number] POCT PREG TEST DATE ( test code = 3576) 2025-10-17 Lab Interpretation (test cod e = 68774-7) Normal [facility] 1 [id number] 18:13:30HISTORY: Fever, cough, congestion. TECHNIQUE: Portable AP view of the chest is obtained. Comparisonmade with05/09/2022 study. FINDINGS: Minimal congestion noted in the central parahilar lungs, slightlymore on the left side. Acute pneumonia. No pneumothorax or pleural effusiondetected. Cardiac size is within normal limits. CONCLUSIONS: Bilateral parahilar/peribronchial congestion, consistent withviral infection.[facility] [id number] 19:39:00* Test Item Value Reference Range Interpretation Comme nts POCT PREG (test code = 1605) Negative On board controls acceptable with C Line (test code = 3574) Yes POCT PREG LOT # (test code = 3575) POCT PREG TEST DATE ( test code = 3576) [facility] [id number] 19:39:00* Test Item Value Reference Range Interpretation Comme nts POCT PREG (test code = 1605) Negative On board controls acceptable with C Line (test code = 3574) Yes POCT PREG LOT # (test code = 3575) POCT PREG TEST DATE ( test code = 3576) [facility] (D) IMMUNE [id number] 19:53:18* Test Item Value Reference Range Interpretation Comme nts RHIG CANDIDATE? (test code = 5188) No- see comment Patient is not a candidate for RhIg- Patient is Rh Positive.Performed at [facility] Blood [address] Free: [phone] No. [id number] [facility] (D) IMMUNE [id number] 19:53:18* Test Item Value Reference Range Interpretation Comme nts RHIG CANDIDATE? (test code = 5188) No- see comment Patient is not a candidate for RhIg- Patient is Rh Positive.Performed at [facility] Blood [address] [place], [place] [id number] Free: [phone] No. [id number] [facility] (D) IMMUNE [id number] 19:53:18* Test Item Value Reference Range Interpretation Comme nts RHIG CANDIDATE? (test code = 5188) No- see comment Patient is not a candidate for RhIg- Patient is Rh Positive.Performed at [facility] Blood [address] [place], [place] [address]Toll Free: [phone] No. [id number] [facility] [id number] 13:11:00 Drake Gallardo, CHEMICAL LIBRARIAN ? ? 01/06/2024 ?8:32 AM Central Neuraxial Block Date/Time: 01/06/2024 8:11 AMPerformed by: Drake Gallardo CRNAAuthorized by: Alissa Neely MD ?Reason for Block: Surgicalanesthesia, OB request and Patient requestStaff: ?Anesthesiologist: Alissa Neely MD ?Resident/CHEMICAL LIBRARIAN: Drake Gallardo CRNA ?Performed by: resident/CRNAPreanesthetic Checklist: patient identified, IV checked, risks and benefits explained, monitors and equipment checked, timeout performed, pre-op evaluation, surgical consent, site marked, ob/surgical consent approval, ob/surgical consent verified and anesthesia consentProcedure: ?Type of Neuraxial: Spinal ? Sterility Prep cap, drape, gloves, hand hygiene and mask ? ?Sedation Level no sedation ?Patient Position: sitting ?Prep: Betadine ? ?Monitoring: continuous pulse ox, heart rate and NIBP ?Location: lumbar (1-5) ?Lumbar: L3-L4 ?Approach: midline ? ?Technique: single shot ?Guidance with: landmark technique}Epidural/Spinal [place] and/or Catheter: ?Epidural/Spinal Kit: BBraun ?Needle Type: Miriam ?Needle Gauge: 25 G ?Needle Length:3.5 in (8.89 cm) ?Needle Insertion Depth: 5 ?Catheter Type: none ?Number of Attempts: 1Assessment: ?Block Outcome: successful block and patient tolerated procedure well ? ?Procedure Assessment: patient tolerated procedure well with [facility] - [facility]CE [id number] 12:13:00* Test Item Value Reference Range Interpretation Comme nts ABO & RH (test code = 20) A POSITIVE IAT (test code = 1185) Negative [facility] and Screen - ONCE [id number] 12:13:00 * Test Item Value Reference Range Interpretation Comme nts ABO & RH (test code = 20) A POSITIVE IAT (test code = 1185) Negative [facility] and Screen - ONCE [id number] 12:13:00 * Test Item Value Reference Range Interpretation Comme nts ABO & RH (test code = 20) A POSITIVE IAT (test code = 1185) Negative [facility] or Shauna Sutton - [id number] 07:41:01* Test Item Value Reference Range Interpretation Comme nts RPR (Qualitative) (test code = 79907-2) Nonreactive Nonreactive Lab Interpretation (test cod e = 29767-0) Normal [facility] B Surface [id number] 00:13:49 * Test Item Value Reference Range Interpretation Comme nts HBsAg Semi-Quantitative (carlyle t code = 5195-3) 0.06 Negative [facility]2 Ag-Ab with [id number] 19:48:08* Test Item Value Reference Range Interpretation Comme nts HIV Semi-quantitative (test code = 67351-0) 0.07 Negative ANTONIO (test code = ANTONIO) Non-reactive for HIV-1 antigen and HIV-1/HIV-2 antibodies. ?No laboratory evidence of HIV infection. ?Repeat in 2-4 weeks if acute HIV infection is suspected. [facility] DallasFetal Non-Stress [id number] 15:17:31NST performed.Indication: Preeclampsia without SFFHR: 130 reactive and reassuringToco: 1 noted only. ?[facility] DallasPO[facility] Urinalysis w/o Specific [id number] 14:52:00* Test Item Value Reference Range Interpretation Comme nts POCT PH U (test code = 3254) n/a 5-8 POCT U LEUK EST (test code = 3263) n/a Negative - Negative POCT U NIT (test code = 3262) n/a Negative - Negati ve POCT U PROT (test code = 3259) negative Negative - Negat jerod POCT U GLU (test code = 3256) negative Negative - Negati ve POCT U KETONE (test code = 3258) n/a Negative - Neg ative POCT U BLD (test code = 3257) n/a Negative - Negati ve [facility] DallasAD OR SHAUNA ONLY - [id number] 06:38:57* Test Item Value Reference Range Interpretation Comme nts RPR (Qualitative) (test code = 82522-5) Nonreactive Nonreactive Lab Interpretation (test cod e = 24623-2) Normal [facility] B Surface [id number] 20:47:40 * Test Item Value Reference Range Interpretation Comme nts HBsAg Semi-Quantitative (carlyle t code = 5195-3) 0.04 Negative [facility]/2 Ag-Ab with [id number] 14:09:56* Test Item Value Reference Range Interpretation Comme nts HIV Semi-quantitative (test code = 56025-7) 0.10 Negative ANTONIO (test code = ANTONIO) Non-reactive for HIV-1 antigen and HIV-1/HIV-2 antibodies. ?No laboratory evidence of HIV infection. ?Repeat in 2-4 weeks if acute HIV infection is suspected. [facility] Dallas[facility] and Screen - ONCE [id number] 13:13:00 * Test Item Value Reference Range Interpretation Comme nts ABO & RH (test code = 20) A POSITIVE IAT (test code = 1185) Negative [facility] Urinalysis w/o Specific [id number] 19:46:00* Test Item Value Reference Range Interpretation Comme nts POCT PH U (test code = 3254) N/A 5-8 POCT U LEUK EST (test code = 3263) N/A Negative - Negative POCT U NIT (test code = 3262) N/A Negative - Negati ve POCT U PROT (test code = 3259) Negative Negative - Negat jerod POCT U GLU (test code = 3256) Negative Negative - Negati ve POCT U KETONE (test code = 3258) N/A Negative - Neg ative POCT U BLD (test code = 3257) N/A Negative - Negati ve [facility] Dallas[facility] with [id number] 01:32:45* Test Item Value Reference Range Interpretation Comme nts WBC (test code = 6690-2) 10.53 4.30-11.10 RBC (test code = 789-8) 3.69 3.93-5.25 L HGB (test code = 718-7) 10.2 g/dL 11.6-15.0 L HCT (test code = 4544-3) 30.4 % 35.7-45.2 L MCV (test code = 787-2) 82.4 fL 80.6-95.5 MCH (test code = 785-6) 27.6 pg 25.9-32.8 MCHC (test code = 786-4) 33.6 g/dL 31.6-35.1 RDW-SD (test code = 25588-6) 36.5 fL 39.0-49.9 L RDW-CV (test code = 788-0) 12.2 % 12.0-15.5 PLT (test code = 777-3) 249 166-358 MPV (test code = 35467-8) 11.2 fL 9.5-12.9 NRBC/100 WBC (test code = 7140351683) 0.0 0.0-10.0 NRBC x10^3 (test code = 9452652398) See_Comment [Automated messa ge] The system which generated this result transmitted reference range: 10*3/?L. The reference range was not used to interpret this result as normal/abnormal. GRAN MAT (NEUT) % (test code = 770-8) 74.1 % IMM GRAN % (test code = 4835393660) 0.70 % LYMPH % (test code = 736-9) 17.2 % MONO % (test code = 5905-5) 6.9 % EOS % (test code = 713-8) 0.7 % BASO % (test code = 706-2) 0.4 % GRAN MAT x10^3(ANC) (test code = 8393901451) 7.81 10*3/uL 1.88-7.09 H IMM GRAN x10^3 (test code = 6867599047) 0.07 10*3/uL 0.00-0.06 H LYMPH x10^3 (test code = 731-0) 1.81 10*3/uL 1.32-3.29 MONO x10^3 (test code = 742-7) 0.73 10*3/uL 0.33-0.92 EOS x10^3 (test code = 711-2) 0.07 10*3/uL 0.03-0.39 BASO x10^3 (test code = 704-7) 0.04 10*3/uL 0.01-0.07 Lab Interpretation (test code = 44074-2) Abnormal [facility] METABOLIC PANEL (NA, K, CL, CO2, GLUCOSE, BUN, CREATININE, CA)2023-12-13 02:55:11* Test Item Value Reference Range Interpretation Comme nts NA (test code = 3927889206) 137 mmol/L 135-145 K (test code = 7111618624) 3.3 mmol/L 3.5-5.0 L CL (test code = 4180583619) 107 mmol/L 98-108 CO2 TOTAL (test code = 6070540851) 27 mmol/L 23-31 AGAP (test code = 8952467688) 3 2-16 BUN (test code = 8446265981) 2 mg/dL 7-23 L GLUCOSE (test code = 3682279462) 83 mg/dL 70-110 CREATININE (test code = 2160-0) 0.33 mg/dL 0.50-1.04 L CALCIUM (test code = 8810251738) 8.9 mg/dL 8.6-10.6 eGFR (test code = 39978-5) 152.4 mL/min/1.73m2 CKD-EPI eGFR (2020). Assuming creatinine has been stable day-to-day for at least three months, the eGFR indicates Category G1 (>= 90 mL/min/1.73 m2) Lab Interpretation (test code = 12786-0) Abnormal [facility] METABOLIC PANEL (NA, K, CL, CO2, GLUCOSE, BUN, CREATININE, CA)2023-12-13 02:55:11* Test Item Value Reference Range Interpretation Comme nts NA (test code = 8046340170) 137 mmol/L 135-145 K (test code = 6821211799) 3.3 mmol/L 3.5-5.0 L CL (test code = 7827919385) 107 mmol/L 98-108 CO2 TOTAL (test code = 0320259013) 27 mmol/L 23-31 AGAP (test code = 0834199802) 3 2-16 BUN (test code = 5054778898) 2 mg/dL 7-23 L GLUCOSE (test code = 0180031970) 83 mg/dL 70-110 CREATININE (test code = 2160-0) 0.33 mg/dL 0.50-1.04 L CALCIUM (test code = 8936440642) 8.9 mg/dL 8.6-10.6 eGFR (test code = 73331-1) 152.4 mL/min/1.73m2 CKD-EPI eGFR (2020). Assuming creatinine has been stable day-to-day for at least three months, the eGFR indicates Category G1 (>= 90 mL/min/1.73 m2) Lab Interpretation (test code = 16303-1) Abnormal [facility] WITH [id number] 02:37:08* Test Item Value Reference Range Interpretation Comme nts WBC (test code = 6690-2) 9.70 4.30-11.10 RBC (test code = 789-8) 3.72 3.93-5.25 L HGB (test code = 718-7) 10.4 g/dL 11.6-15.0 L HCT (test code = 4544-3) 31.3 % 35.7-45.2 L MCV (test code = 787-2) 84.1 fL 80.6-95.5 MCH (test code = 785-6) 28.0 pg 25.9-32.8 MCHC (test code = 786-4) 33.2 g/dL 31.6-35.1 RDW-SD (test code = 70471-2) 37.7 fL 39.0-49.9 L RDW-CV (test code = 788-0) 12.3 % 12.0-15.5 PLT (test code = 777-3) 214 166-358 MPV (test code = 10175-0) 11.0 fL 9.5-12.9 NRBC/100 WBC (test code = 1763902651) 0.0 0.0-10.0 NRBC x10^3 (test code = 6277355928) See_Comment [Automated [email or web address]] The system which generated this result transmitted reference range: 10*3/?L. The reference range was not used to interpret this result as normal/abnormal. GRAN MAT (NEUT) % (test code = 770-8) 81.2 % IMM GRAN % (test code = 2803448855) 0.50 % LYMPH % (test code = 736-9) 8.5 % MONO % (test code = 5905-5) 8.9 % EOS % (test code = 713-8) 0.5 % BASO % (test code = 706-2) 0.4 % GRAN MAT x10^3(ANC) (test code = 2346597022) 7.88 10*3/uL 1.88-7.09 H IMM GRAN x10^3 (test code = 2943026425) 0.05 10*3/uL 0.00-0.06 LYMPH x10^3 (test code = 731-0) 0.82 10*3/uL 1.32-3.29 L MONO x10^3 (test code = 742-7) 0.86 10*3/uL 0.33-0.92 EOS x10^3 (test code = 711-2) 0.05 10*3/uL 0.03-0.39 BASO x10^3 (test code = 704-7) 0.04 10*3/uL 0.01-0.07 Lab Interpretation (test code = 95721-8) [facility]ase([id number] 00:43:06* Test Item Value Reference Range Interpretation Comme nts ALTv (test code = 1742-6) 10 U/L 5-35 Lab Interpretation (test cod e = 39492-2) Normal [facility] Dallas[facility] (Aspartate Amino Transfer)2023-12-12 00:43:05* Test Item Value Reference Range Interpretation Comme nts AST(SGOT) (test code = 8175535766) 21 U/L 13-40 Lab Interpretation (test cod e = 84578-0) Normal [facility] DallasCreatinine2024-03-02 00:42:50* Test Item Value Reference Range Interpretation Comme nts CREATININE (test code = 2160-0) 0.33 mg/dL 0.50-1.04 L eGFR (test code = 32255-0) 152.4 mL/min/1.73m2 CKD-EPI eGFR (2020). Assuming creatinine has been stable day-to-day for at least three months, the eGFR indicates Category G1 (>= 90 mL/min/1.73 m2) Lab Interpretation (test code = 61837-6) [facility]normal [facility] Urinalysis w/o Specific [id number] 21:11:00* Test Item Value Reference Range Interpretation Comme nts POCT PH U (test code = 3254) n/a 5-8 POCT U LEUK EST (test code = 3263) n/a Negative - Negative POCT U NIT (test code = 3262) n/a Negative - Negati ve POCT U PROT (test code = 3259) negative Negative - Negat jerod POCT U GLU (test code = 3256) negative Negative - Negati ve POCT U KETONE (test code = 3258) n/a Negative - Neg ative POCT U BLD (test code = 3257) n/a Negative - Negati ve [facility] Urinalysis w/o Specific Cewjzom5287-31-17 19:13:00* Test Item Value Reference Range Interpretation Comme nts POCT PH U (test code = 3254) n/a 5-8 POCT U LEUK EST (test code = 3263) n/a Negative - Negative POCT U NIT (test code = 3262) n/a Negative - Negati ve POCT U PROT (test code = 3259) negative Negative - Negat jerod POCT U GLU (test code = 3256) negative Negative - Negati ve POCT U KETONE (test code = 3258) n/a Negative - Neg ative POCT U BLD (test code = 3257) n/a Negative - Negati ve [facility] Urinalysis w/o Specific Melzgbz1607-10-09 16:55:00* Test Item Value Reference Range Interpretation Comme nts POCT PH U (test code = 3254) na 5-8 POCT U LEUK EST (test code = 3263) na Negative - Negative POCT U NIT (test code = 3262) na Negative - Negative POCT U PROT (test code = 3259) negative Negative - Negative POCT U GLU (test code = 3256) negative Negative - Negative POCT U KETONE (test code = 3258) na Negative - Negative POCT U BLD (test code = 3257) na Negative - Negative ANTONIO (test code = ANTONIO) accurate developme nt and interpretation of all internal controls Lab Interpretation (test code = 92144-2) Normal [facility] Urinalysis w/o Specific Npgmiru1283-66-22 16:55:00* Test Item Value Reference Range Interpretation Comme nts POCT PH U (test code = 3254) na 5-8 POCT U LEUK EST (test code = 3263) na Negative - Negative POCT U NIT (test code = 3262) na Negative - Negative POCT U PROT (test code = 3259) negative Negative - Negative POCT U GLU (test code = 3256) negative Negative - Negative POCT U KETONE (test code = 3258) na Negative - Negative POCT U BLD (test code = 3257) na Negative - Negative ANTONIO (test code = ANTONIO) accurate developme nt and interpretation of all internal controls Lab Interpretation (test code = 64543-6) Normal [facility] DallasGlucose 1 Hour Post Rwprpghq5128-44-20 23:49:24* Test Item Value Reference Range Interpretation Comme nts GLUC 1 HR (test code = 0416298254) 121 mg/dL 120-170 Lab Interpretation (test cod e = 41520-0) Normal [facility] DallasPrenatal Workup, Blood [id number] 22:38:00 * Test Item Value Reference Range Interpretation Comme nts ABO & RH (test code = 20) A Positive IAT (test code = 1185) Negative [facility] DallasPO[facility] Urinalysis w/o Specific Gcghlrh6048-18-73 20:14:00* Test Item Value Reference Range Interpretation Comme nts POCT PH U (test code = 3254) n/a 5-8 POCT U LEUK EST (test code = 3263) n/a Negative - Negative POCT U NIT (test code = 3262) n/a Negative - Negati ve POCT U PROT (test code = 3259) Negative Negative - Negat jerod POCT U GLU (test code = 3256) Negative Negative - Negati ve POCT U KETONE (test code = 3258) n/a Negative - Neg ative POCT U BLD (test code = 3257) n/a Negative - Negati ve [facility] DallasPO[facility] Urinalysis w/o Specific Uaipadr0762-06-17 20:21:00* Test Item Value Reference Range Interpretation Comme nts POCT PH U (test code = 3254) n/a 5-8 POCT U LEUK EST (test code = 3263) n/a Negative - Negative POCT U NIT (test code = 3262) n/a Negative - Negati ve POCT U PROT (test code = 3259) negative Negative - Negat jerod POCT U GLU (test code = 3256) normal Negative - Negati ve POCT U KETONE (test code = 3258) n/a Negative - Neg ative POCT U BLD (test code = 3257) n/a Negative - Negati ve [facility] DallasPO[facility] URINALYSIS W/O SPECIFIC [id number] 22:36:00* Test Item Value Reference Range Interpretation Comme nts POCT PH U (test code = 3254) n/a 5-8 POCT U LEUK EST (test code = 3263) n/a Negative - Negative POCT U NIT (test code = 3262) n/a Negative - Negati ve POCT U PROT (test code = 3259) negative Negative - Negat jerod POCT U GLU (test code = 3256) negative Negative - Negati ve POCT U KETONE (test code = 3258) n/a Negative - Neg ative POCT U BLD (test code = 3257) n/a Negative - Negati ve [facility] DallasComplete Metabolic Mzree6589-05-19 03:00:20* Test Item Value Reference Range Interpretation Comme nts NA (test code = 2058341219) 138 mmol/L 135-145 K (test code = 9657447035) 3.6 mmol/L 3.5-5.0 CL (test code = 5122911592) 102 mmol/L 98-108 CO2 TOTAL (test code = 3426462806) 21 mmol/L 23-31 L AGAP (test code = 6786993156) 15 2-16 BUN (test code = 0508459759) 5 mg/dL 7-23 L GLUCOSE (test code = 5396375224) 85 mg/dL 70-110 CREATININE (test code = 7507867607) 0.41 mg/dL 0.50-1.04 L TOTAL BILI (test code = 1662151754) 0.4 mg/dL 0.1-1.1 CALCIUM (test code = 2436536099) 9.8 mg/dL 8.6-10.6 T PROTEIN (test code = 6627098665) 8.3 g/dL 6.3-8.2 H ALBUMIN (test code = 5875675666) 4.6 g/dL 3.5-5.0 ALK PHOS (test code = 9495581665) 73 U/L 34-122 ALTv (test code = 1742-6) 23 U/L 5-35 AST(SGOT) (test code = 8374609167) 31 U/L 13-40 eGFR (test code = 1848230739) 197.8 mL/min/1.73m2 ANTONIO (test code = ANTONIO) Association of Glomerular Filtration Rate (GFR) and Staging of Kidney Disease* + --+ --+ ------+| GFR (mL/min/1.73 m2) ?| With Kidney Damage ?| ?Without Kidney Damage+ --------+ --------+ +| ?>90 ?| ?Stage one ?| ? Normal ?+ ---+ ---+ -------+| ?60-89 ?| ?Stage two ?| ? Decreased GFR ? + --+ --+ ------+| ?30-59 ?| ?Stage three ?| ? Stage three ? + --+ --+ ------+| ?15-29 ?| ?Stage four ? | ? Stage four ?+ ---+ ---+ -------+| ?<15 (or dialysis) ? ?| ?Stage five ? | ? Stage five ?+ ---+ ---+ -------+ *Each stage assumes the associated GFR level [...] or urine or abnormalities in imaging tests). Lab Interpretation (test code = 38633-4) Abnormal [facility] DallasLipase, [id number] 02:59:40* Test Item Value Reference Range Interpretation Comme nts LIPASE (test code = 1098466618) 56 U/L 0-220 Lab Interpretation (test cod e = 54790-7) Normal [facility] DallasCB with Sxxfrehsgfzh0973-63-62 02:47:00* Test Item Value Reference Range Interpretation Comme nts WBC (test code = 6690-2) 10.05 See_Comment [Automated messa ge] The system which generated this result transmitted reference range: 4.30 - 11.10 10*3/?L. The reference range was not used to interpret this result as normal/abnormal. RBC (test code = 789-8) 4.40 See_Comment [Automated messa ge] The system which generated this result transmitted reference range: 3.93 - 5.25 10*6/?L. The reference range was not used to interpret this result as normal/abnormal. HGB (test code = 718-7) 13.2 g/dL 11.6-15.0 HCT (test code = 4544-3) 38.3 % 35.7-45.2 MCV (test code = 787-2) 87.0 fL 80.6-95.5 MCH (test code = 785-6) 30.0 pg 25.9-32.8 MCHC (test code = 786-4) 34.5 g/dL 31.6-35.1 RDW-SD (test code = 23970-0) 38.8 fL 39.0-49.9 L RDW-CV (test code = 788-0) 12.2 % 12.0-15.5 PLT (test code = 777-3) 265 See_Comment [Automated messa ge] The system which generated this result transmitted reference range: 166 - 358 10*3/?L. The reference range was not used to interpret this result as normal/abnormal. MPV (test code = 57956-4) 11.1 fL 9.5-12.9 NRBC/100 WBC (test code = 5413145122) 0.0 See_Comment [Automated Number 100 ssage] The system which generated this result transmitted reference range: 0.0 - 10.0 /100 WBCs. The reference range was not used to interpret this result as normal/abnormal. NRBC x10^3 (test code = 3703697921) See_Comment [Automated messa ge] The system which generated this result transmitted reference range: 10*3/?L. The reference range was not used to interpret this result as normal/abnormal. GRAN MAT (NEUT) % (test code = 770-8) 71.2 % IMM GRAN % (test code = 4685669612) 0.60 % LYMPH % (test code = 736-9) 19.5 % MONO % (test code = 5905-5) 7.0 % EOS % (test code = 713-8) 1.0 % BASO % (test code = 706-2) 0.7 % GRAN MAT x10^3(ANC) (test code = 2504903934) 7.16 10*3/uL 1.88-7.09 H IMM GRAN x10^3 (test code = 9017918385) 0.06 10*3/uL 0.00-0.06 LYMPH x10^3 (test code = 731-0) 1.96 10*3/uL 1.32-3.29 MONO x10^3 (test code = 742-7) 0.70 10*3/uL 0.33-0.92 EOS x10^3 (test code = 711-2) 0.10 10*3/uL 0.03-0.39 BASO x10^3 (test code = 704-7) 0.07 10*3/uL 0.01-0.07 Lab Interpretation (test code = 07993-7) Abnormal [facility] URINALYSIS W/O SPECIFIC [id number] 16:32:00* Test Item Value Reference Range Interpretation Comme nts POCT PH U (test code = 3254) N/A 5-8 POCT U LEUK EST (test code = 3263) N/A Negative - Negative POCT U NIT (test code = 3262) N/A Negative - Negati ve POCT U PROT (test code = 3259) Negative Negative - Negat jerod POCT U GLU (test code = 3256) Negative Negative - Negati ve POCT U KETONE (test code = 3258) N/A Negative - Neg ative POCT U BLD (test code = 3257) N/A Negative - [facility] [id number] 20:06:00* Test Item Value Reference Range Interpretation Comme nts POCT PH U (test code = 3254) 7 mg/dl 5-8 POCT U LEUK EST (test code = 3263) Trace Negative - Negative POCT U NIT (test code = 3262) Negative Negative - Negati ve POCT U PROT (test code = 3259) Trace Negative - Negat jerod POCT U GLU (test code = 3256) Normal Negative - Negati ve POCT U KETONE (test code = 3258) Negative Negative - Neg ative POCT U BLD (test code = 3257) 250 Negative - Negati ve [facility] URINALYSIS W/O SPECIFIC [id number] 18:10:00* Test Item Value Reference Range Interpretation Comme nts POCT PH U (test code = 3254) n/a 5-8 POCT U LEUK EST (test code = 3263) n/a Negative - Negative POCT U NIT (test code = 3262) n/a Negative - Negati ve POCT U PROT (test code = 3259) trace Negative - Negat jerod POCT U GLU (test code = 3256) negative Negative - Negati ve POCT U KETONE (test code = 3258) n/a Negative - Neg ative POCT U BLD (test code = 3257) n/a Negative - Negati ve [facility] URINALYSIS W/O SPECIFIC [id number] 18:18:00* Test Item Value Reference Range Interpretation Comme nts POCT PH U (test code = 3254) N/A 5-8 POCT U LEUK EST (test code = 3263) N/A Negative - Negative POCT U NIT (test code = 3262) N/A Negative - Negati ve POCT U PROT (test code = 3259) NEGATIVE Negative - Negat jerod POCT U GLU (test code = 3256) NEGATIVE Negative - Negati ve POCT U KETONE (test code = 3258) N/A Negative - Neg ative POCT U BLD (test code = 3257) N/A Negative - Negati ve [facility] URINALYSIS W/O SPECIFIC [id number] 17:10:00* Test Item Value Reference Range Interpretation Comme nts POCT PH U (test code = 3254) n/a 5-8 POCT U LEUK EST (test code = 3263) n/a Negative - N egative POCT U NIT (test code = 3262) n/a Negative - Negati ve POCT U PROT (test code = 3259) neg Negative - Negat jerod POCT U GLU (test code = 3256) neg Negative - Negati ve POCT U KETONE (test code = 3258) n/a Negative - Neg ative POCT U BLD (test code = 3257) n/a Negative - Negati ve [facility] DallasTOTAL BETA HCG [id number] 19:00:52* Test Item Value Reference Range Interpretation Comme nts BETA HCG (test code = 8847167096) 4313.30 See_Comment [Automated [employer]] The system which generated this result transmitted reference range: Non- female and male patients: <5 mIU/mL. The reference range was not used to interpret this result as normal/abnormal. ANTONIO (test code = ANTONIO) Gestational Age ?Range (mIU/mL) 1-10 ?Weeks ?42-89870669-25 Weeks ?14284-25593796-76 Weeks ?0939-52112893-92 Weeks ?0191-310166 Biotin has been reported to cause a negative bias, interpret results relative to patient's use of biotin. [facility]. METABOLIC PANEL (35965)2023-05-25 18:32:32* Test Item Value Reference Range Interpretation Comme nts NA (test code = 3287922900) 138 mmol/L 135-145 K (test code = 4380056453) 4.2 mmol/L 3.5-5.0 CL (test code = 3467134124) 101 mmol/L 98-108 CO2 TOTAL (test code = 1579541317) 28 mmol/L 23-31 AGAP (test code = 6885166753) 9 2-16 BUN (test code = 6935682773) 9 mg/dL 7-23 GLUCOSE (test code = 0324062579) 97 mg/dL 70-110 CREATININE (test code = 7138257127) 0.47 mg/dL 0.50-1.04 L TOTAL BILI (test code = 1988134173) 0.6 mg/dL 0.1-1.1 CALCIUM (test code = 5968037257) 9.5 mg/dL 8.6-10.6 T PROTEIN (test code = 9798202481) 8.5 g/dL 6.3-8.2 H ALBUMIN (test code = 8398482679) 4.8 g/dL 3.5-5.0 ALK PHOS (test code = 8607108553) 71 U/L 34-122 ALTv (test code = 1742-6) 29 U/L 5-35 AST(SGOT) (test code = 8235500310) 33 U/L 13-40 eGFR (test code = 3663137937) 170.7 mL/min/1.73m2 ANTONIO (test code = ANTONIO) Association of Glomerular Filtration Rate (GFR) and Staging of Kidney Disease* + --+ --+ ------+| GFR (mL/min/1.73 m2) ?| With Kidney Damage ?| ?Without Kidney Damage+ --------+ --------+ +| ?>90 ?| ?Stage one ?| ? Normal ?+ ---+ ---+ -------+| ?60-89 ?| ?Stage two ?| ? Decreased GFR ? + --+ --+ ------+| ?30-59 ?| ?Stage three ?| ? Stage three ? + --+ --+ ------+| ?15-29 ?| ?Stage four ? | ? Stage four ?+ ---+ ---+ -------+| ?<15 (or dialysis) ? ?| ?Stage five ? | ? Stage five ?+ ---+ ---+ -------+ *Each stage assumes the associated GFR level [...] or urine or abnormalities in imaging tests). Lab Interpretation (test code = 07733-7) [facility]normal [facility] DallasLIPASE2023-[facility] 18:32:12* Test Item Value Reference Range Interpretation Comme nts LIPASE (test code = 6762827974) 56 U/L 0-220 Lab Interpretation (test cod e = 25435-1) Normal [facility] WITH [id number] 18:19:07* Test Item Value Reference Range Interpretation Comme nts WBC (test code = 6690-2) 7.17 See_Comment [Automated messa ge] The system which generated this result transmitted reference range: 4.30 - 11.10 10*3/?L. The reference range was not used to interpret this result as normal/abnormal. RBC (test code = 789-8) 4.64 See_Comment [Automated messa ge] The system which generated this result transmitted reference range: 3.93 - 5.25 10*6/?L. The reference range was not used to interpret this result as normal/abnormal. HGB (test code = 718-7) 13.9 g/dL 11.6-15.0 HCT (test code = 4544-3) 41.6 % 35.7-45.2 MCV (test code = 787-2) 89.7 fL 80.6-95.5 MCH (test code = 785-6) 30.0 pg 25.9-32.8 MCHC (test code = 786-4) 33.4 g/dL 31.6-35.1 RDW-SD (test code = 10621-7) 41.1 fL 39.0-49.9 RDW-CV (test code = 788-0) 12.5 % 12.0-15.5 PLT (test code = 777-3) 278 See_Comment [Automated messa ge] The system which generated this result transmitted reference range: 166 - 358 10*3/?L. The reference range was not used to interpret this result as normal/abnormal. MPV (test code = 01073-6) 10.3 fL 9.5-12.9 NRBC/100 WBC (test code = 7542539174) 0.0 See_Comment [Automated Number 100 ssage] The system which generated this result transmitted reference range: 0.0 - 10.0 /100 WBCs. The reference range was not used to interpret this result as normal/abnormal. NRBC x10^3 (test code = 9913749555) See_Comment [Automated me ssage] The system which generated this result transmitted reference range: 10*3/?L. The reference range was not used to interpret this result as normal/abnormal. GRAN MAT (NEUT) % (test code = 770-8) 60.9 % IMM GRAN % (test code = 5462698143) 0.40 % LYMPH % (test code = 736-9) 30.1 % MONO % (test code = 5905-5) 6.3 % EOS % (test code = 713-8) 1.5 % BASO % (test code = 706-2) 0.8 % GRAN MAT x10^3(ANC) (test code = 6938527185) 4.36 10*3/uL 1.88-7.09 IMM GRAN x10^3 (test code = 9148954713) 0.03 10*3/uL 0.00-0.06 LYMPH x10^3 (test code = 731-0) 2.16 10*3/uL 1.32-3.29 MONO x10^3 (test code = 742-7) 0.45 10*3/uL 0.33-0.92 EOS x10^3 (test code = 711-2) 0.11 10*3/uL 0.03-0.39 BASO x10^3 (test code = 704-7) 0.06 10*3/uL 0.01-0.07 [facility] [id number] 17:40:00* Test Item Value Reference Range Interpretation Comme nts POCT PREG (test code = 1605) Positive On board controls acceptable with C Line (test code = 3574) Yes POCT PREG LOT # (test code = 3575) [id number] POCT PREG TEST DATE ( test code = 3576) 10/14/2024 Lab Interpretation (test cod e = 78481-2) Normal [facility] [id number] 15:20:00* Test Item Value Reference Range Interpretation Comme nts POCT PREG (test code = 1605) Positive On board controls acceptable with C Line (test code = 3574) Yes POCT PREG LOT # (test code = 3575) POCT PREG TEST DATE ( test code = 3576) [facility]PO[facility] [id number] 15:20:00* Test Item Value Reference Range Interpretation Comme nts POCT PREG (test code = 1605) Positive On board controls acceptable with C Line (test code = 3574) Yes POCT PREG LOT # (test code = 3575) POCT PREG TEST DATE ( test code = 3576) [facility] DallasPROLACTIN2023-04-20 09:12:15* Test Item Value Reference Range Interpretation Comme nts PROLACTIN (test code = 7758478788) 7.3 ng/mL 3.3-26.7 Lab Interpretation (test cod e = 17439-4) Normal [facility] DallasDEHYDROEPIANDROSTERONE ESULQDW0137-90-88 09:12:15* Test Item Value Reference Range Interpretation Comme nts DHEA-S (test code = 7439813662) 2234.3 ng/mL ANTONIO (test code = ANTONIO) Normal Ranges for DHEA SO4 Prepubertal: ? ? 50-995 ng/mLAdult: ? 650-3400 ng/mL Adult levels may decrease with age after age 50. ? Decreased level may be seen in term pregnancies. ? Pubertal is based on physical examination. ? [facility] DallasHCV [id number] 07:01:39* Test Item Value Reference Range Interpretation Comme nts HCV Ab (test code = 26782-9) Negative HCV Semi-Quantitative (test code = 04014-8) 0.03 [facility] DallasHEPATITIS B SURFACE QIEVRGX7276-83-73 06:44:18 * Test Item Value Reference Range Interpretation Comme nts HBsAg Semi-Quantitative (carlyle t code = 5195-3) 0.06 Negative [facility] OR SHAUNA ONLY - [id number] 03:57:58* Test Item Value Reference Range Interpretation Comme nts RPR (Qualitative) (test code = 83764-3) Nonreactive Nonreactive Lab Interpretation (test cod e = 77535-1) Normal [facility] DallasCB WITH [id number] 00:07:19* Test Item Value Reference Range Interpretation Comme nts WBC (test code = 6690-2) 7.75 See_Comment [Automated messa ge] The system which generated this result transmitted reference range: 4.30 - 11.10 10*3/?L. The reference range was not used to interpret this result as normal/abnormal. RBC (test code = 789-8) 4.44 See_Comment [Automated messa ge] The system which generated this result transmitted reference range: 3.93 - 5.25 10*6/?L. The reference range was not used to interpret this result as normal/abnormal. HGB (test code = 718-7) 12.9 g/dL 11.6-15.0 HCT (test code = 4544-3) 38.9 % 35.7-45.2 MCV (test code = 787-2) 87.6 fL 80.6-95.5 MCH (test code = 785-6) 29.1 pg 25.9-32.8 MCHC (test code = 786-4) 33.2 g/dL 31.6-35.1 RDW-SD (test code = 22426-1) 39.5 fL 39.0-49.9 RDW-CV (test code = 788-0) 12.2 % 12.0-15.5 PLT (test code = 777-3) 334 See_Comment [Automated [employer]] The system which generated this result transmitted reference range: 166 - 358 10*3/?L. The reference range was not used to interpret this result as normal/abnormal. MPV (test code = 89969-6) 10.4 fL 9.5-12.9 NRBC/100 WBC (test code = 5613561601) 0.0 See_Comment [Automated me ssage] The system which generated this result transmitted reference range: 0.0 - 10.0 /100 WBCs. The reference range was not used to interpret this result as normal/abnormal. NRBC x10^3 (test code = 1883805208) See_Comment [Automated me ssage] The system which generated this result transmitted reference range: 10*3/?L. The reference range was not used to interpret this result as normal/abnormal. GRAN MAT (NEUT) % (test code = 770-8) 67.4 % IMM GRAN % (test code = 6894649532) 0.30 % LYMPH % (test code = 736-9) 24.9 % MONO % (test code = 5905-5) 5.3 % EOS % (test code = 713-8) 1.3 % BASO % (test code = 706-2) 0.8 % GRAN MAT x10^3(ANC) (test code = 4748875756) 5.23 10*3/uL 1.88-7.09 IMM GRAN x10^3 (test code = 9568794578) 0.00-0.06 LYMPH x10^3 (test code = 731-0) 1.93 10*3/uL 1.32-3.29 MONO x10^3 (test code = 742-7) 0.41 10*3/uL 0.33-0.92 EOS x10^3 (test code = 711-2) 0.10 10*3/uL 0.03-0.39 BASO x10^3 (test code = 704-7) 0.06 10*3/uL 0.01-0.07 [facility] DallasGLYCOSYLATED HEMOGLOBIN (A1C)2023-01-28 22:01:59* Test Item Value Reference Range Interpretation Comme [facility] HGB A1C (test code = 4548-4) 4.7 % 4.0-5.7 ANTONIO (test code = ANTONIO) Reference RangesNormal: <5.7%Prediabetes: 5.7 - 6.4%Diabetes: > 6.5% Lab Interpretation (test code = 54599-0) Normal [facility] DallasHIV 1/2 AG-AB WITH [id number] 21:56:38* Test Item Value Reference Range Interpretation Comme [facility] HIV Semi-quantitative (test code = 85302-0) 0.08 Negative ANTONIO (test code = ANTONIO) Non-reactive for HIV-1 antigen and HIV-1/HIV-2 antibodies. ?No laboratory evidence of HIV infection. ?Repeat in 2-4 weeks if acute HIV infection is suspected. [facility] DallasTHYROID STIMULATING [id number] 21:46:58 * Test Item Value Reference Range Interpretation Comme nts TSH (test code = 0758733900) 0.96 See_Comment [Automated messa ge] The system which generated this result transmitted reference range: 0.45 - 4.70 mIU/L. The reference range was not used to interpret this result as normal/abnormal. Lab Interpretation (test code = 20670-7) Normal [facility] DallasLIPID PANEL (36092)(TOTAL CHOLESTEROL, TRIGLYCERIDES, HDL)2023-01-28 21:19:54* Test Item Value Reference Range Interpretation Comme nts CHOL (test code = 2327269774) 178 mg/dL 120-200 HDL (test code = 7331625391) 56 mg/dL >=50 HDLC RATIO (test code = 3147879852) 3.2 <=4.5 TRIG (test code = 1561081764) 78 mg/dL 30-170 LDL CHOL (test code = 45952-7) 106 mg/dL <=160 VLDL (test code = 9330538418) 16 mg/dL 5-60 Lab Interpretation (test cod e = 28037-8) Normal [facility] DallasCOMP. METABOLIC PANEL (18818)2023-01-28 21:19:33* Test Item Value Reference Range Interpretation Comme nts NA (test code = 7464984970) 141 mmol/L 135-145 K (test code = 6444273482) 4.3 mmol/L 3.5-5.0 CL (test code = 5947210095) 103 mmol/L 98-108 CO2 TOTAL (test code = 1768562685) 26 mmol/L 23-31 AGAP (test code = 2210631228) 12 2-16 BUN (test code = 2171918633) 11 mg/dL 7-23 GLUCOSE (test code = 9700001693) 78 mg/dL 70-110 CREATININE (test code = 1892181800) 0.51 mg/dL 0.50-1.04 TOTAL BILI (test code = 6376180962) 0.9 mg/dL 0.1-1.1 CALCIUM (test code = 5630426885) 9.8 mg/dL 8.6-10.6 T PROTEIN (test code = 3868023899) 7.9 g/dL 6.3-8.2 ALBUMIN (test code = 3943150066) 4.9 g/dL 3.5-5.0 ALK PHOS (test code = 8994677823) 74 U/L 34-122 ALTv (test code = 1742-6) 20 U/L 5-35 AST(SGOT) (test code = 3015053159) 25 U/L 13-40 eGFR (test code = 4027312194) 155.4 mL/min/1.73m2 ANTONIO (test code = ANTONIO) Association of [...] or urine or abnormalities in imaging tests). [facility] [id number] 16:52:00* Test Item Value Reference Range Interpretation Comme [facility] POCT PREG (test code = 1605) Negative On board controls acceptable with C Line (test code = 3574) Yes POCT PREG LOT # (test code = 3575) POCT PREG TEST DATE ( test code = 3576) [facility] [id number] 16:52:00* Test Item Value Reference Range Interpretation Comme [facility] POCT PREG (test code = 1605) Negative On board controls acceptable with C Line (test code = 3574) Yes POCT PREG LOT # (test code = 3575) POCT PREG TEST DATE ( test code = 3576) [facility] [id number] 02:57:00* Test Item Value Reference Range Interpretation Comme nts POCT PREG (test code = 1605) neg On board controls acceptable with C Line (test code = 3574) yes POCT PREG LOT # (test code = 3575) [id number] POCT PREG TEST DATE ( test code = 3576) 01/10/2024 Lab Interpretation (test cod e = 91519-3) Normal [facility] [id number] 17:05:00* Test Item Value Reference Range Interpretation Comme nts POCT PREG (test code = 1605) Negative On board controls acceptable with C Line (test code = 3574) Yes POCT PREG LOT # (test code = 3575) POCT PREG TEST DATE ( test code = 3576) [facility] [id number] 15:08:00* Test Item Value Reference Range Interpretation Comme nts POCT PREG (test code = 1605) Negative On board controls acceptable with C Line (test code = 3574) Yes POCT PREG LOT # (test code = 3575) POCT PREG TEST DATE ( test code = 3576) [facility] [id number] 15:08:00* Test Item Value Reference Range Interpretation Comme nts POCT PREG (test code = 1605) Negative On board controls acceptable with C Line (test code = 3574) Yes POCT PREG LOT # (test code = 3575) POCT PREG TEST DATE ( test code = 3576) [facility] History and Physical Notes Date/Time Note Provider Source 2024-01-12 18:01:21 TRIAGE HISTORY & PHYSICAL IDENTIFYING DATA Laina Ca is 18 year old, /White, Unknown, female with ROBINSON Not found.. : 2005 Primary Care Physician: Lorenzo Hawk CHIEF COMPLAINT Headaches HISTORY OF PRESENT ILLNESS Laina Ca is a 18 year old female is 6 days s/p RLTCS presents with persistent headaches despite round the clock ibuprofen. Headache is currently mild. Reports that BP at home was 140's/100's Denies visual changes or RUQ pain or epigastric pain She was seen in the office today and sent over for further evaluation and MgSO4 was complicated with preeclampsia with SF, diagnosed at 37wks PAST OBSTETRIC HISTORY OB History Para Term AB Living 2 2 2 2 SAB IAB Ectopic Multiple Live Births 0 2 # Outcome Date GA Lbr Eder/2nd Weight Sex Delivery Anes PTL Lv 2 Term 01/06/24 37w0d 3140 g M , L Spinal N JENNIFER 1 Term 08/16/21 37w2d 2910 g M , L EPI N JENNIFER PAST MEDICAL HISTORY Problem list: Patient Active Problem List Diagnosis Date Noted headache 01/12/2024 S/P section 01/12/2024 Preeclampsia in period 12/30/2023 Two vessel umbilical cord in [place]cke[place] , antepartum 10/30/2023 Obesity (BMI 30-39.9) 08/31/2023 History of pre-eclampsia in prior , currently 07/02/2023 Previous section complicating 07/02/2023 BMI 30.0-30.9,adult 11/24/2022 High-risk in third trimester 01/07/2021 Operations: Past Surgical History: Procedure Laterality Date SECTION N/A 08/16/2021 Surgeon: Kadie Rock MD; Location: [facility] SECTION N/A 01/06/2024 Surgeon: Valentine Montes MD; Location: [facility] Past Medical History: Diagnosis Date Abnormal maternal glucose tolerance, antepartum 06/18/2021 Abnormal uterine bleeding 11/24/2022 Anemia of mother in , antepartum 06/18/2021 Galactorrhea 02/04/2023 PCOS (polycystic ovarian syndrome) 03/19/2023 PCOS (polycystic ovarian syndrome) 03/19/2023 Peritonsillar abscess 05/27/2022 Added automatically from request for surgery [id number] Possible exposure to STD 11/24/2022 Recurrent tonsillitis 05/27/2022 Severe preeclampsia, third trimester 08/15/2021 CURRENT HEALTH STATUS Medications: Current Facility-Administered Medications Medication Dose Route Frequency Last Rate Last Admin hgrkkajjpa-ocfumtlwxwocx-ycic (ESGIC) 50-325-40 mg tablet 1 tablet 1 tablet Oral Q4HPRN calcium gluconate 100 mg/mL (10%) injection 1,000 mg 1,000 mg Slow IV Push PRN - SEE INSTRUCTIONS D5W-LR IV infusion 1,000 mL 1,000 mL IV Infusion CONTINUOUS 75 mL/hr at 01/12/24 181 1,000 mL at 01/12/24 181 ibuprofen (IBU) tablet 600 mg 600 mg Oral Q6HPRN NIFEdipine (ADALAT) capsule 10 mg 10 mg Oral PRN - SEE INSTRUCTIONS And NIFEdipine (ADALAT) capsule 20 mg 20 mg Oral PRN - SEE INSTRUCTIONS And labetaloL (NORMODYNE) injection 20 mg 20 mg Slow IV Push PRN - SEE INSTRUCTIONS magnesium sulfate 500 mg/mL (50 %) injection 16.24 mEq 2 g Slow IV Push PRN - SEE INSTRUCTIONS magnesium sulfate 500 mg/mL (50 %) injection 32.48 mEq 4 g Slow IV Push PRN - SEE INSTRUCTIONS magnesium sulfate loading dose from bag 6 g IV Infusion ONCE And magnesium sulfate in water for injection 20 gram/500 mL (4 %) IV infusion 2 g/hr IV Infusion CONTINUOUS 50 mL/hr at 01/12/241820 2 g/hr at 01/12/24 182 Allergies and drug reactions: Patient has no known allergies. HOME MEDICATIONS Medications Prior to Admission Medication Sig Dispense Refill Last Dose docusate 100 mg capsule Take 2 capsules by mouth once daily as needed for Constipation. 60 capsule 1 Taking ferrous sulfate 325 mg (65 mg iron) tablet Take 1 tablet by mouth in the morning. 30 tablet 2 Taking HYDROcodone-acetaminophen 5-325 mg tablet Take 1 tablet by mouth every 6 (six) hours as needed (Pain scale above 4) for up to 7 days. Do not exceed 3 grams of acetaminophen in 24 hours. Indications: acute pain 28 tablet 0 Taking ibuprofen 600 mg tablet Take 1 tablet by mouth every 6 (six) hours as needed (Pain). Take with food or milk. 60 tablet 1 Taking vitamin w/FA tablet Take 1 tablet by mouth in the morning. 100 tablet 3 Taking SOCIAL HISTORY Tobacco History: Social History Tobacco Use Smoking Status Never Smokeless Tobacco Never Drug History: Social History Substance and Sexual Activity Drug Use Never Alcohol History: Social History Substance and Sexual Activity Alcohol Use Not Currently FAMILY HISTORY No family history on file. REVIEW OF SYSTEMS General: negative Constitutional: negative Eyes: negative ENT/Mouth: negative Cardiovascular: negative Respiratory: negative Gastrointestinal:negative Genitourinary: negative Musculoskeletal: negative Skin/breast: negative Neurological: as above Psychiatric: negative Endocrine: negative Hemat/Lymph: negative Allergic/Immuno:none VITAL SIGNS BP: (129-138)/(79-102) Temp: [36.7 ?C (98 ?F)-36.8 ?C (98.3 ?F)] Temp source: Oral (01/11 1830) Pulse: [72-92] Resp: [16-18] SpO2: [99 %-100 %] Height: [152.4 cm (5')] Weight: [73.5 kg (162 lb)-73.9 kg (162 lb 14.4 oz)] BMI (calculated): [31.64-31.81] PHYSICAL EXAMINATIONS Gen: alert and oriented, well appearing, no distress CV: RRR Resp: normal work of breathing Abd: gravid, soft, NTTP. Incision is clean, intact and dry. No sign of infection Ext: no calf tenderness or edema DLR + 2, brisk No clonus REVIEW OF LABORATORY, PATHOLOGY, AND RADIOLOGY DATA Lab results: Type & Screen HIV Hep B Syphilis Chlamydia ABO & RH Date Value Ref Range Status 01/06/2024 A POSITIVE Final No results found for: "HIVMULTIPLEX" No components found for: "HBSHBSAG" No results found for: "SYPIGG" C. trachomatis Nucleic Acid Date Value Ref Range Status 12/23/2023 Negative Negative Final IAT Date Value Ref Range Status 01/06/2024 Negative Final Varicella Rubella Glucose Group B Strep CBC VZV IgG antibody Date Value Ref Range Status 07/01/2023 Equivocal Negative Final Rubella screen IgG Date Value Ref Range Status 07/01/2023 Positive Negative Final GLUC 1 HR Date Value Ref Range Status 10/30/2023 121 120 - 170 mg/dL Final No results found for: "CGBS" HGB Date Value Ref Range Status 01/07/2024 9.5 (L) 11.6 - 15.0 g/dL Final HCT Date Value Ref Range Status 01/07/2024 28.7 (L) 35.7 - 45.2 % Final PLT Date Value Ref Range Status 01/07/2024 203 166 - 358 10*3/?L Final Active Hospital Problems Diagnosis Date Noted headache 01/12/2024 S/P section 01/12/2024 Preeclampsia in period 12/30/2023 Resolved Hospital Problems No resolved problems to display. Present on Admission: headache Preeclampsia in period S/P section ASSESSMENT AND PLAN Laina Ca is a 18 year old who POD#6 s/p RLTCS presents with headaches preeclampsia with SF - will start MgSO4 - BP WNL on admission, will continue to monitor - Esgic prescribed for headaches PRN S/p section - Incision C/D/I - Continue Ibuprofen PRN for post op pain Rosio Thompson MD [facility] 2024-01-06 06:26:32 ANTEPARTUM HISTORY & PHYSICAL IDENTIFYING DATA Laina Ca is 18 year old, /White, 37w0d, female with ROBINSON 01/27/2024, by Ultrasound. : 2005 Primary Care Physician: Lorenzo Isabel [facility] Day: 1 CHIEF COMPLAINT RCS HISTORY OF PRESENT ILLNESS 18 year old @37w0d presents for a repeat CS. Diagnosed with preeclampsia without SF. Good FM, denies vb or lof. No BLAS or RUQ pain. PAST OBSTETRIC HISTORY OB History Para Term AB Living 2 1 1 1 SAB IAB Ectopic Multiple Live Births 0 1 # Outcome Date GA Lbr Eder/2nd Weight Sex Delivery Anes PTL Lv 2 Current 1 Term 08/16/21 37w2d 2910 g M , L EPI N JENNIFER PAST MEDICAL HISTORY Problem list: Patient Active Problem List Diagnosis Date Noted Preeclampsia, third trimester 12/30/2023 Two vessel umbilical cord in [place] , antepartum 10/30/2023 Obesity (BMI 30-39.9) 08/31/2023 History of pre-eclampsia in prior , currently 07/02/2023 Previous section complicating 07/02/2023 BMI 30.0-30.9,adult 11/24/2022 High-risk in third trimester 01/07/2021 Operations: Past Surgical History: Procedure Laterality Date SECTION N/A 08/16/2021 Surgeon: Kadie Rock MD; Location: [facility] Prior surgeries at outside hospitals: none Past Medical History: Diagnosis Date Abnormal maternal glucose tolerance, antepartum 06/18/2021 Abnormal uterine bleeding 11/24/2022 Anemia of mother in , antepartum 06/18/2021 Galactorrhea 02/04/2023 PCOS (polycystic ovarian syndrome) 03/19/2023 PCOS (polycystic ovarian syndrome) 03/19/2023 Peritonsillar abscess 05/27/2022 Added automatically from request for surgery [id number] Possible exposure to STD 11/24/2022 Recurrent tonsillitis 05/27/2022 Severe preeclampsia, third trimester 08/15/2021 CURRENT HEALTH STATUS Medications: Current Facility-Administered Medications Medication Dose Route Frequency Last Rate Last Admin carboprost (HEMABATE) injection 250 mcg 250 mcg Intramuscular Q2HPRN ceFAZolin (ANCEF) 2,000 mg in NaCl 0.9% (NS) 100 mL MINI-BAG 2,000 mg IV Piggyback ONCE D5W-LR IV infusion 1,000 mL 1,000 mL IV Infusion TITRATE 125 mL/hr at 01/06/24 0625 1,000 mL at 01/06/24 0625 lactated ringers IV infusion 500 mL 500 mL IV Infusion PRN - SEE INSTRUCTIONS lidocaine 1% (PF) (XYLOCAINE) injection 0.3 mL 0.3 mL Infiltration PRN - SEE INSTRUCTIONS lidocaine 1% (XYLOCAINE) 10 mg/mL (1 %) injection 50 mL 50 mL Infiltration PRN - SEE INSTRUCTIONS methylergonovine (METHERGINE) injection 0.2 mg 0.2 mg Intramuscular Q4HPRN miSOPROStoL (CYTOTEC) tablet 200 mcg 200 mcg Rectal PRN oxytocin (PITOCIN) 30 units in NS 500 mL IV infusion 600 mL/hr IV Infusion PRN sodium citrate-citric acid (BICITRA) 500-334 mg/5 mL solution 30 mL 30 mL Oral PRE-PROCEDURE ONCE tranexamic acid (CYKLOKAPRON) 1,000 mg in NaCl 0.9% (NS) 250 mL piggyback 1,000 mg IV Piggyback PRN Allergies and drug reactions: Patient has no known allergies. HOME MEDICATIONS Medications Prior to Admission Medication Sig Dispense Refill Last Dose aspirin 81 mg Cap Take by mouth. Taking ferrous sulfate 325 mg (65 mg iron) tablet Take 1 tablet by mouth in the morning and 1 tablet in the evening. 60 tablet 0 Taking no115/iron/folic acid ( 19 ORAL) Take by mouth. Taking SOCIAL HISTORY Tobacco History: Social History Tobacco Use Smoking Status Never Smokeless Tobacco Never Drug History: Social History Substance and Sexual Activity Drug Use Never Alcohol History: Social History Substance and Sexual Activity Alcohol Use Not Currently FAMILY HISTORY No family history on file. REVIEW OF SYSTEMS General: negative Constitutional: weight gain Eyes: negative ENT/Mouth: negative Cardiovascular: negative Respiratory: negative Gastrointestinal:negative Genitourinary: negative Musculoskeletal: negative Skin/breast: negative Neurological: negative Psychiatric: negative Endocrine: negative Hemat/Lymph: negative Allergic/Immuno:none VITAL SIGNS BP: (130-134)/(86-90) Temp: [36.7 ?C (98.1 ?F)-36.9 ?C (98.5 ?F)] Temp source: Temporal Artery (01/05 0615) Pulse: [99] Resp: [16] SpO2: -- Height: [152.4 cm (5')] Weight: [78.9 kg (174 lb)-80.2 kg (176 lb 12.8 oz)] BMI (calculated): [33.98-34.53] PHYSICAL EXAMINATIONS General: well-developed, well-nourished Lungs: clear to auscultation bilaterally Cardiology: regular rate and rhythm Abdomen: tenderness - normal : OB pelvic exam performed? No Extremities: no clubbing, cyanosis, or edema Neuro: cranial nerves II through XII grossly intact; sensation grossly intact; muscle strength 5 out of 5 in all four extremities REVIEW OF LABORATORY, PATHOLOGY, AND RADIOLOGY DATA Lab results: CBC BMP PT/INR WBC (10*3/?L) Date Value 01/05/2024 9.24 NA (mmol/L) Date Value 12/29/2023 136 No results found for: "PT" RBC (10*6/?L) Date Value 01/05/2024 3.99 K (mmol/L) Date Value 12/29/2023 3.8 No results found for: "PTINR" PLT (10*3/?L) Date Value 01/05/2024 252 CALCIUM (mg/dL) Date Value 12/29/2023 9.0 HGB (g/dL) Date Value 01/05/2024 10.9 (L) CL (mmol/L) Date Value 12/29/2023 106 aPTT HCT (%) Date Value 01/05/2024 33.6 (L) BUN (mg/dL) Date Value 12/29/2023 4 (L) No results found for: "APTTPAT" CREATININE (mg/dL) Date Value 12/29/2023 0.39 (L) GLUCOSE (mg/dL) Date Value 12/29/2023 73 CO2 TOTAL (mmol/L) Date Value 12/29/2023 23 Type & Screen Rubella Varicella ABO & RH (no units) Date Value 12/30/2023 A POSITIVE Rubella screen IgG (no units) Date Value 07/01/2023 Positive No results found for: "VZVG" No results found for: "TSABINT" Hep B HIV Syphilis No results found for: "HBS" No results found for: "HIV" No results found for: "SYPG" Group B Strep Chlamydia No results found for: "CGBS" C. trachomatis Nucleic Acid (no units) Date Value 12/23/2023 Negative X-ray results: none Placenta Accreta Screening Prior ? : Yes Prior Uterine Surgery?: Yes Placenta low lying/previa in current ? : No Screening outcome: A positive screening outcome indicates a history of prior delivery or prior uterine surgery, AND the presence of either a placenta low lying/previa or ultrasound suspicion of PASD in the current . Negative screening. DELIVERY PLAN RCS HEART RATE 120 cat 1 Irregular contractions ASSESSMENT AND PLAN 18 year old @37w0d preeclampsia without SF for repeat CS Abx ordered Reassuring status Valentine Montes MD [facility] 2023-12-30 07:45:42 ANTEPARTUM HISTORY & PHYSICAL IDENTIFYING DATA Laina Ca is 18 year old, /White, 36w0d, female with ROBINSON 01/27/2024, by Ultrasound. : 2005 Primary Care Physician: Lorenzo Isabel [facility] Day: 1 CHIEF COMPLAINT contractions and elevated BPs HISTORY OF PRESENT ILLNESS 18 year old @36w0d Presents for elevated home Bps and contractions. Denies BLAS or RUQ pain. Contractions on and off. H/o preeclampsia in past . PAST OBSTETRIC HISTORY OB History Para Term AB Living 2 1 1 1 SAB IAB Ectopic Multiple Live Births 0 1 # Outcome Date GA Lbr Eder/2nd Weight Sex Delivery Anes PTL Lv 2 Current 1 Term 08/16/21 37w2d 2910 g M , L EPI N JENNIFER PAST MEDICAL HISTORY Problem list: Patient Active Problem List Diagnosis Date Noted Preeclampsia, third trimester 12/30/2023 uterine contractions in third trimester, antepartum 12/24/2023 Two vessel umbilical cord in [place] , antepartum 10/30/2023 Obesity (BMI 30-39.9) 08/31/2023 History of pre-eclampsia in prior , currently 07/02/2023 Previous section complicating 07/02/2023 Galactorrhea 02/04/2023 BMI 30.0-30.9,adult 11/24/2022 35 weeks gestation of 01/07/2021 High-risk in third trimester 01/07/2021 Operations: Past Surgical History: Procedure Laterality Date SECTION N/A 08/16/2021 Surgeon: Kadie Rock MD; Location: [facility] Prior surgeries at outside hospitals: none Past Medical History: Diagnosis Date Abnormal maternal glucose tolerance, antepartum 06/18/2021 Abnormal uterine bleeding 11/24/2022 Anemia of mother in , antepartum 06/18/2021 Galactorrhea 02/04/2023 PCOS (polycystic ovarian syndrome) 03/19/2023 PCOS (polycystic ovarian syndrome) 03/19/2023 Peritonsillar abscess 05/27/2022 Added automatically from request for surgery [id number] Possible exposure to STD 11/24/2022 Recurrent tonsillitis 05/27/2022 Severe preeclampsia, third trimester 08/15/2021 CURRENT HEALTH STATUS Medications: Current Facility-Administered Medications Medication Dose Route Frequency Last Rate Last Admin betamethasone acet,sod phos (CELESTONE SOLUSPAN) 6 mg/mL injection 12 mg 12 mg Intramuscular Q24H carboprost (HEMABATE) injection 250 mcg 250 mcg Intramuscular Q2HPRN D5W-LR IV infusion 1,000 mL 1,000 mL IV Infusion TITRATE lactated ringers IV infusion 500 mL 500 mL IV Infusion PRN - SEE INSTRUCTIONS lidocaine 1% (PF) (XYLOCAINE) injection 0.3 mL 0.3 mL Infiltration PRN - SEE INSTRUCTIONS lidocaine 1% (XYLOCAINE) 10 mg/mL (1 %) injection 50 mL 50 mL Infiltration PRN - SEE INSTRUCTIONS methylergonovine (METHERGINE) injection 0.2 mg 0.2 mg Intramuscular Q4HPRN miSOPROStoL (CYTOTEC) tablet 200 mcg 200 mcg Rectal PRN oxytocin (PITOCIN) 30 units in NS 500 mL IV infusion 600 mL/hr IV Infusion PRN sodium citrate-citric acid (BICITRA) 500-334 mg/5 mL solution 30 mL 30 mL Oral PRE-PROCEDURE ONCE tranexamic acid (CYKLOKAPRON) 1,000 mg in NaCl 0.9% (NS) 250 mL piggyback 1,000 mg IV Piggyback PRN Allergies and drug reactions: Patient has no known allergies. HOME MEDICATIONS Medications Prior to Admission Medication Sig Dispense Refill Last Dose famotidine 20 mg tablet Take 1 tablet by mouth in the morning and 1 tablet in the evening. 60 tablet 0 PRN ferrous sulfate 325 mg (65 mg iron) tablet Take 1 tablet by mouth in the morning and 1 tablet in the evening. 60 tablet 0 Taking metoclopramide HCl (REGLAN) 10 mg tablet Take 1 tablet by mouth every 6 (six) hours as needed for Nausea and Vomiting (N/V) or Gastroesophageal reflux. 30 tablet 1 PRN metroNIDAZOLE 500 mg tablet Take 1 tablet by mouth every 12 (twelve) hours for 7 days. 13 tablet 0 Taking doxylamine-pyridoxine, vit B6, (DICLEGIS) 10-10 mg per tablet Take 1 tablet by mouth at bedtime. 20 tablet 1 Not Taking no115/iron/folic acid ( 19 ORAL) Take by mouth. Taking Last taken: none SOCIAL HISTORY Tobacco History: Social History Tobacco Use Smoking Status Never Smokeless Tobacco Never Drug History: Social History Substance and Sexual Activity Drug Use Never Alcohol History: Social History Substance and Sexual Activity Alcohol Use Not Currently FAMILY HISTORY No family history on file. REVIEW OF SYSTEMS General: negative Constitutional: weight gain Eyes: negative ENT/Mouth: negative Cardiovascular: negative Respiratory: negative Gastrointestinal:pain Genitourinary: negative Musculoskeletal: negative Skin/breast: negative Neurological: negative Psychiatric: negative Endocrine: negative Hemat/Lymph: negative Allergic/Immuno:none VITAL SIGNS BP: (120-149)/(69-101) Temp: [36.6 ?C (97.9 ?F)] Temp source: Oral (12/29 228) Pulse: [70-87] Resp: [18-20] SpO2: [97 %-100 %] Height: [152.4 cm (5')] Weight: [78.5 kg (173 lb)-78.9 kg (173 lb 14.4 oz)] BMI (calculated): [33.79-33.96] PHYSICAL EXAMINATIONS General: well-developed, well-nourished Lungs: clear to auscultation bilaterally Cardiology: regular rate and rhythm Abdomen: tenderness - normal : OB pelvic exam performed? Yes. Dilation - 0 cm Effacement - 0 % % Station - -4 Presentation (fetus 1) - vertex Extremities: no clubbing, cyanosis, or edema Neuro: cranial nerves II through XII grossly intact; sensation grossly intact; muscle strength 5 out of 5 in all four extremities REVIEW OF LABORATORY, PATHOLOGY, AND RADIOLOGY DATA Lab results: CBC BMP PT/INR WBC (10*3/?L) Date Value 12/29/2023 8.94 NA (mmol/L) Date Value 12/29/2023 136 No results found for: "PT" RBC (10*6/?L) Date Value 12/29/2023 3.95 K (mmol/L) Date Value 12/29/2023 3.8 No results found for: "PTINR" PLT (10*3/?L) Date Value 12/29/2023 244 CALCIUM (mg/dL) Date Value 12/29/2023 9.0 HGB (g/dL) Date Value 12/29/2023 10.8 (L) CL (mmol/L) Date Value 12/29/2023 106 aPTT HCT (%) Date Value 12/29/2023 32.9 (L) BUN (mg/dL) Date Value 12/29/2023 4 (L) No results found for: "APTTPAT" CREATININE (mg/dL) Date Value 12/29/2023 0.39 (L) GLUCOSE (mg/dL) Date Value 12/29/2023 73 CO2 TOTAL (mmol/L) Date Value 12/29/2023 23 Type & Screen Rubella Varicella ABO & RH (no units) Date Value 10/30/2023 A Positive Rubella screen IgG (no units) Date Value 07/01/2023 Positive No results found for: "VZVG" No results found for: "TSABINT" Hep B HIV Syphilis No results found for: "HBS" No results found for: "HIV" No results found for: "SYPG" Group B Strep Chlamydia No results found for: "CGBS" C. trachomatis Nucleic Acid (no units) Date Value 12/23/2023 Negative X-ray results: none Placenta Accreta Screening Prior ? : Yes Prior Uterine Surgery?: Yes Placenta low lying/previa in current ? : No Screening outcome: A positive screening outcome indicates a history of prior delivery or prior uterine surgery, AND the presence of either a placenta low lying/previa or ultrasound suspicion of PASD in the current . Negative screening. DELIVERY PLAN [facility] HEART RATE 120 reactive [place]: 2 ctx /10 min ASSESSMENT AND PLAN 18 year old @36w0d Preeclampsia without SF --Monitor Bps contractions/Previous CS --Pt states frequency and pian have improved and have not resolved --Will start Celestone series --If cervical change or increased pain with contractions will proceed to [facility] Valentine Montes MD [facility] 2023-12-24 07:25:58 TRIAGE HISTORY & PHYSICAL IDENTIFYING DATA Laina Ca is 18 year old, /White, 35w1d, female with ROBINSON 01/27/2024, by Ultrasound. : 2005 Primary Care Physician: Lorenzo Hawk CHIEF COMPLAINT Elevated BPs at home HISTORY OF PRESENT ILLNESS Laina Ca is a 18 year old female @ 35w1d presented last night for evaluation. Patient reports that 2 days ago she had a nosebleed that lasted longer than usual. She typically has nosebleeds during but this time it lasts longer. Reports that she checked her blood pressure yesterday as she was not feeling well and noticed elevated blood pressure at home of 135/104 and 145/107. Reports legs edema and also feeling lightheaded with seeing floaters and lower abdominal cramping. Patient reports that she drinks adequate amount of water a day but has not been eating well due to intermittent nausea with heartburn. Has been eating smaller portions but does not work. Also reports increased vaginal discharge with mild dysuria x 1 week. +FM. No VB, LOF. All of her symptoms that she presented with yesterday have resolved this morning. PAST OBSTETRIC HISTORY OB History Para Term AB Living 2 1 1 1 SAB IAB Ectopic Multiple Live Births 0 1 # Outcome Date GA Lbr Eder/2nd Weight Sex Delivery Anes PTL Lv 2 Current 1 Term 08/16/21 37w2d 2910 g M , L EPI N JENNIFER PAST MEDICAL HISTORY Problem list: Patient Active Problem List Diagnosis Date Noted uterine contractions in third trimester, antepartum 12/24/2023 Two vessel umbilical cord in [place] , antepartum 10/30/2023 Obesity (BMI 30-39.9) 08/31/2023 History of pre-eclampsia in prior , currently 07/02/2023 Previous section 07/02/2023 Galactorrhea 02/04/2023 BMI 30.0-30.9,adult 11/24/2022 35 weeks gestation of 01/07/2021 High-risk in first trimester 01/07/2021 Operations: Past Surgical History: Procedure Laterality Date SECTION N/A 08/16/2021 Surgeon: Kadie Rock MD; Location: [facility] Past Medical History: Diagnosis Date Abnormal maternal glucose tolerance, antepartum 06/18/2021 Abnormal uterine bleeding 11/24/2022 Anemia of mother in , antepartum 06/18/2021 Galactorrhea 02/04/2023 PCOS (polycystic ovarian syndrome) 03/19/2023 PCOS (polycystic ovarian syndrome) 03/19/2023 Peritonsillar abscess 05/27/2022 Added automatically from request for surgery [id number] Possible exposure to STD 11/24/2022 Recurrent tonsillitis 05/27/2022 Severe preeclampsia, third trimester 08/15/2021 CURRENT HEALTH STATUS Medications: Current Facility-Administered Medications Medication Dose Route Frequency Last Rate Last Admin [id number] IV infusion 1,000 mL 1,000 mL IV Infusion CONTINUOUS 125 mL/hr at 12/24/23 0559 1,000 mL at 12/24/23 0559 metroNIDAZOLE (FLAGYL) tablet 500 mg 500 mg Oral Q12H 500 mg at 12/23/23 2027 Allergies and drug reactions: Patient has no known allergies. HOME MEDICATIONS Medications Prior to Admission Medication Sig Dispense Refill Last Dose [DISCONTINUED] proMETHazine 25 mg tablet Take 1 tablet by mouth every 8 (eight) hours as needed for Nausea and Vomiting (N/V). 15 tablet 0 Not Taking [DISCONTINUED] ampicillin 500 mg capsule Take 1 capsule by mouth every 6 (six) hours. 28 capsule 0 Not Taking [DISCONTINUED] ondansetron (ZOFRAN) 4 mg tablet Take 1 tablet by mouth every 6 (six) hours as needed for Nausea and Vomiting (N/V) (Every 6 hours as needed). 30 tablet 1 Not Taking doxylamine-pyridoxine, vit B6, (DICLEGIS) 10-10 mg per tablet Take 1 tablet by mouth at bedtime. 20 tablet 1 Not Taking no115/iron/folic acid ( 19 ORAL) Take by mouth. Taking SOCIAL HISTORY Tobacco History: Social History Tobacco Use Smoking Status Never Smokeless Tobacco Never Drug History: Social History Substance and Sexual Activity Drug Use Never Alcohol History: Social History Substance and Sexual Activity Alcohol Use Not Currently FAMILY HISTORY No family history on file. REVIEW OF SYSTEMS General: See HPI Constitutional: See HPI Eyes: See HPI ENT/Mouth: negative Cardiovascular: negative Respiratory: negative Gastrointestinal: See HPI Genitourinary: See HPI Musculoskeletal: negative Skin/breast: negative Neurological: negative Psychiatric: negative Endocrine: negative Hemat/Lymph: negative Allergic/Immuno:none VITAL SIGNS BP: (108-136)/(71-99) Temp: [36.8 ?C (98.2 ?F)-37.2 ?C (99 ?F)] Temp source: Oral (12/23 07) Pulse: [71-114] Resp: [16-18] SpO2: [98 %-100 %] Height: [152.4 cm (5')] Weight: [76.9 kg (169 lb 9.6 oz)] BMI (calculated): [33.12] PHYSICAL EXAMINATIONS Gen: alert and oriented, well appearing, no distress HEENT: Nasal turbinates appeared normal CV: RRR, normal S1/S2, no m/r/g Resp: normal work of breathing, lungs CTAB Abd: gravid, soft, NTTP Ext: no calf tenderness or edema : SVE by RN closed/thick/high. Greenish vaginal discharge noted. REVIEW OF LABORATORY, PATHOLOGY, AND RADIOLOGY DATA Lab results: Type & Screen HIV Hep B Syphilis Chlamydia ABO & RH Date Value Ref Range Status 10/30/2023 A Positive Final No results found for: "HIVMULTIPLEX" No components found for: "HBSHBSAG" No results found for: "SYPIGG" C. trachomatis Nucleic Acid Date Value Ref Range Status 07/13/2023 Negative Negative Final IAT Date Value Ref Range Status 10/30/2023 Negative Final Varicella Rubella Glucose Group B Strep CBC VZV IgG antibody Date Value Ref Range Status 07/01/2023 Equivocal Negative Final Rubella screen IgG Date Value Ref Range Status 07/01/2023 Positive Negative Final GLUC 1 HR Date Value Ref Range Status 10/30/2023 121 120 - 170 mg/dL Final No results found for: "CGBS" HGB Date Value Ref Range Status 12/23/2023 10.2 (L) 11.6 - 15.0 g/dL Final HCT Date Value Ref Range Status 12/23/2023 30.4 (L) 35.7 - 45.2 % Final PLT Date Value Ref Range Status 12/23/2023 249 166 - 358 10*3/?L Final Active Hospital Problems Diagnosis Date Noted uterine contractions in third trimester, antepartum 12/24/2023 Previous section 07/02/2023 35 weeks gestation of 01/07/2021 Resolved Hospital Problems No resolved problems to display. Present on Admission: 35 weeks gestation of Previous section ASSESSMENT AND PLAN Laina Ca is a 18 year old at 35w1d who presents with above complaints. contractions and previous x 1 -Status post IV hydration and terb x 1 -Contractions resolved -SVE closed/thick/high - + BV: On Flagyl - + Yeast vaginitis: Took Diflucan -UA appeared contaminated. Will await urine culture result Patient does not rule in for preeclampsia/gestational hypertension at this time. 2 mild ranging BP noted initially and normal since. 1 was in the ER and the second mild BP was on labor and delivery; however RN states that the elevated BP was inaccurate as blood pressure cuff was not at the correct location. Visual disturbances and lightheadedness resolved this morning. Discussed importance of adequate hydration and p.o. intake. Offered Pepcid and Reglan as needed nausea/GERD. Epistaxis -Platelet within normal limits; normal exam today -Advise to use humidifier and to use antihistamines as needed. Avoid irritation of her nose. Strip reactive and reassuring. Stable for discharge with strong PIH precautions and follow-up as scheduled for visit unless clinically indicated otherwise Kj Gallagher MD [facility]
[2024-10-12] MEDS ORDERED: NA CHLORIDE 0.9% 1,000 ML ONE (05:05)
[2024-10-12] MEDS ORDERED: FLUORESCEIN SODIUM 1 MG/WRAP ONE (05:05)
[2024-10-12] MEDS ORDERED: METOCLOPRAMIDE 10 MG/2mL INJ ONE (05:05)
[2024-10-12] MEDS ORDERED: DIPHENHYDRAMINE 50 MG/ML VIAL ONE (05:05)
[2024-10-12] MEDS ORDERED: TETRACAINE HCL 0.5% 4ML OPTH ONE (05:05)
[2024-10-12 05:13] LABS: Absolute Eosinophils 0.2 K/uL (0-0.5); Absolute Monocytes 0.6 K/uL (0.1-1.3); Absolute Neutrophil 4.1 K/uL (1.8-8.0); Basophils % 0.6 % (0-1.3); Eosinophils % 1.9 % (0-4.4); Hematocrit 39.7 % (36.0-45.0); Hemoglobin 13.5 g/dL (12.0-15.0); Lymphocytes % 38.1 % (15.3-44.8); MCH 29.3 pg (27.0-35.0); MCV 86.3 fL (80-100); Monocytes % 7.6 % (3.3-12.3); Neutrophils % 51.8 % (41.7-73.7); Nucleated Red Blood Cells % 0.1 % (0-0); Platelets 271 thou/uL (152-406)
[2024-10-12 05:28] LABS: Anion Gap 6.6 mEq/L (5.0-15.0); Bilirubin Total 0.2 mg/dL (0.2-1.0); Potassium 3.6 mEq/L (3.5-5.1)
[2024-10-12] MEDS ORDERED: KETOROLAC 30 MG/ML INJ ONE (06:02)
--- NOTE | 2024-10-12 06:37 | ER ---
Nurse's Notes [facility] Name: Laina Palomo Age: 19 yrs Sex: Female : 2005 Arrival Date: 10/12/2024 Time: 04:10 Bed 5 Private MD: Diagnosis: Ocular pain, right eye;Headache Presentation: 10/12 04:22 Chief complaint: Patient states: c/o r eye pain starting yesterday morning, states she al5 feels like a needle is stabbing her eye. states when she gets the eye pain, she gets a headache along with it. denies wearing contact lenses. pain is aggravated by light. denies flu like symptoms. Coronavirus screen: At this time, the client does not indicate any symptoms associated with coronavirus-19. Ebola Screen: No symptoms or risks identified at this time. Mechanism of Injury: No Mechanism of Injury. The patient denies any loss of vision. Initial Sepsis Screen: Does the patient meet any 2 criteria? HR > 90 bpm. No. Patient's initial sepsis screen is negative. Does the patient have a suspected source of infection? No. Patient's initial sepsis screen is negative. Risk Assessment: Do you want to hurt yourself or someone else? Patient reports no desire to harm self or others. Onset of symptoms was October 11, 2024. 04:22 Method Of Arrival: Ambulatory al5 04:22 Acuity: HI 4 al5 Triage Assessment: 04:27 General: Appears in no apparent distress. Behavior is calm, cooperative. Pain: al5 Complains of pain in right eye Quality of pain is described as stabbing. EENT: Eyes redness noted in R eye. Reports pain in right eye. Neuro: Level of Consciousness is awake, alert, obeys commands, Oriented to person, place, time, situation. Cardiovascular: Capillary refill < 3 seconds Patient's skin is warm and dry. Respiratory: Airway is patent Respiratory effort is even, unlabored, Respiratory pattern is regular, symmetrical. GI: No signs and/or symptoms were reported involving the gastrointestinal system. : No signs and/or symptoms were reported regarding the genitourinary system. Derm: Skin is intact, is healthy with good turgor, Skin is pink, warm \T\ dry. normal. Musculoskeletal: No signs and/or symptoms reported regarding the musculoskeletal system. Historical: - Allergies: 04:26 No Known Allergies; al5 - PMHx: 04:26 None; al5 - PSHx: 04:26 section; al5 - Immunization history:: Adult Immunizations up to date. - Infectious Disease History:: Denies. - Social history:: Smoking status: Reported history of juuling and/or vaping. Screenin:28 [facility] ED Fall Risk Assessment (Adult) History of falling in the last 3 months, al5 including since admission No falls in past 3 months (0 pts) Confusion or Disorientation No (0 pts) Intoxicated or Sedated No (0 pts) Impaired Gait No (0 pts) Mobility Assist Device Used No (0 pt) Altered Elimination No (0 pt) Score/Fall Risk Level 0 - 2 = Low Risk Oriented to surroundings, Maintained a safe environment, Hourly rounding (assess needs \T\ fall precautionary measures) done. Abuse screen: Denies threats or abuse. Denies injuries from another. Nutritional screening: No deficits noted. Tuberculosis screening: No symptoms or risk factors identified. Assessment: 04:28 Reassessment: see triage assessment. al5 04:29 EENT: Sclera/Cornea are reddened in outer aspect of conjuctiva of right eye and inner al5 aspect of conjuctiva of right eye. 06:11 Reassessment: Patient appears in no apparent distress at this time. Patient is alert, ay oriented x 3, equal unlabored respirations, skin warm/dry/pink. Patient denies pain at this time. Vital Signs: 04:22 BP 127 / 80; Pulse 93; Resp 16; Temp 97.6; Pulse Ox 100% on R/A; Weight 68.04 kg; al5 Height 5 ft. 0 in. ; 06:10 BP 108 / 66; Pulse 77; Resp 18 S; Pulse Ox 99% on R/A; ay 07:05 BP 102 / 62; Pulse 98; Resp 18; Pulse Ox 99% on R/A; ay 04:22 Body Mass Index 29.29 (68.04 kg, 152.4 cm) al5 Visual Acuity: 04:35 Left Eye Visual acuity 20/20, Normal, React To Light, Reactive To Accomodation; Right al5 Eye Visual acuity 20/20, React To Light, Reactive To Accomodation; Both Eyes Visual acuity 20/20; Without Lenses; ED Course: 04:12 Patient arrived in ED. [email or web address] 04:12 [facility] cp 04:12 Zay Mack MD is Attending Physician. cp 04:22 Davina Loco, NOBLE is Primary Nurse. al5 04:26 Triage completed. al5 04:28 Arm band placed on right wrist. Patient placed in the treatment room, on a stretcher. al5 04:28 Patient has correct armband on for positive identification. Bed in low position. Call al5 light in reach. Side rails up X 1. Provided Education on: plan of care. 04:29 No provider procedures requiring assistance completed. al5 04:50 Inserted saline lock: 20 gauge in right antecubital area, using aseptic technique. al5 Blood collected. Flushed with 10 mL NS. 05:08 CT Head Brain wo Cont In Process Unspecified. EDMS 06:36 Lisa Gamez MD is Referral Physician. cp 07:05 IV discontinued, intact, bleeding controlled, No redness/swelling at site. Pressure ay dressing applied. Administered Medications: 05:14 Drug: metoCLOPramide IVP 10 mg IVP once; over 1 to 2 minutes Route: IVP; Site: right al5 antecubital; 05:42 Follow up: Response: No adverse reaction ay 05:15 Drug: NS 0.9% IV 1000 ml IV at 1 bolus Per protocol; to be given as a bolus over 60 al5 minutes Route: IV; Rate: 1 bolus; Site: right antecubital; 07:08 Follow up: Response: No adverse reaction; IV Status: Completed infusion; IV Intake: ay 1000ml 05:15 Drug: diphenhydrAMINE IVP 25 mg IVP once Route: IVP; Site: right antecubital; al5 05:42 Follow up: Response: No adverse reaction ay 05:41 Drug: Tetracaine Ophthalmic Drops 0.5 % 1 drops Ophthalmic once Route: Ophthalmic; ay Site: right eye; 06:08 Drug: Ketorolac IVP 15 mg IVP once Route: IVP; Site: right antecubital; ay 07:07 Follow up: Response: No adverse reaction ay Medication: 04:28 VIS not applicable for this client. al5 Intake: 07:08 IV: 1000ml; Total: 1000ml. ay Outcome: 06:36 Discharge ordered by . sid 07:05 Discharged to home ambulatory, ay 07:05 Condition: stable 07:05 Discharge instructions given to patient, Instructed on discharge instructions, follow up and referral plans. medication usage, Demonstrated understanding of instructions, follow-up care, medications, Prescriptions given X 1, 07:07 Patient left the ED. ay Signatures: Dispatcher [employer] EDMS Zay Parada PA PA cp Jeffries, Jennifer [email or web address] Davina Loco RN RN al5 Aliyah Varner RN RN ay
--- NOTE | 2024-10-12 06:37 | EDPHYS ---
Physician Documentation [facility] Name: Laina Palomo Age: 19 yrs Sex: Female : 2005 Arrival Date: 10/12/2024 Time: 04:10 Bed 5 Private MD: ED Physician Zay Mack HPI: 10/12 04:45 This 19 yrs old Female presents to ER via Ambulatory with complaints of Eye cp Pain, Eye Problem. 04:45 The patient is experiencing pain. Onset: The symptoms/episode began/occurred yesterday. cp Duration: the symptoms are continuous. 04:45 Associated signs and symptoms: Pertinent positives: headache. cp 04:45 Patient does not utilize any form of vision correction. cp Historical: - Allergies: 04:26 No Known Allergies; al5 - PMHx: 04:26 None; al5 - PSHx: 04:26 section; al5 - Immunization history:: Adult Immunizations up to date. - Infectious Disease History:: Denies. - Social history:: Smoking status: Reported history of juuling and/or vaping. ROS: 04:50 Eyes: Positive for pain, photophobia, of the right eye, cp 04:50 Constitutional: Negative for body aches, chills, fever, cp 04:50 Respiratory: Negative for cough, shortness of breath, wheezing, 04:50 Neuro: Positive for headache, Exam: 05:54 Visual Acuity: I have reviewed the nursing documentation. cp 05:54 Head/Face: Normocephalic, atraumatic. 05:54 Constitutional: The patient appears in no acute distress, alert, awake, non-toxic, well developed, well nourished, uncomfortable, 05:54 Eyes: Periorbital structures: appear normal, Pupils: equal, round, and reactive to light and accomodation, Extraocular movements: intact throughout, Conjunctiva: normal, no exudate, no injection, Corneas: abrasion, is not appreciated, foreign body, is not appreciated, a fluorescein strip employed to appreciate the findings, Sclera: no appreciated abnormality, Lids and lashes: appear normal, bilaterally, Intraocular pressure: right eye = 11mmHg, left eye = 17mmHg, 05:54 ENT: External ear(s): are unremarkable, Nose: is normal, Mouth: Lips: moist, Oral mucosa: moist, Posterior pharynx: Airway: no evidence of obstruction, patent, 05:54 Neck: ROM/movement: is normal, is supple, without pain, no range of motions limitations, 05:54 Chest/axilla: Inspection: normal, 05:54 Cardiovascular: Rate: normal, 05:54 Respiratory: the patient does not display signs of respiratory distress, Respirations: normal, no use of accessory muscles, no retractions, labored breathing, is not present, Breath sounds: are clear throughout, no decreased breath sounds, 05:54 Abdomen/GI: Inspection: abdomen appears normal, 05:54 Skin: cellulitis, is not appreciated, no rash present. 05:54 Neuro: Orientation: to person, place \T\ time. Mentation: is normal, Motor: moves all fours, strength is normal, Gait: is steady, at a normal pace, without difficulty, Vital Signs: 04:22 BP 127 / 80; Pulse 93; Resp 16; Temp 97.6; Pulse Ox 100% on R/A; Weight 68.04 kg; al5 Height 5 ft. 0 in. ; 06:10 BP 108 / 66; Pulse 77; Resp 18 S; Pulse Ox 99% on R/A; ay 07:05 BP 102 / 62; Pulse 98; Resp 18; Pulse Ox 99% on R/A; ay 04:22 Body Mass Index 29.29 (68.04 kg, 152.4 cm) al5 Visual Acuity: 04:35 Left Eye Visual acuity 20/20, Normal, React To Light, Reactive To Accomodation; Right al5 Eye Visual acuity 20/20, React To Light, Reactive To Accomodation; Both Eyes Visual acuity 20/20; Without Lenses; MDM: 04:14 Medical Screening Exam initiated sanna 06:35 Data reviewed: vital signs, nurses notes, lab test result(s), radiologic studies, CT cp scan, I have discussed the patient's presentation/case with the attending Emergency Department Physician; and as a result, I will discharge patient. 06:35 Differential diagnosis: Corneal abrasion of Foreign body in migraine headache. I cp considered the following discharge prescriptions or medication management in the emergency department Medications were administered in the Emergency Department. See MAR. Independent interpretation of the following test(s) in the Emergency Department CT Scan: My interpretation is no acute findings noted on CT. Counseling: I had a detailed discussion with the patient and/or guardian regarding the historical points, exam findings, and any diagnostic results supporting the discharge/admit diagnosis, lab results, radiology results, to return to the emergency department if symptoms worsen or persist or if there are any questions or concerns that arise at home. Response to treatment: the patient's symptoms have markedly improved after treatment, and as a result, I will discharge patient. 10/12 04:44 Order name: CBC with Diff; Complete Time: 05:58 cp 10/12 05:58 Interpretation: Reviewed. cp 10/12 04:44 Order name: CMP; Complete Time: 05:58 cp 10/12 05:58 Interpretation: Reviewed. cp 10/12 04:57 Order name: Test, Serum cp 10/12 04:44 Order name: CT Head Brain wo Cont cp 10/12 04:44 Order name: IV; Complete Time: 05:00 cp 10/12 04:44 Order name: Visual Acuity; Complete Time: 04:47 cp 10/12 04:44 Order name: Eye Tray; Complete Time: 04:47 cp 10/12 04:44 Order name: Fluoresene Opth strip; Complete Time: 05:14 cp Administered Medications: 05:14 Drug: metoCLOPramide IVP 10 mg IVP once; over 1 to 2 minutes Route: IVP; Site: right al5 antecubital; 05:42 Follow up: Response: No adverse reaction ay 05:15 Drug: NS 0.9% IV 1000 ml IV at 1 bolus Per protocol; to be given as a bolus over 60 al5 minutes Route: IV; Rate: 1 bolus; Site: right antecubital; 07:08 Follow up: Response: No adverse reaction; IV Status: Completed infusion; IV Intake: ay 1000ml 05:15 Drug: diphenhydrAMINE IVP 25 mg IVP once Route: IVP; Site: right antecubital; al5 05:42 Follow up: Response: No adverse reaction ay 05:41 Drug: Tetracaine Ophthalmic Drops 0.5 % 1 drops Ophthalmic once Route: Ophthalmic; ay Site: right eye; 06:08 Drug: Ketorolac IVP 15 mg IVP once Route: IVP; Site: right antecubital; ay 07:07 Follow up: Response: No adverse reaction ay Disposition: 23:27 Chart complete. cp 10/13 06:26 Co-signature as Attending Physician, Zay Mack MD I agree with the assessment and [facility] of care. Disposition Summary: 10/12/24 06:36 Discharge Ordered Notes: Location: Home cp Problem: new cp Symptoms: have improved cp Condition: Stable cp Diagnosis - Ocular pain, right eye cp - Headache cp Followup: cp - With: Lisa Gamez MD - When: 2 - 3 days - Reason: right eye pain Discharge Instructions: - Discharge Summary Sheet cp - General Headache Without Cause cp Forms: - Medication Reconciliation Form cp - Antibiotic Education cp - Prescription Opioid Use cp - Patient Portal Instructions cp - Leadership Thank You Letter cp Prescriptions: - Ibuprofen 800 mg Oral Tablet - take 1 tablet ORAL route every 8 hours As needed take with food; 30 tablet; cp Refills: 0, Product Selection Permitted Signatures: Dispatcher [employer] EDZay Santizo MD MD cha Page, Corey, PA PA cp Langhorst, Amanda RN RN al5 Aliyah Varner RN RN ay Corrections: (The following items were deleted from the chart) 10/12 04:44 04:44 Head Brain Wo Cont+CT.RAD.BRZ ordered. EDMS EDMS 04:45 04:45 CBC+H.LAB.BRZ ordered. EDMS EDMS 04:45 04:45 COMPREHENSIVE METABOLIC PANEL+C.LAB.BRZ ordered. EDMS EDMS 06:08 05:54 Eyes: Periorbital structures: appear normal, Pupils: equal, round, and reactive cp to light and accomodation, Extraocular movements: intact throughout, Conjunctiva: normal, no exudate, no injection, Corneas: abrasion, is not appreciated, foreign body, is not appreciated, a fluorescein strip employed to appreciate the findings, Sclera: no appreciated abnormality, Lids and lashes: appear normal, bilaterally, cp
--- NOTE | 2024-10-12 07:23 | RAD REPORT ---
CLINICAL HISTORY: Right eye pain, headache. COMPARISON: CT Head 12/13/2017. 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 FINDINGS: There is no acute hemorrhage, mass effect or midline shift. Loya-white differentiation is preserved. There is no hydrocephalus. There is no significant volume loss for age. The calvarium is intact. Orbits and globes are unremarkable. The paranasal sinuses are clear. Mastoid air cells are clear. IMPRESSION: No acute intracranial findings. Electronically signed by: Coleman Wesley MD 10/12/2024 06:55 AM FOOD BEVERAGE ATTENDANT Due to temporary technical issues with the PACS/Viigo reporting system, reports are being analia d by the in-house radiologist without review as a courtesy to ensure prompt reporting the interpreting radiologist is fully responsible for the content of the report. Transcribed Date/Time: 10/12/2024 7:23 AM
[2024-10-12 08:41] VITALS: TEMP 97.6
[2024-10-12 08:42] VITALS: BP 102/62; O2SAT 99
== END 2024-10-12 07:07 | disposition home or self-care (01) ==
LOC: ER 04:10
DX: H57.11 Ocular pain, right eye (principal); R51.9 Headache, unspecified
CPT/HCPCS: 36415; 70450; 80053; 84703; 85025; 96361; 96374; 96375; 99284; J1200; J2765; J7030